=== PATIENT | male | born 1935 | race Caucasian/White ===

== ENCOUNTER → 2016-09-17 | Outpatient (CLI) | payer BC ==
[~2016-09-17] MED LIST: ASCAUNK; ATR25 PO; CALCTAB5 PO; CLON1TAB3 PO; CLX20 PO; LISI20TA PO; OMEG10007 PO; SIMV20TA2 PO; SNQ50 PO; [UNRECOGNIZED DRUG - OTHER] PO
[2016-09-17 14:58] LABS: URINE APPEARANCE CLEAR (CLEAR); URINE BILIRUBIN NEG (NEG); URINE COLOR YELLOW; URINE NITRITE NEG (NEG); URINE PH 7.5 (4.5-7.5); URINE SPECIFIC GRAVITY 1.021 (1.000-1.030); UROBILINOGEN NEG (NEG); ZZUR CULT IF INDIC CLEAN CATCH NO
[2016-09-17 15:06] LABS: BASO % 0.2 %; BASO ABS # 0.02 K/uL (0-0.2); COMPLETE YES; EOS % 0.5 %; HEMATOCRIT 45.9 % (42-52); IG% 0.3 %; LYMPH % 13.4 %; LYMPH ABS # 1.36 K/uL (1.2-3.4); MEAN CELL VOLUME 83.8 fL (80-100); MEAN CORPUSCULAR HEMOGLOBIN 27.2 pg (25-34); MEAN CORPUSCULAR HGB CONC 32.5 g/dl (32-36); MEAN PLATELET VOLUME 8.7 fL (7.4-10.4); NEUT % 78.6 %; PLATELET COUNT 379 K/uL (130-400); RED BLOOD COUNT 5.48 M/uL (4.7-6.1); WHITE BLOOD COUNT 10.16 K/uL (4.8-10.8)
[2016-09-17 15:07] LABS: MANUAL MICROSCOPIC REQUIRED? NO; REVIEW REQ? NO
[2016-09-17 15:37] LABS: AST/SGOT 14 U/L (15-37); BLOOD UREA NITROGEN 16 mg/dl (7-18); BUN/CREATININE RATIO 19.1 (10-20); CALCIUM 9.3 mg/dl (8.5-10.1); CARBON DIOXIDE 29 mmol/L (21-32); CHLORIDE 106 mmol/L (98-107); CREATININE 0.84 mg/dl (0.60-1.40); GLUCOSE 108 mg/dl (70-99); POTASSIUM 4.3 mmol/L (3.5-5.1); SODIUM 140 mmol/L (136-145); URIC ACID 5.3 mg/dl (2.6-7.2)
[2016-09-17 15:41] LABS: ALB/GLOB RATIO 0.9 (0.9-2); ALKALINE PHOSPHATASE 75 U/L (45-117); ALT/SGPT 30 U/L (12-78); RHEUMATOID FACTOR < 10.0 U/mL (0-15)
[2016-09-17 16:00] LABS: LYME DISEASE AB IGG NEG (NEG); LYME DISEASE AB IGM NEG (NEG)
== END | disposition home or self-care (01) ==
LOC: C.LABBC 10:52
PROVIDERS: ATTEND Internal Medicine Geriatric Medicine
DX: I10 Essential (primary) hypertension (principal); M19.90 Unspecified osteoarthritis, unspecified site; M25.519 Pain in unspecified shoulder; E11.9 Type 2 diabetes mellitus without complications

== ENCOUNTER → 2016-09-28 | Outpatient (CLI) | payer BC ==
--- NOTE | 2016-09-28 15:38 | DIAGNOSTIC IMAGING REPORT ---
RIGHT SHOULDER MIN 2 VIEWS ROUTINE CLINICAL HISTORY: BILATERAL SHOULDER PAIN Right pain COMPARISON: None. DISCUSSION: Moderate degenerative change glenohumeral as well as acromioclavicular joint. Several old rib fractures including ribs 345 and 6. Bony mineralization throughout is somewhat diminished. There is no evidence for soft tissue swelling. IMPRESSION: Moderate degenerative change throughout the right shoulder. Several old right-sided rib fractures. Electronically signed by: Tal Wallace M.D. 09/28/2016 3:36 PM Dictated Date/Time: 09/28/2016 3:36 PM
--- NOTE | 2016-09-28 15:40 | DIAGNOSTIC IMAGING REPORT ---
LEFT SHOULDER MIN 2 VIEWS ROUTINE CLINICAL HISTORY: BILATERAL SHOULDER PAIN pain COMPARISON: None. DISCUSSION: Moderate degenerative change acromioclavicular and glenohumeral joint. Bony mineralization is somewhat diminished. There are no abnormal soft tissue calcifications. Moderate degenerative change. Osteopenia. IMPRESSION: Moderate degenerative change. Osteopenia. Electronically signed by: Tal Wallace M.D. 09/28/2016 3:38 PM Dictated Date/Time: 09/28/2016 3:37 PM
--- NOTE | 2016-09-28 15:44 | DIAGNOSTIC IMAGING REPORT ---
BILATERAL KNEES, AP STANDING CLINICAL HISTORY: KNEE PAIN, BILATERAL STANDING KNEES COMPARISON STUDY: Left knee 12/20/2014. FINDINGS: Severe osteoarthritis within the medial compartment of the left knee demonstrating [id number] articulation and subchondral sclerosis. This has progressed. Moderate cartilage space narrowing within the lateral compartment of the right knee and mild cartilage space narrowing within the medial compartment of the right knee. No fracture or dislocation within the right or left knee. Soft tissues are unremarkable. IMPRESSION: 1. Severe osteoarthritis within the medial compartment of the left knee which has progressed. 2. Mild to moderate osteoarthritis within the right knee. Electronically signed by: Eduar Huizar M.D. 09/28/2016 3:42 PM Dictated Date/Time: 09/28/2016 3:41 PM
== END | disposition home or self-care (01) ==
LOC: C.RADBC 14:49
PROVIDERS: ATTEND Internal Medicine Geriatric Medicine
DX: M17.12 Unilateral primary osteoarthritis, left knee (principal); M25.561 Pain in right knee; M25.511 Pain in right shoulder; M85.812 Other specified disorders of bone density and structure, left shoulder

== ENCOUNTER → 2016-10-08 | Outpatient (CLI) | payer BC ==
[2016-10-08 11:54] LABS: BLOOD UREA NITROGEN 16 mg/dl (7-18); BUN/CREATININE RATIO 17.7 (10-20); CALCIUM 9.5 mg/dl (8.5-10.1); CARBON DIOXIDE 30 mmol/L (21-32); CHLORIDE 105 mmol/L (98-107); CREATININE 0.92 mg/dl (0.60-1.40); GLUCOSE 100 mg/dl (70-99); POTASSIUM 3.9 mmol/L (3.5-5.1); SODIUM 142 mmol/L (136-145)
== END | disposition home or self-care (01) ==
LOC: C.LABBC 07:33
PROVIDERS: ATTEND Internal Medicine Geriatric Medicine
DX: I10 Essential (primary) hypertension (principal); E11.9 Type 2 diabetes mellitus without complications

== ENCOUNTER → 2016-11-22 | Outpatient (CLI) | payer BC | END | disposition home or self-care (01) | LOC: C.LABBC 08:24 | PROVIDERS: ATTEND Internal Medicine Rheumatology | DX: M35.3 Polymyalgia rheumatica (principal); R70.0 Elevated erythrocyte sedimentation rate; Z79.52 Long term (current) use of systemic steroids ==

== ENCOUNTER → 2016-12-20 | Outpatient (CLI) | payer BC ==
[2016-12-20 13:47] LABS: BASO % 0.1 %; BASO ABS # 0.01 K/uL (0-0.2); COMPLETE YES; EOS % 0.5 %; HEMATOCRIT 46.5 % (42-52); IG% 0.3 %; LYMPH % 26.7 %; LYMPH ABS # 3.51 K/uL (1.2-3.4); MEAN CELL VOLUME 86.8 fL (80-100); MEAN CORPUSCULAR HEMOGLOBIN 27.1 pg (25-34); MEAN CORPUSCULAR HGB CONC 31.2 g/dl (32-36); MEAN PLATELET VOLUME 9.4 fL (7.4-10.4); MONO % 4.4 %; PLATELET COUNT 294 K/uL (130-400); RED BLOOD COUNT 5.36 M/uL (4.7-6.1); WHITE BLOOD COUNT 13.15 K/uL (4.8-10.8)
[2016-12-20 14:00] LABS: ALT/SGPT 35 U/L (12-78); AST/SGOT 11 U/L (15-37); BLOOD UREA NITROGEN 19 mg/dl (7-18); BUN/CREATININE RATIO 17.5 (10-20); CALCIUM 8.9 mg/dl (8.5-10.1); CARBON DIOXIDE 28 mmol/L (21-32); CHLORIDE 106 mmol/L (98-107); GLUCOSE 277 mg/dl (70-99); POTASSIUM 3.9 mmol/L (3.5-5.1); SODIUM 142 mmol/L (136-145)
[2016-12-20 14:10] LABS: ALB/GLOB RATIO 1.1 (0.9-2); ALKALINE PHOSPHATASE 66 U/L (45-117); FERRITIN 287.1 ng/ml (8.0-388.0); PROSTATE SPECIFIC ANTIGEN 0.541 ng/ml (0.000-4.000)
[2016-12-20 14:18] LABS: ESTIMATED AVERAGE GLUCOSE 174 mg/dl; HA1C FLAG Normal (Normal)
== END | disposition home or self-care (01) ==
LOC: C.LABBC 10:01
PROVIDERS: ATTEND Internal Medicine Rheumatology
DX: I10 Essential (primary) hypertension (principal); E78.5 Hyperlipidemia, unspecified; C61 Malignant neoplasm of prostate; F32.9 Major depressive disorder, single episode, unspecified; M19.90 Unspecified osteoarthritis, unspecified site; G47.61 Periodic limb movement disorder; R73.9 Hyperglycemia, unspecified; E55.9 Vitamin D deficiency, unspecified; M35.3 Polymyalgia rheumatica; Z79.52 Long term (current) use of systemic steroids; T38.0X1A Poisoning by glucocorticoids and synthetic analogues, accidental (unintentional), initial encounter; M81.8 Other osteoporosis without current pathological fracture

== ENCOUNTER → 2016-12-24 | Outpatient (CLI) | payer BC | END | disposition home or self-care (01) | LOC: C.LABSPEC 16:57 | PROVIDERS: ATTEND Urology | DX: R39.9 Unspecified symptoms and signs involving the genitourinary system (principal) ==

== ENCOUNTER → 2016-12-26 | Outpatient (CLI) | payer BC | END | disposition home or self-care (01) | LOC: C.MAMM 09:09 | PROVIDERS: ATTEND Internal Medicine Rheumatology | DX: M85.851 Other specified disorders of bone density and structure, right thigh (principal); M85.852 Other specified disorders of bone density and structure, left thigh ==

== ENCOUNTER → 2017-01-31 | Outpatient (CLI) | payer BC | END | disposition home or self-care (01) | LOC: C.LAB 07:13 | PROVIDERS: ATTEND Internal Medicine Rheumatology | DX: M35.3 Polymyalgia rheumatica (principal); T38.0X1A Poisoning by glucocorticoids and synthetic analogues, accidental (unintentional), initial encounter; E55.9 Vitamin D deficiency, unspecified ==

== ENCOUNTER → 2017-03-12 | Outpatient (CLI) | payer BC | END | disposition home or self-care (01) | LOC: C.LABBC 08:25 | PROVIDERS: ATTEND Internal Medicine Rheumatology | DX: M35.3 Polymyalgia rheumatica (principal); Z51.81 Encounter for therapeutic drug level monitoring; Z79.52 Long term (current) use of systemic steroids; T38.0X1A Poisoning by glucocorticoids and synthetic analogues, accidental (unintentional), initial encounter ==

== ENCOUNTER → 2017-04-15 | Outpatient (CLI) | payer BC ==
[2017-04-15 11:01] LABS: BLOOD UREA NITROGEN 18 mg/dl (7-18); BUN/CREATININE RATIO 17.5 (10-20); CALCIUM 8.9 mg/dl (8.5-10.1); CARBON DIOXIDE 30 mmol/L (21-32); CHLORIDE 107 mmol/L (98-107); CHOLESTEROL 166 mg/dl (0-200); CREATININE 1.01 mg/dl (0.60-1.40); GLUCOSE 126 mg/dl (70-99); POTASSIUM 4.1 mmol/L (3.5-5.1); SODIUM 143 mmol/L (136-145); TRIGLYCERIDES 196 mg/dl (0-150); VERY LOW DENSITY LIPOPROT CALC 39 mg/dl
[2017-04-15 11:06] LABS: ESTIMATED AVERAGE GLUCOSE 143 mg/dl; HA1C FLAG Normal (Normal)
[2017-04-15 11:12] LABS: CHOLESTEROL/HDL RATIO 3.1; HDL CHOLESTEROL 54 mg/dl; LDL CHOLESTEROL CALCULATED 73 mg/dl
[2017-04-15 11:37] LABS: URINE PROTIEN/CREAT RATIO 0.1 (0-0.2); URINE TOTAL PROTEIN 29.9 mg/dl (0-11.9)
== END | disposition home or self-care (01) ==
LOC: C.LABBC 08:12
PROVIDERS: ATTEND Internal Medicine Rheumatology
DX: I10 Essential (primary) hypertension (principal); E78.5 Hyperlipidemia, unspecified; E11.9 Type 2 diabetes mellitus without complications

== ENCOUNTER → 2017-05-01 | Outpatient (CLI) | payer BC ==
--- NOTE | 2017-05-01 11:51 | DIAGNOSTIC IMAGING REPORT ---
CHEST 2 VIEWS ROUTINE HISTORY: COUGH COMPARISON: Chest 04/16/2010. FINDINGS: The lungs are clear. Cardiac silhouette is normal in size. No pleural effusions. No pneumothorax. Old, healed right-sided rib fractures. IMPRESSION: No acute process. Electronically signed by: Eduar Huizar M.D. 05/01/2017 11:49 AM Dictated Date/Time: 05/01/2017 11:48 AM
== END | disposition home or self-care (01) ==
LOC: C.RADBC 11:10
PROVIDERS: ATTEND Internal Medicine Geriatric Medicine
DX: R05 Cough (principal)

== ENCOUNTER → 2017-05-24 | Outpatient (CLI) | payer BC | END | disposition home or self-care (01) | LOC: C.LABBC 07:30 | PROVIDERS: ATTEND Internal Medicine Rheumatology | DX: M35.3 Polymyalgia rheumatica (principal); Z79.52 Long term (current) use of systemic steroids; R60.9 Edema, unspecified; R73.09 Other abnormal glucose ==

== ENCOUNTER → 2017-06-27 | Outpatient (CLI) | payer BC | LOC: C.LABBC 07:54 | PROVIDERS: ATTEND Internal Medicine Rheumatology | DX: M35.3 Polymyalgia rheumatica (principal); Z79.52 Long term (current) use of systemic steroids; R60.9 Edema, unspecified ==

== ENCOUNTER → 2017-07-26 | Outpatient (CLI) | payer BC | END | disposition home or self-care (01) | LOC: C.LABBC 09:26 | PROVIDERS: ATTEND Internal Medicine Rheumatology | DX: M35.3 Polymyalgia rheumatica (principal); Z79.52 Long term (current) use of systemic steroids; M81.8 Other osteoporosis without current pathological fracture; R60.9 Edema, unspecified ==

== ENCOUNTER → 2017-08-01 | Outpatient (CLI) | payer BC | END | disposition home or self-care (01) | LOC: C.RDSM 10:00 | PROVIDERS: ATTEND Family Medicine Sports Medicine | DX: M25.562 Pain in left knee (principal) ==

== ENCOUNTER → 2017-08-02 | Outpatient (CLI) | payer BC | END | disposition home or self-care (01) | LOC: C.LAB 11:06 | PROVIDERS: ATTEND Internal Medicine Gastroenterology | DX: K29.60 Other gastritis without bleeding (principal) ==

== ENCOUNTER → 2017-09-05 | Outpatient (CLI) | payer BC | END | disposition home or self-care (01) | LOC: C.LABBC 10:28 | PROVIDERS: ATTEND Internal Medicine Rheumatology | DX: M35.3 Polymyalgia rheumatica (principal); M81.8 Other osteoporosis without current pathological fracture; R60.9 Edema, unspecified ==

== ENCOUNTER → 2017-10-10 | Outpatient (CLI) | payer BC | END | disposition home or self-care (01) | LOC: C.LABBC 10:25 | PROVIDERS: ATTEND Internal Medicine Rheumatology | DX: M35.3 Polymyalgia rheumatica (principal); M81.8 Other osteoporosis without current pathological fracture; R60.9 Edema, unspecified; M25.562 Pain in left knee ==

== ENCOUNTER 2020-04-24 11:20 | Inpatient (IN) ==
[2020-04-24 11:51] LABS: Hematocrit (blood only) 47.8 % (42-52); Hemoglobin 16.1 g/dL (14.0-18.0); Mean Corpuscular Hemoglobin 28.4 pg (25-34); Mean Corpuscular Hgb Conc 33.7 g/dL (32-36); Mean Corpuscular Volume 84.5 fL (80-100); Mean Platelet Volume 9.1 fL (7.4-10.4); Platelet Count 356 K/uL (130-400); RDW Coefficient of Variation 14.8 % (11.5-14.5); RDW Standard Deviation 45.5 fL (36.4-46.3); Red Blood Count 5.66 M/uL (4.7-6.1); White Blood Count 24.19 K/uL (4.8-10.8)
[2020-04-24 11:54] LABS: INR 1.1 (0.9-1.1); Partial Thromboplastin Ratio 1.1; Prothrombin Time 11.8 Seconds (9.0-12.0)
[2020-04-24 12:00] LABS: Albumin Level 3.8 gm/dl (3.4-5.0); Calcium 9.5 mg/dl (8.5-10.1); Est GFR (African American) 61.8; Est GFR (Non-African American) 53.4; Magnesium 2.3 mg/dl (1.8-2.4); Potassium 4.2 mmol/L (3.5-5.1)
[2020-04-24] MEDS ORDERED: OPTIRAY 320 125ml IV ONE (12:09)
[2020-04-24 12:16] LABS: iSTAT Hemoglobin 16.3 g/dl (14.0-18.0); iSTAT Ionized Calcium 1.16 mmol/l (1.12-1.32); iSTAT Potassium 4.2 mmol/L (3.3-5.0)
--- NOTE | 2020-04-24 12:22 | Emergency Department Note ---
Impression & Plan Fall, Rhabdomyolysis, Abrasion of face, Abrasion of elbow, Abrasion of ankle, Pressure injury of left buttock, stage 2, Acute UTI, Multiple fractures of ribs of left side ED Provider Note Provider: Yuri Dupont MD DATE OF SERVICE:04/24/2020 CHIEF COMPLAINT: Fall, weakness HISTORY OF PRESENT ILLNESS: Patient is a 84-year-old gentleman with a past medical history of type 2 diabetes, prostate cancer, hypertension presenting today via ambulance from home. Patient was in apartment by himself and was found by his daughter today partially under his bed. Patient was stuck there and unable to get up. Patient himself is unsure how long is on the ground. Daughter reports that he last took his supper medications at 5 PM on Saturday and could have been on the floor for more than 36 hours. Patient himself is somewhat difficult to understand as he has some dysarthria. Patient complains of some abrasions on the bilateral elbows, and the right hand. Denies other significant pain at this point. Daughter states that he appears to have some swelling of the left side of his face and a little bit of left facial droop. No reported normal deficits. Daughter states the patient normally ambulates with a cane and unfortunately has been falling more frequently. No fever or infectious URI symptoms are reported. REVIEW OF SYSTEMS: Difficult to obtain secondary the patient's dysarthria and speech issues. PAST MEDICAL HISTORY: As noted above MEDICATIONS: Reviewed the patient's home medication list not included anticoagulants. SOCIAL HISTORY: Lives at home in apartment by himself, retired former smoker PHYSICAL EXAM: GENERAL: alert in no acute distress on stretcher Head: Swelling left-sided facial contusion overlying left islam area and some abrasion. EYES: No injection, discharge or icterus. PERRL NECK: Trachea midline. Supple with some slight swelling on the left side of the neck without crepitus. No posterior midline tenderness. ENT: Mucous membranes pink and moist. LUNGS: Airway patent. No retractions. Breath sounds clear HEART: Regular rate and rhythm mild left-sided chest wall tenderness. ABDOMEN: Soft and non-tender, without guarding or rebound. BACK: No significant midline tenderness. SKIN: Acyanotic, warm, dry. Patient does have a left buttock area and approximate 10 x 14 cm area of stage II pressure ulceration. There is some small faint areas of slight erythema overlying the left lower rib cage and left upper abdomen consistent with likely a stage I pressure ulceration. EXTREMITIES: Patient has some slight abrasions of the bilateral medial lateral ankles, the bilateral elbows, a few abrasions overlying the left dorsal medial hand. No significant snuffbox tenderness. No significant pain with ROM of the lower extremities. Good capillary refill of all extremities. NEUROLOGICAL: No focal deficits. No aphasia. Significant dysarthria and mild left facial droop noted. Intact strength the right upper extremity and right lower extremity. Intact left plantar and dorsiflexion but weakness of the left hip flexion and decreased pain to the left forearm and hand strength iron bender. Patient is improved some with hearing aids but unable to get a good clear history from him on recent events. Patient seems little bit confused and does not seem to quite understand that he is followed and at the hospital currently. EK beats minute sinus tachycardia. No PVC. No acute ST segment elevation or depression. Normal QTC. CONTINUOUS CARDIAC MONITORING: was ordered and showed a heart rate of 98 bpm in normal sinus rhythm GCS 14 some mild confusion Patient's laboratory studies and imaging reviewed. Differential includes Infection, dehydration, metabolic abnormality, hypo/hyperglycemia, electrolyte disturbance, anemia, hypoxia, cardiac sources, intracerebral event, toxicologic, neurologic, traumatic as well as other pathologies. IMPRESSION/MEDICAL DECISION MAKING: Patient presents after being found down and appears to been stuck under his bed for some time. Peers to have some left facial droop, left facial swelling, weakness of the left arm and weakness of the left leg. Concern for stroke is high with dysarthria. Concern for rhabdomyolysis and CK is elevated significantly. Given LR and started on maintenance LR for this. CT of the head and neck were completed as well as traumatic imaging of the cervical spine, chest, and abdomen pelvis. X-rays of the ankles, left femur, and right hand were obtained. Patient does have some mild skin tears of bilateral elbows but no significant tenderness and I doubt fractures here. Small skin tear over the right hand as well as some abrasion of the bilateral ankles is noted with slight contusion. Neck sensation in all extremities. Good capillary perfusion in bilateral hands and feet. Again weakness of straight left leg raise and left hand iron bender and left forearm. Good intact left plantar and dorsiflexion strength. Patient is outside the time window for TPA and more than 36 hours since likely last known well. Thus not made a stroke alert. CT without acute evidence of stroke but this remains in the differential. His weakness in the left side could be related to rhabdo and muscle related injury but do have concerns for possible more central cause. Doubt meningitis. Patient given facial droop to made n.p.o. as fails dysphagia screen. Nursing aware. Patient has a significant leukocytosis likely reactive versus related to UTI. No significant anemia is noted. No anemia. Renal function appears stable but again being aggressively hydrated. AST and ALT elevated likely secondary to the rhabdomyolysis. I doubt acute hepatitis. Slightly detectable but not abnormal troponin is noted likely related to his time being down. Urinalysis is some concern especially with nitrate for possible UTI and treat empirically given the leukocytosis with ceftriaxone. CT scan of the head and neck without acute traumatic injury besides some likely contusion and subcutaneous swelling of the left side of the neck and face. No evidence of acute vascular occlusion, aneurysm, or dissection of the head or neck with some mild plaques noted. TM and pelvis had acute traumatic injury noted. CT of the chest shows left fourth and fifth rib fractures as well as left sixth and seventh rib fractures without evidence of pneumothorax. Patient without significant pain at rest. Did give him a dose of Tylenol. X-rays returned without significant traumatic injury noted. DIAGNOSIS: Rhabdomyolysis, fall, stroke with left-sided weakness, acute UTI, abrasion of elbow, ankles, and face, multiple rib fractures on the left side DISPOSITION: Hospitalist will evaluate for further inpatient care Past Med/Surg History Medical History (Updated 04/24/20 @ 13:15 by Yuri Dupont M.D.) Depression Dyslipidemia Esophagitis Gastroesophageal reflux disease Hearing loss Helicobacter positive gastritis HTN (hypertension) Insomnia Irritable bowel syndrome Malignant neoplasm of prostate (~2010) Mild obstructive sleep apnea Osteoarthritis PMR (polymyalgia rheumatica) Prostate cancer Type 2 diabetes mellitus Vitamin D deficiency Surgical History History of cataract surgery History of colonoscopy History of excision of lesion trunk x 2 History of knee surgery Family History Mother Cancer Hypertension Other Family history non-contributory Denies family history of Clotting disorder Social History (Reviewed 04/14/20 @ 07:28 by KORY Colvin Smoking Status: Unknown if ever smoked packs per day: 1; Years Smoked: 40; Hx Alcohol Use: No Hx Substance Use: No Preferred Language: Icelandic Communication Ability: Effective Visual Impairment: No Limitations Hearing Ability: Use of Hearing Aid Research Associate Policy Required: No marital status: Current Living Situation: Significant Other current occupational status: retired Feels Safe at Home: Yes Childhood Exposure to Second-Hand Smoke: Yes caffeine: Yes Dental Care, Regularly: Yes Physical Activity Frequency: Does not Exercise Seatbelt Use: always Sunscreen Use: No Allergies Allergies Allergy/AdvReac Type Severity Reaction Status Date / Time Penicillins Allergy Unknown UNKNOWN Verified 04/24/20 12:58 celecoxib [From Celebrex] Allergy Verified 04/24/20 12:58 suvorexant [From Belsomra] Allergy Verified 04/24/20 12:58 temazepam Allergy Verified 04/24/20 12:58 venlafaxine [From Effexor] Allergy Verified 04/24/20 12:58 Home Meds Home Medications Medication Instructions Recorded Confirmed multivitamin 1 tab PO QDL 02/03/19 04/24/20 pantoprazole 40 mg tablet,delayed 40 mg PO QAM tab 02/03/19 04/24/20 release cholecalciferol (vitamin D3) 25 25 mcg PO QAM 12/14/19 04/24/20 mcg (1,000 unit) capsule vit C,O-Ey-jvvkt-lutein-zeaxan 1 tab PO BID 12/28/19 04/24/20 [PreserVision AREDS-2] amlodipine 5 mg PO QDL 04/14/20 04/24/20 fesoterodine [Toviaz] 4 mg PO PM 04/14/20 04/24/20 ibuprofen 600 mg PO Q6H PRN 04/14/20 04/24/20 mirtazapine 15 mg PO HS 04/14/20 04/24/20 turmeric 1,500 mg PO PM 04/14/20 04/24/20 Previous Rx's Medication Instructions Recorded simvastatin 20 mg tablet 20 mg PO QAM #90 tab 08/20/19 glimepiride 1 mg tablet 1 mg PO QAM #90 tab 01/18/20 losartan 100 mg tablet 100 mg PO QAM #90 tab 04/08/20 clonazepam 1 mg tablet 1 mg PO HS #30 tab 04/18/20 diclofenac sodium 1 % topical gel 4 g TOPICAL QID #100 g 04/18/20 trazodone 50 mg tablet 100 mg PO HS #60 tab 04/18/20 Results & Data (ED) Vital Signs Vital Signs - 24 hr 04/24/20 11:10 04/24/20 11:23 04/24/20 11:25 Temperature 36.5 C 36.5 C Temperature Source Oral Oral Pulse Rate 105 H 105 H Pulse Rate [Apical] 104 H Pulse Rate from SpO2 Sensor 104 H Pulse Rhythm Regular Pulse Rhythm [Apical] Regular Pulse Strength Normal Pulse Strength [Apical] Normal Respiratory Rate 28 H 28 H 30 H Respiratory Effort / Characteristics Non-Labored Non-Labored Respiratory Depth Normal Respiratory Pattern Regular Blood Pressure 177/85 H 177/85 H Blood Pressure [Left Arm] 177/85 H Blood Pressure Mean 115 101 Blood Pressure Mean [Left Arm] 115 Blood Pressure Position Sitting Blood Pressure Position [Left Arm] Sitting Pulse Oximetry 95 97 95 Oxygen Delivery Method Room Air Room Air Oxygen Flow Rate Sepsis Recent Fever Within 48 Hours No Sepsis New/Unexplained Change in Mental Status Yes Sepsis Action Taken by Nursing Physician Notified 04/24/20 11:46 04/24/20 11:50 04/24/20 11:59 Temperature Temperature Source Pulse Rate 103 H 102 H 101 H Pulse Rate [Apical] Pulse Rate from SpO2 Sensor 104 H 101 H Pulse Rhythm Pulse Rhythm [Apical] Pulse Strength Pulse Strength [Apical] Respiratory Rate 31 H 32 H 29 H Respiratory Effort / Characteristics Respiratory Depth Respiratory Pattern Blood Pressure 132/78 Blood Pressure [Left Arm] Blood Pressure Mean 94 Blood Pressure Mean [Left Arm] Blood Pressure Position Blood Pressure Position [Left Arm] Pulse Oximetry 94 96 Oxygen Delivery Method Room Air Oxygen Flow Rate 94 Sepsis Recent Fever Within 48 Hours Sepsis New/Unexplained Change in Mental Status Sepsis Action Taken by Nursing 04/24/20 12:01 04/24/20 12:29 04/24/20 12:30 Temperature Temperature Source Pulse Rate 101 H Pulse Rate [Apical] Pulse Rate from SpO2 Sensor 97 H 99 H 99 H Pulse Rhythm Pulse Rhythm [Apical] Pulse Strength Pulse Strength [Apical] Respiratory Rate 29 H Respiratory Effort / Characteristics Respiratory Depth Respiratory Pattern Blood Pressure 172/105 H 166/96 H Blood Pressure [Left Arm] Blood Pressure Mean 134 123 Blood Pressure Mean [Left Arm] Blood Pressure Position Blood Pressure Position [Left Arm] Pulse Oximetry 95 97 98 Oxygen Delivery Method Oxygen Flow Rate Sepsis Recent Fever Within 48 Hours Sepsis New/Unexplained Change in Mental Status Sepsis Action Taken by Nursing 04/24/20 12:32 04/24/20 12:40 04/24/20 12:46 Temperature Temperature Source Pulse Rate 99 H 97 H 100 H Pulse Rate [Apical] Pulse Rate from SpO2 Sensor 99 H 97 H Pulse Rhythm Pulse Rhythm [Apical] Pulse Strength Pulse Strength [Apical] Respiratory Rate 8 L 21 24 Respiratory Effort / Characteristics Respiratory Depth Respiratory Pattern Blood Pressure 140/128 H Blood Pressure [Left Arm] Blood Pressure Mean 130 Blood Pressure Mean [Left Arm] Blood Pressure Position Blood Pressure Position [Left Arm] Pulse Oximetry 97 97 Oxygen Delivery Method Oxygen Flow Rate Sepsis Recent Fever Within 48 Hours Sepsis New/Unexplained Change in Mental Status Sepsis Action Taken by Nursing 04/24/20 13:31 04/24/20 13:32 Temperature Temperature Source Pulse Rate 103 H 102 H Pulse Rate [Apical] Pulse Rate from SpO2 Sensor 102 H Pulse Rhythm Pulse Rhythm [Apical] Pulse Strength Pulse Strength [Apical] Respiratory Rate 27 H 30 H Respiratory Effort / Characteristics Respiratory Depth Respiratory Pattern Blood Pressure 165/83 H Blood Pressure [Left Arm] Blood Pressure Mean 89 Blood Pressure Mean [Left Arm] Blood Pressure Position Blood Pressure Position [Left Arm] Pulse Oximetry 94 Oxygen Delivery Method Oxygen Flow Rate Sepsis Recent Fever Within 48 Hours Sepsis New/Unexplained Change in Mental Status Sepsis Action Taken by Nursing Laboratory Data Result diagrams: 04/24/20 Unknown 04/24/20 Unknown Lab Results 04/24/20 04/24/20 04/24/20 Range/Units 11:34 11:43 11:51 WBC (4.8-10.8) K/uL RBC (4.7-6.1) M/uL Hgb (14.0-18.0) g/dL POC Hgb (14.0-18.0) g/dl Hct (42-52) % POC Hct (42-52) % MCV (80-100) fL MCH (25-34) pg MCHC (32-36) g/dL RDW Std Deviation (36.4-46.3) fL RDW Coeff of Amilcar (11.5-14.5) % Plt Count (130-400) K/uL MPV (7.4-10.4) fL Immature Gran % (Auto) % Neut % (Auto) % Lymph % (Auto) % [place] % (Auto) % Eos % (Auto) % Baso % (Auto) % Neut # (Auto) (1.4-6.5) K/uL Lymph # (Auto) (1.2-3.4) K/uL [place] # (Auto) (0.11-0.59) K/uL Eos # (Auto) (0-0.5) K/uL Baso # (Auto) (0-0.2) K/uL Immature Gran # (Auto) (0.00-0.02) K/uL PT (9.0-12.0) Seconds INR (0.9-1.1) APTT (21.0-31.0) Seconds PTT Ratio POC Sodium (135-144) mmol/L Sodium (136-145) mmol/L POC Potassium (3.3-5.0) mmol/L Potassium (3.5-5.1) mmol/L POC Chloride (101-112) mmol/L Chloride (98-107) mmol/L Carbon Dioxide (21-32) mmol/L POC Total CO2 (24-31) mmol/L Anion Gap (3-11) POC Anion Gap (16-25) mmol/L POC BUN (7-18) mg/dl BUN (7-18) mg/dl Creatinine (0.6-1.4) mg/dl POC Creatinine (0.6-1.3) mg/dl Est Cr Clr Drug Dosing ml/min Est GFR ( Amer) Est GFR (Non-Af Amer) BUN/Creatinine Ratio (10-20) Glucose (70-99) mg/dl POC Glucose 166 H (70-99) mg/dl POC Glucose (other) (70-99) mg/dl Calcium (8.5-10.1) mg/dl POC Ioniz Calcium Daysi (1.12-1.32) mmol/l Magnesium (1.8-2.4) mg/dl Total Bilirubin (0.2-1) mg/dl AST (15-37) U/L ALT (12-78) U/L Alkaline Phosphatase (45-117) U/L Total Creatine Kinase (39-308) U/L Troponin I (0-0.045) ng/ml Total Protein (6.4-8.2) gm/dl Albumin (3.4-5.0) gm/dl Globulin (2.5-4.0) gm/dl Albumin/Globulin Ratio (0.9-2) Urine Color [place] Urine Appearance Turbid A (Clear) Urine pH 5.5 (4.5-7.5) Ur Specific [place] 1.027 (1.000-1.030) Urine Protein 3+ H (Negative) Urine Glucose (UA) Negative (Negative) Urine Ketones Trace H (Negative) Urine Blood 3+ H (Negative) Urine Nitrite Positive A (Negative) Urine Bilirubin Negative (Negative) Urine Urobilinogen Negative (Negative) Ur Leukocyte Esterase 2+ H (Negative) Urine WBC (Auto) >30 H (0-5) /hpf Urine RBC (Auto) 5-10 H (0-4) /hpf U Hyaline Cast (Auto) Not Reportable U Epithel Cells (Auto) 5-10 H (0-5) /lpf Urine Bacteria (Auto) 2+ H (Negative) Urine Crystals Not Reportable Calcium Oxalate Crystal Present A (None Prsent) Amorphous Sediment Present A (None Prsent) Urine Yeast Not Reportable Blood Type O Positive Antibody Screen NEGATIVE 04/24/20 04/24/20 04/24/20 Range/Units 12:02 Unknown Unknown WBC 24.19 H (4.8-10.8) K/uL RBC 5.66 (4.7-6.1) M/uL Hgb 16.1 (14.0-18.0) g/dL POC Hgb 16.3 (14.0-18.0) g/dl Hct 47.8 (42-52) % POC Hct 48 (42-52) % MCV 84.5 (80-100) fL MCH 28.4 (25-34) pg MCHC 33.7 (32-36) g/dL RDW Std Deviation 45.5 (36.4-46.3) fL RDW Coeff of Amilcar 14.8 H (11.5-14.5) % Plt Count 356 (130-400) K/uL MPV 9.1 (7.4-10.4) fL Immature Gran % (Auto) 0.5 % Neut % (Auto) 86.7 % Lymph % (Auto) 7.5 % [place] % (Auto) 5.3 % Eos % (Auto) 0.0 % Baso % (Auto) 0.0 % Neut # (Auto) 20.98 H (1.4-6.5) K/uL Lymph # (Auto) 1.82 (1.2-3.4) K/uL [place] # (Auto) 1.27 H (0.11-0.59) K/uL Eos # (Auto) 0.00 (0-0.5) K/uL Baso # (Auto) 0.01 (0-0.2) K/uL Immature Gran # (Auto) 0.11 H (0.00-0.02) K/uL PT 11.8 (9.0-12.0) Seconds INR 1.1 (0.9-1.1) APTT 32.0 H (21.0-31.0) Seconds PTT Ratio 1.1 POC Sodium 143 (135-144) mmol/L Sodium (136-145) mmol/L POC Potassium 4.2 (3.3-5.0) mmol/L Potassium (3.5-5.1) mmol/L POC Chloride 104 (101-112) mmol/L Chloride (98-107) mmol/L Carbon Dioxide (21-32) mmol/L POC Total CO2 25 (24-31) mmol/L Anion Gap (3-11) POC Anion Gap 18.0 (16-25) mmol/L POC BUN 34 H (7-18) mg/dl BUN (7-18) mg/dl Creatinine (0.6-1.4) mg/dl POC Creatinine 1.0 (0.6-1.3) mg/dl Est Cr Clr Drug Dosing ml/min Est GFR ( Amer) Est GFR (Non-Af Amer) BUN/Creatinine Ratio (10-20) Glucose (70-99) mg/dl POC Glucose (70-99) mg/dl POC Glucose (other) 178 H (70-99) mg/dl Calcium (8.5-10.1) mg/dl POC Ioniz Calcium Daysi 1.16 (1.12-1.32) mmol/l Magnesium (1.8-2.4) mg/dl Total Bilirubin (0.2-1) mg/dl AST (15-37) U/L ALT (12-78) U/L Alkaline Phosphatase (45-117) U/L Total Creatine Kinase (39-308) U/L Troponin I (0-0.045) ng/ml Total Protein (6.4-8.2) gm/dl Albumin (3.4-5.0) gm/dl Globulin (2.5-4.0) gm/dl Albumin/Globulin Ratio (0.9-2) Urine Color Urine Appearance (Clear) Urine pH (4.5-7.5) Ur Specific [place] (1.000-1.030) Urine Protein (Negative) Urine Glucose (UA) (Negative) Urine Ketones (Negative) Urine Blood (Negative) Urine Nitrite (Negative) Urine Bilirubin (Negative) Urine Urobilinogen (Negative) Ur Leukocyte Esterase (Negative) Urine WBC (Auto) (0-5) /hpf Urine RBC (Auto) (0-4) /hpf U Hyaline Cast (Auto) U Epithel Cells (Auto) (0-5) /lpf Urine Bacteria (Auto) (Negative) Urine Crystals Calcium Oxalate Crystal (None Prsent) Amorphous Sediment (None Prsent) Urine Yeast Blood Type Antibody Screen 04/24/20 Range/Units Unknown WBC (4.8-10.8) K/uL RBC (4.7-6.1) M/uL Hgb (14.0-18.0) g/dL POC Hgb (14.0-18.0) g/dl Hct (42-52) % POC Hct (42-52) % MCV (80-100) fL MCH (25-34) pg MCHC (32-36) g/dL RDW Std Deviation (36.4-46.3) fL RDW Coeff of Amilcar (11.5-14.5) % Plt Count (130-400) K/uL MPV (7.4-10.4) fL Immature Gran % (Auto) % Neut % (Auto) % Lymph % (Auto) % [place] % (Auto) % Eos % (Auto) % Baso % (Auto) % Neut # (Auto) (1.4-6.5) K/uL Lymph # (Auto) (1.2-3.4) K/uL [place] # (Auto) (0.11-0.59) K/uL Eos # (Auto) (0-0.5) K/uL Baso # (Auto) (0-0.2) K/uL Immature Gran # (Auto) (0.00-0.02) K/uL PT (9.0-12.0) Seconds INR (0.9-1.1) APTT (21.0-31.0) Seconds PTT Ratio POC Sodium (135-144) mmol/L Sodium 143 (136-145) mmol/L POC Potassium (3.3-5.0) mmol/L Potassium 4.2 (3.5-5.1) mmol/L POC Chloride (101-112) mmol/L Chloride 107 (98-107) mmol/L Carbon Dioxide 28 (21-32) mmol/L POC Total CO2 (24-31) mmol/L Anion Gap 8.0 (3-11) POC Anion Gap (16-25) mmol/L POC BUN (7-18) mg/dl BUN 33 H (7-18) mg/dl Creatinine 1.22 (0.6-1.4) mg/dl POC Creatinine (0.6-1.3) mg/dl Est Cr Clr Drug Dosing 42.0 ml/min Est GFR ( Amer) 61.8 Est GFR (Non-Af Amer) 53.4 BUN/Creatinine Ratio 27.0 H (10-20) Glucose 168 H (70-99) mg/dl POC Glucose (70-99) mg/dl POC Glucose (other) (70-99) mg/dl Calcium 9.5 (8.5-10.1) mg/dl POC Ioniz Calcium Daysi (1.12-1.32) mmol/l Magnesium 2.3 (1.8-2.4) mg/dl Total Bilirubin 0.5 (0.2-1) mg/dl AST 401 H (15-37) U/L ALT 129 H (12-78) U/L Alkaline Phosphatase 87 (45-117) U/L Total Creatine Kinase 21990 H (39-308) U/L Troponin I 0.039 (0-0.045) ng/ml Total Protein 7.8 (6.4-8.2) gm/dl Albumin 3.8 (3.4-5.0) gm/dl Globulin 4.0 (2.5-4.0) gm/dl Albumin/Globulin Ratio 1.0 (0.9-2) Urine Color Urine Appearance (Clear) Urine pH (4.5-7.5) Ur Specific [place] (1.000-1.030) Urine Protein (Negative) Urine Glucose (UA) (Negative) Urine Ketones (Negative) Urine Blood (Negative) Urine Nitrite (Negative) Urine Bilirubin (Negative) Urine Urobilinogen (Negative) Ur Leukocyte Esterase (Negative) Urine WBC (Auto) (0-5) /hpf Urine RBC (Auto) (0-4) /hpf U Hyaline Cast (Auto) U Epithel Cells (Auto) (0-5) /lpf Urine Bacteria (Auto) (Negative) Urine Crystals Calcium Oxalate Crystal (None Prsent) Amorphous Sediment (None Prsent) Urine Yeast Blood Type Antibody Screen Administered Medications Lactated Ringer's (Lr) 1,000 mls @ 125 mls/hr IV .Q8H JEN Stop: 05/24/20 12:29 Last Admin: 04/24/20 13:37 Dose: 125 mls/hr Documented by: [id number] Discontinued Medications Lactated Ringer's (Lr) 1,000 mls @ 999 mls/hr IV .Q1H1M ONE Stop: 04/24/20 13:30 Last Infusion: 04/24/20 14:00 Dose: 0 mls/hr Documented by: [id number] Admin: 04/24/20 12:37 Dose: 999 mls/hr Documented by: [id number] Ceftriaxone Sodium (Rocephin) 2,000 mg in 70 mls @ 140 mls/hr IV NOW STA Stop: 04/24/20 13:23 Last Admin: 04/24/20 13:58 Dose: 140 mls/hr Documented by: [id number] Acetaminophen (Ofirmev) 1,000 mg in 100 mls @ 400 mls/hr IV NOW STA Stop: 04/24/20 13:31 Last Infusion: 04/24/20 14:00 Dose: 0 mls/hr Documented by: [id number] Admin: 04/24/20 13:30 Dose: 400 mls/hr Documented by: [id number] Ioversol (Optiray 320 125ml) 120 ml IV ONCE ONE Stop: 04/24/20 12:10 Last Admin: 04/24/20 12:09 Dose: 120 ml Documented by: [id number] Discharge Plan Visit Data Chief Complaint: Stroke/CVA Symptoms Stated Complaint: stroke symptoms ED Provider: Yuri Dupont Discharge Problem: Fall, Rhabdomyolysis, Abrasion of face, Abrasion of elbow, Abrasion of ankle, Pressure injury of left buttock, stage 2, Acute UTI, Multiple fractures of ribs of left side Patient Disposition: Admitted As Inpatient Forms Stand Alone Forms: My [facility] Prescriptions Prescriptions: No Action simvastatin 20 mg tablet 20 mg PO QAM Qty: 90 RF: 3 glimepiride 1 mg tablet 1 mg PO QAM Qty: 90 RF: 3 losartan 100 mg tablet 100 mg PO QAM Qty: 90 RF: 2 pantoprazole 40 mg tablet,delayed release (DR/EC) 40 mg PO QAM RF: 0 multivitamin [Multiple Vitamins] tablet 1 tab PO QDL RF: 0 cholecalciferol (vitamin D3) 25 mcg (1,000 unit) capsule 25 mcg PO QAM RF: 0 diclofenac sodium 1 % gel 4 g topical QID Qty: 100 RF: 2 trazodone 50 mg tablet 100 mg PO HS Qty: 60 RF: 2 clonazepam 1 mg tablet 1 mg PO HS Qty: 30 RF: 1 PreserVision AREDS-2 [id number] Capsule 1 tab PO BID RF: 0 ibuprofen 200 mg Tablet 600 mg PO Q6H PRN (Reason: Pain) RF: 0 turmeric 400 mg Capsule 1,500 mg PO PM RF: 0 amlodipine 5 mg tablet 5 mg PO QDL RF: 0 mirtazapine 15 mg tablet 15 mg PO HS RF: 0 Toviaz 4 mg tablet extended release 24 hr 4 mg PO PM RF: 0 Referrals Referrals: Bo Mitchell DO [Primary Care Provider] - Discharge Problem: Fall Qualifiers: Encounter type: initial encounter Qualified Code(s): W19.XXXA - Unspecified fall, initial encounter Rhabdomyolysis Qualifiers: Rhabdomyolysis type: traumatic Encounter type: initial encounter Qualified Code(s): T79.6XXA - Traumatic ischemia of muscle, initial encounter Abrasion of face Qualifiers: Encounter type: initial encounter Qualified Code(s): S00.81XA - Abrasion of other part of head, initial encounter Abrasion of elbow Qualifiers: Encounter type: initial encounter Laterality: unspecified laterality Qualified Code(s): S50.319A - Abrasion of unspecified elbow, initial encounter Abrasion of ankle Qualifiers: Encounter type: initial encounter Laterality: unspecified laterality Qualified Code(s): S90.519A - Abrasion, unspecified ankle, initial encounter Multiple fractures of ribs of left side Qualifiers: Encounter type: initial encounter Fracture type: closed Qualified Code(s): S22.42XA - Multiple fractures of ribs, left side, initial encounter for closed fracture
[2020-04-24 12:26] LABS: Bilirubin,Total 0.5 mg/dl (0.2-1); Total Protein 7.8 gm/dl (6.4-8.2); Troponin I 0.039 ng/ml (0-0.045)
[2020-04-24 12:28] LABS: Basophils # (auto) 0.01 K/uL (0-0.2); Immature Granulocytes # (auto) 0.11 K/uL (0.00-0.02); Immature Granulocytes % (auto) 0.5 %; Lymphocytes # (auto) 1.82 K/uL (1.2-3.4); Lymphocytes % (auto) 7.5 %; Monocytes # (auto) 1.27 K/uL (0.11-0.59); Monocytes % (auto) 5.3 %; Neutrophils # (auto) 20.98 K/uL (1.4-6.5); Neutrophils % (auto) 86.7 %
[2020-04-24] MEDS ORDERED: LACTATED RINGER'S 1,000 ML IV SCH (12:30)
[2020-04-24] MEDS ORDERED: LACTATED RINGER'S 1,000 ML IV ONE (12:30)
--- NOTE | 2020-04-24 12:30 | CT Scan Report ---
CT OF THE HEAD WITHOUT CONTRAST CLINICAL HISTORY: Stroke evaluation. Fall. COMPARISON STUDY: No previous studies for comparison. TECHNIQUE: Helical axial images of the head were obtained without IV contrast. Automated exposure con trol was utilized for the study. A dose lowering technique was utilized adhering to the principles o f ALARA. FINDINGS: No acute intracranial hemorrhage, midline shift or mass effect is present. The ventricular system is unremarkable. The basal cisterns are patent. No extra-axial collections are present. There are no findings to suggest acute dural sinus thrombosis or acute territorial infarct. No significant calvarial abnormalities are present. Right maxillary sinus mucous retention cyst is noted.. Note is m isabel of extensive left facial and scalp soft tissue swelling. IMPRESSION: 1. No acute intracranial findings. 2. Extensive left facial and scalp soft tissue swelling. This favors a contusion given history of fal l. No calvarial fracture. ACT 112: Negative or not required by law. Electronically signed by: George Luna M.D. 04/24/2020 12:29 PM
[2020-04-24 12:31] LABS: Appearance Urine Turbid (Clear); Bilirubin Urine Negative (Negative); Blood Urine 3+ (Negative); Color Urine Orange; Glucose Urine UA Negative (Negative); Ketones Urine Trace (Negative); Leukocyte Esterase Urine 2+ (Negative); Nitrite Urine Positive (Negative); Protein Urine 3+ (Negative); Specific Gravity Urine 1.027 (1.000-1.030); Urobilinogen Urine Negative (Negative); pH Urine 5.5 (4.5-7.5)
--- NOTE | 2020-04-24 12:33 | CT Scan Report ---
CT OF THE CERVICAL SPINE WITHOUT CONTRAST CLINICAL HISTORY: fall COMPARISON STUDY: No previous studies for comparison. TECHNIQUE: Helical axial images of the cervical spine were obtained without IV contrast. Sagittal a nd coronal reconstructions were viewed. Automated exposure control was utilized for the study. A do se lowering technique was utilized adhering to the principles of ALARA. FINDINGS: Reversal of the normal cervical lordosis is noted. 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 Central canal and neural foramen are subo ptimally assessed by CT Anterior left neck subcutaneous infiltration is noted. This favors a contusio n. IMPRESSION: 1. No acute cervical spine fracture or subluxation. 2. Severe multilevel degenerative changes within the cervical spine. 3. Anterior left neck subcutaneous infiltration which is nonspecific but favors a contusion given the history of fall. ACT 112: Negative or not required by law. Electronically signed by: George Luna M.D. 04/24/2020 12:32 PM
--- NOTE | 2020-04-24 12:37 | CT Scan Report ---
CT ANGIOGRAPHY OF THE NECK WITH CONTRAST CLINICAL HISTORY: Stroke evaluation. Fall. COMPARISON STUDY: No previous studies for comparison. Technique: CT angiography of the carotid and vertebral arteries was obtained using [employer] 320 IV and 3D reconstruction on an independent workstation. NASCET criteria was utilized. Automated exposure c ontrol was utilized for the study. A dose lowering technique was utilized adhering to the principles of ALARA. Findings: Note is made of anterior and left neck subcutaneous infiltration and edema. No acute cervic al spine fracture is noted. There is no cervical lymphadenopathy. Epiglottis is normal. There is mode rate plaque within the bilateral cervical internal carotid arteries without significant stenosis. The bilateral vertebral arteries are patent. There is no dissection or aneurysm within the major vascula ture of the neck. The CTA of the head will be reported separately. IMPRESSION: Moderate atherosclerotic plaque within the proximal bilateral internal carotid arteries without signi ficant stenosis. ACT 112: Negative or not required by law. Electronically signed by: George Luna M.D. 04/24/2020 12:35 PM
--- NOTE | 2020-04-24 12:39 | CT Scan Report ---
CTA ANGIOGRAPHY OF THE HEAD CLINICAL HISTORY: Stroke evaluation. Fall. COMPARISON STUDY: No previous studies for comparison. TECHNIQUE: Helical axial images of the head were obtained following uneventful intravenous administr ation of 120 cc of Optiray 320. Sagittal and coronal reconstructions were viewed as well as maximal i ntensity projections on an independent 3-D workstation. Automated exposure control was utilized for the study. A dose lowering technique was utilized adhering to the principles of ALARA. FINDINGS: Please note that the head CT will be reported separately. No acute intracranial hemorrhage, midline shift or mass effect is present. Ventricular system is unremarkable. The basilar cisterns ar e patent. There are no extraaxial collections. There is moderate plaque within the bilateral cavernou s carotids without significant stenosis. Major intracranial vessels are patent. There is no central v essel occlusion. There is no intraluminal thrombus. Posterior circulation is intact. No intracranial aneurysm is identified. IMPRESSION: Unremarkable CT of the head. Plaque within the bilateral cavernous carotids without sten osis. No central vessel occlusion. ACT 112: Negative or not required by law. Electronically signed by: George Luna M.D. 04/24/2020 12:38 PM
--- NOTE | 2020-04-24 12:45 | CT Scan Report ---
CT OF THE CHEST WITH IV CONTRAST CLINICAL HISTORY: fall COMPARISON STUDY: Chest radiograph April 14, 2020. TECHNIQUE: Following IV administration of 94 mL of Optiray-320, helical axial images of the chest we re obtained. Sagittal and coronal reconstructions were viewed as well as maximal intensity projectio ns on an independent 3-D workstation. Automated exposure control was utilized for the study. A dose lowering technique was utilized adhering to the principles of ALARA. FINDINGS: Left neck and upper chest subcutaneous infiltration and edema is noted. There is no eviden ce for traumatic injury to the thoracic aorta. Note is made of moderate cardiomegaly with coronary ar ilya calcification. No lymphadenopathy is present. No pneumothorax or pleural effusion is noted. Ling ular opacity favors atelectasis. Note is made of acute nondisplaced fractures of the lateral left fou rth and fifth ribs. There are are acute minimally distracted fractures of the lateral left sixth and seventh ribs. The abdomen and pelvis will be reported separately. No acute thoracic spine fracture is noted. IMPRESSION: 1. No evidence for traumatic injury to the thoracic aorta. 2. Acute nondisplaced fractures of the lateral left fourth and fifth ribs and acute minimally distrac james fractures of the lateral left sixth and seventh ribs. No pneumothorax. ACT 112: Negative or not required by law. Electronically signed by: George Luna M.D. 04/24/2020 12:44 PM
[2020-04-24 12:50] LABS: Amorphous Sediment Urine Present (None Prsent); Bacteria Urine Automated 2+ (Negative); Calcium Oxalate Crystals Urine Present (None Prsent); WBC Urine Automated >30 /hpf (0-5)
--- NOTE | 2020-04-24 12:51 | CT Scan Report ---
CT OF THE ABDOMEN AND PELVIS WITH CONTRAST CLINICAL HISTORY: fall COMPARISON STUDY: CT of the abdomen and pelvis December 28, 2019. TECHNIQUE: Following IV administration of 120 mL of Optiray-320, axial images of the abdomen and pelv is were obtained from the lung bases to the proximal femurs. Images were reviewed in the axial, sagit kehinde, and coronal planes. IV contrast was administered without complication. Automated exposure contr ol was utilized for the study. A dose lowering technique was utilized adhering to the principles of ALARA. CT DOSE: 2633.30 mGy.cm FINDINGS: Multiple acute left-sided rib fractures are noted on the chest CT. Please that report for f urther description. This exam is mildly compromised by motion artifact. 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 Several splenules are present. There is no evidence for traumatic injury to the liver, spleen , adrenal glands or kidneys. There are numerous bilateral renal cysts. Left adrenal nodules are uncha nged to these are likely benign. There is no biliary or pancreatic ductal dilatation. There is no lym phadenopathy. Colonic diverticulosis is noted without evidence for acute diverticulitis. There is no evidence for a bowel obstruction. No acute lumbar spine or pelvic fracture is identified. IMPRESSION: 1. No acute traumatic findings within the abdomen or pelvis. 2. Multiple acute left rib fractures. Please see chest CT report for further description. ACT 112: Negative or not required by law. Electronically signed by: George Luna M.D. 04/24/2020 12:50 PM
[2020-04-24] MEDS ORDERED: cefTRIAXone SODIUM 2,000 MG/70 ML BAG IV STA (12:54)
[2020-04-24] MEDS ORDERED: ACETAMINOPHEN 1,000 MG/100 ML VIAL IV STA (13:17)
--- NOTE | 2020-04-24 13:32 | History & Physical Report ---
Date of Service April 24, 2020 Assessment & Plan (1) CVA (cerebral vascular accident): Suspected CVA, patient last known well on Saturday04/22/2020 at 0900 in the morning, outside therapuetic window. CTA of head and CTA of neck perfomred. Will obtain MRI for evaluation. - Stroke orderset completed - Neurological exams per protocol GCS 14 - ASA to be started with bleeding ruled out - Continue home statin therapy, has room to increase- will await neurology recommendations - Neurology consulted- Appreciate recs - PT/OT consults - Dysphagia screening, advance oral intake if able - Will continue Amlodipine for now, will hold all other blood pressure and sedating medications. - VTE PPX Scd's for now - Telemetry for 24 hours. (2) Fall: - Admit to med Surg - PT/OT consults - CM to assist with dc planning for rehab as pt fell at the end of March as noted in PCP note - Supportive therapy with pain medication, IVF - Fall precautions - Patient unable to recall any events leading up to fall - Home safety evaluation and case management for placement evaluation following admission. (3) Abrasion of face: (4) Abrasion of elbow: (5) Abrasion of ankle: (6) Multiple fractures of ribs of left side: - Left 4,5,6,7 acute fracture - Incentive spirometry, flutter, pulmonary toilet, pain control - bacitracin ointment to abrased areas (7) Pressure injury of left buttock, stage 2: - Wound consult, sustained s/p fall onto the ground (8) Rhabdomyolysis: - CK of 13,785 on admission, aggressive hydration guided by urine output. Will replace with LR, patient is high risk. Urine PH 5.5 - Laid on the floor since fall which occured on Saturday, (>48hrs minimum) - No acute kidney issues at this time, trend BMP - Place pisano catheter to guide resuscitation (9) Acute UTI: - UA appears grossly infected, follow urine culture - Continue ceftriaxone (10) Type 2 diabetes mellitus: - A1C = 6.6 from 04/18/20 - ISS with accuchecks achs - Hold glimepiride (11) HTN (hypertension): - HOLD losartan and cont amlodipine for now, BP slightly elevated, follow BMP to ensure no JEREMY. (12) Dyslipidemia: - Cont simvastatin - AM lipids panel - Adjust therapy if needed (13) Gastroesophageal reflux disease: - Cont pantoprazole (14) Depression: - HOLD trazodone 100 mg HS, mirtazapine 15 mg HS, clonazepam 1 mg HS (15) Prostate cancer: No acute needs. Pisano catheter will be placed. (16) PMR (polymyalgia rheumatica): - Hx of such DVT ppx: SCD's CODE: DNR/DNI Dispo: From home, PT/OT, CM to assist with dc planning History of Present Illness Primary Care Provider: Bo Mitchell DO This is a 84-year-old male with PMHx of DM type II, HTN, HLD, depression, prostate cancer, GERD, who presents after being found on the ground in his home apartment bedroom by daughter. Last time known well Saturday morning around 9 AM. His last dose of pills known to be taken was Saturday afternoon. He recently fell about 2 weeks ago where he was evaluated here in the ER, after tripping on a blanket when trying to get out of bed. It is unknown how he fell at this point, and the patient is very confused. He is mumbling incoherently, unable to provide any recall of events, and cannot answer any questions. He does follow commands without difficulty. Patient has several areas of bruising and lacerations. Most significant is over his left elbow, and the left rib cage where multiple areas of bruising is. He also has a small area of abrasion over the right ring finger and middle finger, bilateral knees, bilateral ankles, and left temporal region with swelling moving down into the side of his left face. His daughter is present with him at bedside, states that she is the only family member in the area. He is able to asked me for water for his mouth. Denies any other specific complaints. Patient has full ROM to all extremities and neck. No pin-point tenderness to cervical or thoracic spine. Imaging performed in the [facility] negavitve. Allergies Allergy/AdvReac Type Severity Reaction Status Date / Time Penicillins Allergy Unknown UNKNOWN Verified 04/24/20 12:58 celecoxib [From Celebrex] Allergy Verified 04/24/20 12:58 suvorexant [From Belsomra] Allergy Verified 04/24/20 12:58 temazepam Allergy Verified 04/24/20 12:58 venlafaxine [From Effexor] Allergy Verified 04/24/20 12:58 Home Medications Home Medications Medication Instructions Recorded Confirmed Type multivitamin 1 tab PO QDL 02/03/19 04/24/20 History pantoprazole 40 mg tablet,delayed 40 mg PO QAM tab 02/03/19 04/24/20 History release simvastatin 20 mg tablet 20 mg PO QAM #90 tab 08/20/19 04/24/20 Rx cholecalciferol (vitamin D3) 25 25 mcg PO QAM 12/14/19 04/24/20 History mcg (1,000 unit) capsule vit C,T-Lk-ozinv-lutein-zeaxan 1 tab PO BID 12/28/19 04/24/20 History [PreserVision AREDS-2] glimepiride 1 mg tablet 1 mg PO QAM #90 tab 01/18/20 04/24/20 Rx losartan 100 mg tablet 100 mg PO QAM #90 tab 04/08/20 04/24/20 Rx amlodipine 5 mg PO QDL 04/14/20 04/24/20 History fesoterodine [Toviaz] 4 mg PO PM 04/14/20 04/24/20 History ibuprofen 600 mg PO Q6H PRN 04/14/20 04/24/20 History mirtazapine 15 mg PO HS 04/14/20 04/24/20 History turmeric 1,500 mg PO PM 04/14/20 04/24/20 History clonazepam 1 mg tablet 1 mg PO HS #30 tab 04/18/20 04/24/20 Rx diclofenac sodium 1 % topical gel 4 g TOPICAL QID #100 g 04/18/20 04/24/20 Rx trazodone 50 mg tablet 100 mg PO HS #60 tab 04/18/20 04/24/20 Rx Past Med/Surg History Medical History (Updated 04/24/20 @ 14:49 by Tessie Sidhu PA-C) Depression Dyslipidemia Esophagitis Gastroesophageal reflux disease Hearing loss Helicobacter positive gastritis HTN (hypertension) Insomnia Irritable bowel syndrome Malignant neoplasm of prostate (~2010) Mild obstructive sleep apnea Osteoarthritis PMR (polymyalgia rheumatica) Prostate cancer Type 2 diabetes mellitus Vitamin D deficiency Surgical History History of cataract surgery History of colonoscopy History of excision of lesion trunk x 2 History of knee surgery Family History Mother Cancer Hypertension Other Family history non-contributory Denies family history of Clotting disorder Social History Smoking Status: Former smoker packs per day: 1; Years Smoked: 40; Second Hand Exposure: No; Do You Dip or Chew Tobacco: No; Tobacco Cessation Education Requested by Patient: No Hx Alcohol Use: No Hx Substance Use: No Preferred Language: Swazi Communication Ability: Effective Visual Impairment: No Limitations Hearing Ability: Use of Hearing Aid Drilling Manager Required: No Beliefs That Will Affect Care: None marital status: Current Living Situation: Alone current occupational status: retired Other Information That Helps Us Care for You: No Feels Safe at Home: Yes Safety Concerns: Feels Safe At This Time Childhood Exposure to Second-Hand Smoke: Yes caffeine: Yes Dental Care, Regularly: Yes Physical Activity Frequency: Does not Exercise Seatbelt Use: always Sunscreen Use: No Assistive Devices: Glasses and Hearing Aid - Bilateral Review of Systems Review of Systems: Unobtainable due to cognitive status ROS reviewed with daughter Joann. Majority of history and information obtained via her. Physical Exam Physical Exam: General: Confused GCS 14, awake, alert, no apparent distress Head: Normocephalic, bruising to left side temporal region with swelling, ecchymosis is dark with lineal pattern over christian that extends to middle of ear. ENT: PERRL, EOMI, no pharyngeal exudate, mucous membranes moist Chest: Pain to palpation along left side 4-6 ribs, abrasions and ecchymosis as noted in the HPI Clear to auscultation, on room air, no adventitious breath sounds, Telemetry reviewed with no dysrythmias. Cardiac: Regular rate and rhythm, no murmur, no JVD, normal peripheral pulses, good capillary refill Abdominal: NABS x 4 quadrants, soft, nondistended, nontender to palpation, no rebound or guarding Extremities: Normal inspection, no peripheral edema or erythema, calfs nontender to palpation, left hip tender to palpation, pelvis stable, abrasions as noted in the HPI. Psych: Normal mood and affect Neuro: NOT oriented to person place or time, ROM and strength intact bilaterally and rated 5/5, no motor deficits, speech is slurred and does not answer questions appropriately, no peripheral sensory deficits noted. Constitutional: WD/WN, vitals as above Eyes: normal visual garcía by confrontation and + anicteric sclerae Neck: normal visual inspection and trachea midline Respiratory: normal respiratory effort, lungs clear to auscultation Cardiovascular: Rate/Rhythm: regular rate and regular rhythm Gastrointestinal (Abdomen): Inspection/Auscultation: abdomen not distended Percussion/Palpation: abdomen soft; abdomen nontender Musculoskeletal: Head/Neck/Chest: normocephalic and head atraumatic Neg for peripheral LE edema, + pedal pulses Skin: Multiple abrasions as noted above Neurologic: awake; not confused Speech / Cognition: normal speech Psychiatric: Orientation: cooperative Pt answers questions, however answers do not make sense to what is being asked Not oriented Lymphatic: Exam as done by Selin Alex, Results & Data Results & Data ([facility]) Vital Signs (Past 12 Hours) Vital Signs Temp Pulse Pulse Resp BP BP Pulse Ox 04/24/20 12:46 100 H 24 140/128 H 04/24/20 12:40 97 H 21 97 04/24/20 12:32 99 H 8 L 97 04/24/20 12:30 166/96 H 98 04/24/20 12:29 172/105 H 97 04/24/20 12:01 101 H 29 H 95 04/24/20 11:59 101 H 29 H 132/78 96 04/24/20 11:50 102 H 32 H 04/24/20 11:46 103 H 31 H 94 04/24/20 11:25 105 H 30 H 177/85 H 95 04/24/20 11:23 36.5 C 104 H 28 H 177/85 H 97 04/24/20 11:10 36.5 C 105 H 28 H 177/85 H [address] ANGIOGRAPHY OF THE NECK WITH CONTRAST CLINICAL HISTORY: Stroke evaluation. Fall. COMPARISON STUDY: No previous studies for comparison. Technique: CT angiography of the carotid and vertebral arteries was obtained using [employer] 320 IV and 3D reconstruction on an independent workstation. NASCET criteria was utilized. Automated exposure control was utilized for the study. A dose lowering technique was utilized adhering to the principles of ALARA. Findings: Note is made of anterior and left neck subcutaneous infiltration and edema. No acute cervical spine fracture is noted. There is no cervical lymphadenopathy. Epiglottis is normal. There is moderate plaque within the bilateral cervical internal carotid arteries without significant stenosis. The bilateral vertebral arteries are patent. There is no dissection or aneurysm within the major vasculature of the neck. The CTA of the head will be reported separately. IMPRESSION: Moderate atherosclerotic plaque within the proximal bilateral internal carotid arteries without significant stenosis. CTA ANGIOGRAPHY OF THE HEAD CLINICAL HISTORY: Stroke evaluation. Fall. COMPARISON STUDY: No previous studies for comparison. TECHNIQUE: Helical axial images of the head were obtained following uneventful intravenous administration of 120 cc of Optiray 320. Sagittal and coronal reconstructions were viewed as well as maximal intensity projections on an independent 3-D workstation. Automated exposure control was utilized for the study. A dose lowering technique was utilized adhering to the principles of ALARA. FINDINGS: Please note that the head CT will be reported separately. No acute intracranial hemorrhage, midline shift or mass effect is present. Ventricular system is unremarkable. The basilar cisterns are patent. There are no extraaxial collections. There is moderate plaque within the bilateral cavernous carotids without significant stenosis. Major intracranial vessels are patent. There is no central vessel occlusion. There is no intraluminal thrombus. Posterior circulation is intact. No intracranial aneurysm is identified. IMPRESSION: Unremarkable CT of the head. Plaque within the bilateral cavernous carotids without stenosis. No central vessel occlusion. CT OF THE HEAD WITHOUT CONTRAST CLINICAL HISTORY: Stroke evaluation. Fall. COMPARISON STUDY: No previous studies for comparison. TECHNIQUE: Helical axial images of the head were obtained without IV contrast. Automated exposure control was utilized for the study. A dose lowering technique was utilized adhering to the principles of ALARA. FINDINGS: No acute intracranial hemorrhage, midline shift or mass effect is present. The ventricular system is unremarkable. The basal cisterns are patent. No extra-axial collections are present. There are no findings to suggest acute dural sinus thrombosis or acute territorial infarct. No significant calvarial abnormalities are present. Right maxillary sinus mucous retention cyst is no james.. Note is made of extensive left facial and scalp soft tissue swelling. IMPRESSION: 1. No acute intracranial findings. 2. Extensive left facial and scalp soft tissue swelling. This favors a contusion given history of fall. No calvarial fracture. CT OF THE CHEST WITH IV CONTRAST CLINICAL HISTORY: fall COMPARISON STUDY: Chest radiograph April 14, 2020. TECHNIQUE: Following IV administration of 94 mL of Optiray-320, helical axial images of the chest were obtained. Sagittal and coronal reconstructions were viewed as well as maximal intensity projections on an independent 3-D workstation. Automated exposure control was utilized for the study. A dose lowering technique was utilized adhering to the principles of ALARA. FINDINGS: Left neck and upper chest subcutaneous infiltration and edema is noted. There is no evidence for traumatic injury to the thoracic aorta. Note is made of moderate cardiomegaly with coronary artery calcification. No lymphaden opathy is present. No pneumothorax or pleural effusion is noted. Lingular opacity favors atelectasis. Note is made of acute nondisplaced fractures of the lateral left fourth and fifth ribs. There are are acute minimally distracted fractures of the lateral left sixth and seventh ribs. The abdomen and pelvis will be reported separately. No acute thoracic spine fracture is noted. IMPRESSION: 1. No evidence for traumatic injury to the thoracic aorta. 2. Acute nondisplaced fractures of the lateral left fourth and fifth ribs and acute minimally distracted fractures of the lateral left sixth and seventh ribs. No pneumothorax. CT OF THE CERVICAL SPINE WITHOUT CONTRAST CLINICAL HISTORY: fall COMPARISON STUDY: No previous studies for comparison. TECHNIQUE: Helical axial images of the cervical spine were obtained without IV contrast. Sagittal and coronal reconstructions were viewed. Automated exposure control was utilized for the study. A dose lowering technique was utilized adhering to the principles of ALARA. FINDINGS: Reversal of the normal cervical lordosis is noted. There is severe multilevel facet arthrosis and degenerative disc disease within the cervical spine. Central canal and neural foramen are suboptimally assessed by CT Anterior left neck subcutaneous infiltration is noted. This favors a contusion. IMPRESSION: 1. No acute cervical spine fracture or subluxation. 2. Severe multilevel degenerative changes within the cervical spine. 3. Anterior left neck subcutaneous infiltration which is nonspecific but favors a contusion given the history of fall. CT OF THE ABDOMEN AND PELVIS WITH CONTRAST CLINICAL HISTORY: fall COMPARISON STUDY: CT of the abdomen and pelvis December 28, 2019. TECHNIQUE: Following IV administration of 120 mL of Optiray-320, axial images of the abdomen and pelvis were obtained from the lung bases to the proximal femurs. Images were reviewed in the axial, sagittal, and coronal planes. IV contrast was administered without complication. Automated exposure control was utilized for the study. A dose lowering technique was utilized adhering to the principles of ALARA. CT DOSE: 2633.30 mGy.cm FINDINGS: Multiple acute left-sided rib fractures are noted on the chest CT. Please that report for further description. This exam is mildly compromised by motion artifact. There is probable hepatic steatosis. Several splenules are present. There is no evidence for traumatic injury to the liver, spleen, adrenal glands or kidneys. There are numerous bilateral renal cysts. Left adrenal nodules are unchanged to these are likely benign. There is no biliary or pancreatic ductal dilatation. There is no lymphadenopathy. Colonic diverticulosis is noted without evidence for acute diverticulitis. There is no evidence for a bowel obstruction. No acute lumbar spine or pelvic fracture is identified. IMPRESSION: 1. No acute traumatic findings within the abdomen or pelvis. 2. Multiple acute left rib fractures. Please see chest CT report for further description. ECG Additional Comments: 24-APR-2020 11:28:24 [facility]-EDSTAT ROUTINE RETRIEVAL Poor data quality, interpretation may be adversely affected Sinus tachycardia Otherwise normal ECG When compared with ECG of 24-DEC-2019 16:28, Vent. rate has increased BY 49 BPM 25mm/s 10mm/mV 150Hz 9.0.9 12SL 241 HD YOSELIN: 12 Referred by: REFERRED SELF Unconfirmed Vent. rate 108 BPM DE interval 152 ms QRS duration 82 ms QT/QTc 320/428 ms P-R-T axes 54 16 45 Code Status & VTE Plan Code Status DNR/DNI VTE: SCD's for now. VTE Prophylaxis Plan VTE Prophylaxis will be ordered: Yes Critical Care Time Prolonged Care Time Time spent reviewing images, labs, face to face with patient and family, consulting services, full primary and secondary assessment is greater than 120 minutes. Supervising Physician Co-Signing Physician Notes Pt seen and examined by me. Daughter present. Denies chest pain or SOB. Pt has not eaten since Saturday most likely. He is asking to eat. Daughter states that pt's med box was still with meds for Saturday night and all day Saturday. States it appears he took his Saturday afternoon meds. She states he is generally not confused and that he is not back to his usual. Agree with HPI/ROS as noted by PA See above for my exam in PE section Agree with plan as outlined above Fall, down since likely sometime Saturday afternoon/evening Now with rhabdo Cr WNL, CPK elevated Monitor with IVF PT/OT pending Mostly minor trauma, but does have L sided rib fractures WCC pending UTI, possibly lead to fall Monitor with ceftriaxone WBC elevated in the setting of UTI and trauma CT head neg for acute, MRI pending given facial droop and issues using L UE/LE Pt is on several medications that may have contributed to fall including trazdone, remeron, clonazapam All HS dosing, so likely did not take them during the day prior to fall unless he took them inappropriately due to confusion from UTI or CVA Will need to evaluate ongoing use PG Care Time/CCT Total # of Minutes Spent Total Time Spent with Patient: Total time spent is greater than 50% in coordina tion of care (as documented) at patient's floor/unit and/or counseling patient: Coding Level of Care Code 97661 Initial Inpt Care Lvl 3 Diagnoses CVA (cerebral vascular accident) I63.9 Fall W19.XXXA Encounter type: initial encounter Abrasion of face S00.81XA Encounter type: initial encounter Abrasion of elbow S50.319A Encounter type: initial encounter Laterality: unspecified laterality Abrasion of ankle S90.519A Encounter type: initial encounter Laterality: unspecified laterality Multiple fractures of ribs of left side S22.42XA Encounter type: initial encounter Fracture type: closed Pressure injury of left buttock, stage 2 L89.322 Rhabdomyolysis T79.6XXA Encounter type: initial encounter Rhabdomyolysis type: traumatic Acute UTI N39.0 Type 2 diabetes mellitus E11.9 HTN (hypertension) I10 Dyslipidemia E78.5 Gastroesophageal reflux disease K21.9 Depression F32.9 Prostate cancer C61 PMR (polymyalgia rheumatica) M35.3 (1) Multiple fractures of ribs of left side Encounter type: initial encounter Fracture type: closed Qualified Code(s): S22.42XA - Multiple fractures of ribs, left side, initial encounter for closed fracture (2) Rhabdomyolysis Encounter type: initial encounter Rhabdomyolysis type: traumatic Qualified Code(s): T79.6XXA - Traumatic ischemia of muscle, initial encounter (3) Abrasion of face Encounter type: initial encounter Qualified Code(s): S00.81XA - Abrasion of other part of head, initial encounter (4) Fall Encounter type: initial encounter Qualified Code(s): W19.XXXA - Unspecified fall, initial encounter (5) Abrasion of ankle Encounter type: initial encounter Laterality: unspecified laterality Qualified Code(s): S90.519A - Abrasion, unspecified ankle, initial encounter (6) Abrasion of elbow Encounter type: initial encounter Laterality: unspecified laterality Qualified Code(s): S50.319A - Abrasion of unspecified elbow, initial encounter
--- NOTE | 2020-04-24 13:42 | XRay Report ---
XR chest 1V portable CLINICAL HISTORY: fall COMPARISON STUDY: Chest radiograph and left rib series April 14, 2020. Chest CT performed earlier today. FINDINGS: There is no pneumothorax. Note is made of an acute mildly displaced lateral left sixth, sev enth and eighth rib fractures. The fourth and fifth rib fractures are better depicted on chest CT. Mi ld left basilar opacity favors atelectasis. There are old right rib fractures. Note is made of cardio megaly. IMPRESSION: 1. Acute mildly displaced lateral left sixth, seventh and eighth rib fractures. Nondisplaced left fou rth and fifth rib fracture s better depicted on chest CT. No pneumothorax. 2. Mild left basilar opacity which favors atelectasis. ACT 112: Negative or not required by law. Electronically signed by: George Luna M.D. 04/24/2020 1:41 PM
--- NOTE | 2020-04-24 13:43 | XRay Report ---
XR femur LT 2V routine CLINICAL HISTORY: fall COMPARISON: Left knee radiographs August 01, 2017. FINDINGS: Incidental note is made of contrast within the bladder from recent contrast-enhanced CT. N o acute fracture within the left femur is noted. No acute fracture within visualized portions of the left hemipelvis is noted. There is moderate vascular calcification. There is moderate to severe media l compartment osteoarthritis of the left knee. Small left knee joint effusion is suspected. There is mild left hip osteoarthritis. IMPRESSION: No acute fracture of the left femur. ACT 112: Negative or not required by law. Electronically signed by: George Luna M.D. 04/24/2020 1:42 PM
--- NOTE | 2020-04-24 13:44 | XRay Report ---
XR hand RT min 3V routine CLINICAL HISTORY: fall COMPARISON: None FINDINGS: Incidental note is made of a ring on the fourth finger. No acute fracture is identified. T here is fusion of the right first metacarpophalangeal joint. Severe osteoarthritis is noted within mu ltiple articulations of the right hand. Carpal bones appear intact. IMPRESSION: 1. No acute fracture or dislocation within the right hand. 2. Fusion of the right first metacarpophalangeal joint and severe osteoarthritis within multiple katheryn tional articulations of the right hand. ACT 112: Negative or not required by law. Electronically signed by: George Luna M.D. 04/24/2020 1:43 PM
--- NOTE | 2020-04-24 13:45 | XRay Report ---
XR ankle RT min 3V routine CLINICAL HISTORY: fall COMPARISON: None FINDINGS: Alignment of the right ankle is anatomic. There is no acute fracture. Talar dome is intact . There is minimal posterior calcaneal spurring. Moderate vascular calcification is noted. IMPRESSION: No acute fracture or dislocation within the right ankle. ACT 112: Negative or not required by law. Electronically signed by: George Luna M.D. 04/24/2020 1:44 PM
--- NOTE | 2020-04-24 13:45 | XRay Report ---
XR ankle LT min 3V routine CLINICAL HISTORY: fall COMPARISON: None FINDINGS: Alignment of the left ankle is anatomic. Talar dome is intact. There is no acute fracture. There is mild posterior calcaneal spurring. There is moderate vascular calcification. IMPRESSION: No acute fracture or dislocation within the left ankle. ACT 112: Negative or not required by law. Electronically signed by: George Luna M.D. 04/24/2020 1:44 PM
[2020-04-24] MEDS ORDERED: GLUCOSE 10 TABS/TUBE PO PRN (16:09)
[2020-04-24] MEDS ORDERED: ONDANSETRON INJ 2 MG/ML 2 ML VIAL IV PRN (16:09)
[2020-04-24] MEDS ORDERED: PHARMACY GLYCEMIC MGMT CONSULT PRN (16:09)
[2020-04-24] MEDS ORDERED: CARBOHYDRATES FOR HYPOGLYCEMIA PO PRN (16:09)
[2020-04-24] MEDS ORDERED: DEXTROSE 50% 50 ML SYRINGE IV PRN (16:09)
[2020-04-24] MEDS ORDERED: PHARMACIST DISCHARGE MED REC CONSULT PRN (16:09)
[2020-04-24] MEDS ORDERED: GLUCOSE 40% GEL 15 GM TUBE PO PRN (16:09)
[2020-04-24] MEDS ORDERED: GLUCAGON FOR INJ 1 MG VIAL SQ PRN (16:09)
[2020-04-24 17:43] LABS: BUN Creatinine Ratio 31.1 (10-20); Calcium 8.9 mg/dl (8.5-10.1); Creatinine Clr Calc Pharmacy 44.6 ml/min; Est GFR (African American) 66.4; Est GFR (Non-African American) 57.3; Potassium 4.4 mmol/L (3.5-5.1)
[2020-04-24] MEDS: LACTATED RINGER'S 1,000 ML IV SCH ×2 (18:01→23:03)
[2020-04-24] MEDS: LIDOCAINE 5% 1 PATCH TD SCH (18:02)
--- NOTE | 2020-04-24 18:03 | Magnetic Resonance Report ---
MRI OF THE BRAIN WITHOUT CONTRAST CLINICAL HISTORY: Possible CVA with Loss of consciousness COMPARISON STUDY: Head CT and CTA of the head performed earlier today. TECHNIQUE: Utilizing a 1.5 Anne magnet and dedicated coil, multiplanar, multiecho imaging of the bra in was performed without IV contrast. FINDINGS: There are no foci of restricted diffusion to suggest acute infarct. No acute intracranial h emorrhage, midline shift or mass effect is present. Ventricular system is unremarkable. Basilar ciste rns are patent. There are no extra axial collections. Flow-voids for the major intracranial vessels a re present. No intracranial masses identified on this unenhanced examination. Note is made of moderat e atrophy. Scattered white matter T2 hyperintense foci suggest mild small vessel disease. There is ex tensive left scalp edema. This also involves the left temporalis muscle. This extends into the upper neck. IMPRESSION: 1. No acute intracranial findings. 2. Extensive left scalp edema with involvement of the left temporalis muscle and extension into the u pper neck. This could be posttraumatic however an infectious etiology could appear similar. ACT 112: Negative or not required by law. Electronically signed by: George Luna M.D. 04/24/2020 6:02 PM
[2020-04-24] MEDS: INSULIN ASPART 100 UNITS/ML 3 ML PEN SC SCH ×2 (18:10→23:56)
[2020-04-24 18:15] LABS: Creatine Kinase MB 38.8 ng/ml (0.5-3.6)
--- NOTE | 2020-04-24 19:27 | Pharmacy Report ---
Glycemic Control Consultation - Date of Service April 24, 2020 - Scope Scope: Glycemic Pharmacist consulted for glycemic control and to write orders per [facility] inpatient glycemic control protocol. - Objective Weight: 78.8 kg Accuchecks BSG (last 24hrs): 04/24/20 04/24/20 04/24/20 11:51 12:02 16:26 Glucose POC Glucose 166 H 175 H POC Glucose (other) 178 H 04/24/20 04/24/20 16:55 Unknown Glucose 184 H 168 H POC Glucose POC Glucose (other) Laboratory Data (last 24hrs): 04/24/20 04/24/20 16:55 Unknown Potassium 4.4 4.2 Carbon Dioxide 26 28 Anion Gap 6.0 8.0 Creatinine 1.15 1.22 Est Cr Clr Drug Dosing 44.6 42.0 - Recent Pertinent Medications Outpatient Anti-diabetic Regimen: * Glimepiride 1mg * A1c = 6.6 % 04/18/20 The patient is currently receiving: * Correctional Insulin: Novolog Correction per scale q6h(pt currently NPO) Goal Range: Low 120 mg/dL - High 150 mg/dL Correction Factor: 30 mg/dL/unit * Prandial insulin: Per carb ratio of 1 unit per 10 grams CHO consumed - Assessment & Plan Assessment & Plan: ASSESSMENT: * Patient admitted after being found on floor of apt. Unsure of how long he was there. High concern for stroke. Patient appears to have left facial droop, left facial swelling, weakness of both left arm and left leg. PLAN FOR INPATIENT GLYCEMIC CONTROL: * Holding outpatient oral diabetes medications * Bolus insulin * NovoLog per scale ACHS or Q6hrs while NPO * Goal Range: Low 120 mg/dL - High 150 mg/dL * Correction Factor: 30 mg/dL/unit * Nutritional / Prandial insulin per carb ratio of 1 unit per 10 grams CHO consumed These recommendations are appropriate for inpatient admission only. Plan of care upon discharge will need to be reassessed to avoid potential outpatient hypo/hyperglycemia. Thank you.
[2020-04-24] MEDS: BACITRACIN OINT 15 GM TUBE EXT SCH (19:59)
[2020-04-24] MEDS ORDERED: NON-FORMULARY MEDICATION (Turmeric 400 mg Capsule) PO SCH (21:00)
[2020-04-24] MEDS ORDERED: NON-FORMULARY MEDICATION (Vit C,E-Zn-Coppr-Lutein-Zeaxan [Preservision Areds-2] 250-200-40 PO SCH (21:00)
[2020-04-24 23:03] LABS: Creatine Kinase MB 19.9 ng/ml (0.5-3.6)
[2020-04-25] MEDS: MoRPHine SULFATE 2 MG/ML CARP IV PRN (01:29)
[2020-04-25 04:45] LABS: Basophils # (auto) 0.01 K/uL (0-0.2); Basophils % (auto) 0.1 %; Hematocrit (blood only) 46.6 % (42-52); Hemoglobin 14.9 g/dL (14.0-18.0); Immature Granulocytes # (auto) 0.08 K/uL (0.00-0.02); Immature Granulocytes % (auto) 0.4 %; Lymphocytes # (auto) 1.04 K/uL (1.2-3.4); Lymphocytes % (auto) 5.5 %; Mean Corpuscular Hemoglobin 27.7 pg (25-34); Mean Corpuscular Volume 86.8 fL (80-100); Mean Platelet Volume 9.3 fL (7.4-10.4); Monocytes # (auto) 2.22 K/uL (0.11-0.59); Monocytes % (auto) 11.8 %; Neutrophils % (auto) 82.2 %; Platelet Count 344 K/uL (130-400); RDW Coefficient of Variation 15.5 % (11.5-14.5); RDW Standard Deviation 49.1 fL (36.4-46.3); Red Blood Count 5.37 M/uL (4.7-6.1); White Blood Count 18.75 K/uL (4.8-10.8)
[2020-04-25 04:56] LABS: INR 1.2 (0.9-1.1); Partial Thromboplastin Ratio 1.2; Partial Thromboplastin Time 34.1 Seconds (21.0-31.0); Prothrombin Time 12.9 Seconds (9.0-12.0)
[2020-04-25 05:17] LABS: Creatine Kinase MB 10.3 ng/ml (0.5-3.6); Magnesium 2.3 mg/dl (1.8-2.4); Phosphorus 3.3 mg/dl (2.5-4.9)
[2020-04-25] MEDS: INSULIN ASPART 100 UNITS/ML 3 ML PEN SC SCH ×4 (05:56→21:32)
[2020-04-25 06:48] LABS: Estimated Average Glucose 146 mg/dl; Hemoglobin A1C 6.7 % (4.5-5.6)
--- NOTE | 2020-04-25 09:06 | Neurology Consultation ---
Date of Consultation April 25, 2020 Assessment & Plan (1) Fall: Mr. Martin is an 84 year old man with PMH PMR, HTN, HLD, DMII, anxiety, depression, and insomnia who presented with a fall with prolonged time down and rhabdomyolysis. Neurology consulted secondary to facial droop and left upper extremity weakness. Left sided Facial Droop, Left arm weakness, and AMS MRI negative for any acute stroke, CTA head and neck with atherosclerosis but without stenosis Facial droop appears to be a complete peripheral CN VII palsy Swelling around origin of CN VII with tenderness to palpation and incomplete paralysis including upper face/forehead as well as lowerface. Left arm weakness is interesting in that he has strong extensor tone, but has weak detective precinct strength focal weakness on finger spreading (ulnar), thumb extension (median) and brachioradialis (radial) Though does have intact triceps and biceps flexion. 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 Patient does not have the pain or evidence of impaired circulation associated with compartment syndrome but does have evidence of compression of nerves, will need to monitor swelling and function closely. May benefit from SNF/Rehab moving forward pending PT/OT evaluation Spoke with daughter and hospitalist service about patient's care. Can continue ASA 81 mg daily and home simvastatin for primary prevention Would recommend trying to wean off some of his sedating bedtime medications as these could be contributing to his multiple falls recently. If patient has any acute deterioration can get repeat CT of head (2) Rhabdomyolysis: (3) Abrasion of face: (4) Abrasion of elbow: (5) Abrasion of ankle: (6) Pressure injury of left buttock, stage 2: (7) Fall: (8) Dyslipidemia: (9) Facial nerve palsy: (10) Left arm weakness: Supervising Physician Co-Signing Physician Notes this patient was seen and examined by me today. I agree with the history and physical examination noted by Dr. Pardo. He has a history of hypertension, type 2 diabetes, dyslipidemia, depression anxiety, insomnia, adjustment disorder, and prostate cancer. He apparently fell sometime between SaturdayApril 22 and April 24 when he was found by family members on the ground. He had altered mental status, language issues and left-sided face and limb weakness with swelling and signs of injury. in the ER he was noted to have head trauma and swelling on the left side of his face, swelling in his left arm and at the left hip. He has rib fractures on the left. CK was over 13,000. On history today he has no Pain in the chest with deep breathing and has no headache. He does have tenderness in left upper extremity particularly around the elbow, distal upper arm and proximal forearm. On neurologic examination he has a good memory, can read and comprehend sentences and words and explain in detail what is going on in the NIHSS picture. He has significant hearing loss but communicates very well with his hearing aids in. He has a significant dysarthria but I really can't detect any significant a facial. 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 He is tender to palpation under the ear the exit point of the 7th nerve to the face. He has weakness in the left upper extremity involving muscles in the radial, median, and ulnar nerves. He has reasonable left leg strength although there is tenderness at the left hip. I agree with the impression and plan of Dr. Pardo. The patient has a left peripheral 7th weakness likely from swelling/compression injury to the exit point of the 7th cranial nerve under the ear on the left. His left upper extremity weakness is likely peripheral. MRI of the brain did not show a stroke and I believe he has swelling and compression of multiple nerve in the upper forearm. he has no upper motor neuron signs. His altered mental status could have been a combination of concussion, encephalopathy from a urinary tract infection, and/or dehydration with rhabdomyolysis and acute renal injury. Fortunately he is improved today. Recommend continuing aspirin 81 milligrams daily and speech, occupational, and physical therapy. Increase activity as able and he may be a good rehabilitation hospital candidate. Agree with trying to wean off any sedative medication. History of Present Illness Reason for Consultation: Concern for CVA Requesting Physician: Selin Alex DO Attending Physician: Selin Alex DO History of Present Illness Regino Martin is an 84 year old man with a past medical history significant for prostate cancer, DMII, HTN, HLD, Insomnia, anxiety/depression and adjustment disorder without history of prior CVA or [place] per daughter who presented to [facility] ED after a fall and being down on ground for unknown period of time, last known well and last time taking his medications Saturday evening, found on Saturday. He initially was very altered and unable to answer questions, also with left sided facial droop and upper extremity weakness. Patient's labwork on admission significant for elevated white count of 24, JEREMY with BUN of 34 and creatinine of 1.22 up from baseline around 9, CK elevated at 13,785, AST and ALT both elevated at 401 and 129 respectively. trop detectable but negative, urinalysis concerning for rhabdomyolysis and acute UTI. Imaging obtained on admission significant for chest CT showing non displaced fractures of left 4th and 5th rib and minimally displaced fractures of left 6th and 7th rib. Head CT negative for bleeding, CTA head and neck showing atherosclerotic plaque in b/l cavernous sinus and proximal internal carotid arteries w/o stenosis. Brain MRI is negative. Patient was admitted to telemetry aggressively rehydrated and started on ASA 324 for possible CVA (as well as continuing his home simvastatin) and ceftriaxone for his UTI. This AM patient appears to be doing much better overall and his cognition seems to be improved to baseline though he is somewhat confused by his pisano catheter and his hearing aids are not functioning properly for him so all interaction is difficult. He is still able to answer all of my questions clearly and appropriately and knows what happened and why he is here. He does not remember when he fell or how long he was down and his memory begins only after being seen by medical personnel. He does not endorse any abnormalities from his baseline at present, feels his vision is normal and denies any pain at present. Allergies Allergy/AdvReac Type Severity Reaction Status Date / Time Penicillins Allergy Unknown UNKNOWN Verified 04/24/20 12:58 celecoxib [From Celebrex] Allergy Verified 04/24/20 12:58 suvorexant [From Belsomra] Allergy Verified 04/24/20 12:58 temazepam Allergy Verified 04/24/20 12:58 venlafaxine [From Effexor] Allergy Verified 04/24/20 12:58 Home Medications Home Medications Medication Instructions Recorded Confirmed Type multivitamin 1 tab PO QDL 02/03/19 04/24/20 History pantoprazole 40 mg tablet,delayed 40 mg PO QAM tab 02/03/19 04/24/20 History release simvastatin 20 mg tablet 20 mg PO QAM #90 tab 08/20/19 04/24/20 Rx cholecalciferol (vitamin D3) 25 25 mcg PO QAM 12/14/19 04/24/20 History mcg (1,000 unit) capsule vit C,Q-Ut-oyqos-lutein-zeaxan 1 tab PO BID 12/28/19 04/24/20 History [PreserVision AREDS-2] glimepiride 1 mg tablet 1 mg PO QAM #90 tab 01/18/20 04/24/20 Rx losartan 100 mg tablet 100 mg PO QAM #90 tab 04/08/20 04/24/20 Rx amlodipine 5 mg PO QDL 04/14/20 04/24/20 History fesoterodine [Toviaz] 4 mg PO PM 04/14/20 04/24/20 History ibuprofen 600 mg PO Q6H PRN 04/14/20 04/24/20 History mirtazapine 15 mg PO HS 04/14/20 04/24/20 History turmeric 1,500 mg PO PM 04/14/20 04/24/20 History clonazepam 1 mg tablet 1 mg PO HS #30 tab 04/18/20 04/24/20 Rx diclofenac sodium 1 % topical gel 4 g TOPICAL QID #100 g 04/18/20 04/24/20 Rx trazodone 50 mg tablet 100 mg PO HS #60 tab 04/18/20 04/24/20 Rx Patient History Medical History (Updated 04/25/20 @ 10:02 by Best Pardo MD) Depression Dyslipidemia Esophagitis Gastroesophageal reflux disease Hearing loss Helicobacter positive gastritis HTN (hypertension) Insomnia Irritable bowel syndrome Malignant neoplasm of prostate (~2010) Mild obstructive sleep apnea Osteoarthritis PMR (polymyalgia rheumatica) Prostate cancer Type 2 diabetes mellitus Vitamin D deficiency Surgical History History of cataract surgery History of colonoscopy History of excision of lesion trunk x 2 History of knee surgery Family History Mother Cancer Hypertension Other Family history non-contributory Denies family history of Clotting disorder Social History Smoking Status: Former smoker packs per day: 1; Years Smoked: 40; Second Hand Exposure: No; Do You Dip or Chew Tobacco: No; Tobacco Cessation Education Requested by Patient: No Hx Alcohol Use: No Hx Substance Use: No Preferred Language: Thai Communication Ability: Effective Visual Impairment: No Limitations Hearing Ability: Use of Hearing Aid Transmitter Engineer Required: No Beliefs That Will Affect Care: None marital status: Current Living Situation: Alone current occupational status: retired Other Information That Helps Us Care for You: No Feels Safe at Home: Yes Safety Concerns: Feels Safe At This Time Childhood Exposure to Second-Hand Smoke: Yes caffeine: Yes Dental Care, Regularly: Yes Physical Activity Frequency: Does not Exercise Seatbelt Use: always Sunscreen Use: No Assistive Devices: Glasses and Hearing Aid - Bilateral Review of Systems Review of Systems: All systems reviewed & are unremarkable except as noted in HPI & below Physical Exam Constitutional: well developed and well nourished; no acute distress Dry mucous membranes Eyes: PERRL, conjunctivae normal, anicteric sclerae Respiratory: normal respiratory effort, lungs clear to auscultation Cardiovascular: Rate/Rhythm: regular rate and regular rhythm; not irregularly irregular Heart Sounds: normal S1 and normal S2 Extremities: no calf te nderness and no edema Gastrointestinal (Abdomen): normal bowel sounds, soft, nontender, no hepatosplenomegaly Skin: Abrasion with bruising and swelling to left side of face. Neurologic: normal touch/pain/proprioception (inconsistent responses including answers without touch), plantar reflexes intact bilaterally, moves all extremities, + focal motor deficit (left upper extremity ) and awake; + CN's not intact (All intact except CN VII palsy, appears peripheral), + abnormal deep tendon reflexes (Minimal relexes globally) and not confused Speech / Cognition: + abnormal speech (dysarthria); no expressive aphasia, no receptive aphasia and normal cognition Motor/Sensory: no tremor and no pronator drift Cranial Nerves: sense of smell intact, PERRL, normal accommodation, EOM intact bilaterally, tongue midline, normal hearing, able to rotate head bilaterally, able to elevate shoulders bilaterally, no nystagmus and symmetric palate elevation; + abnormal facial strength (complete VII nerve palsy) Coordination: normal mtksur-yi-bolx test and normal ljiv-bd-zowo test Psychiatric: A+Ox3, euthymic affect Results & Data ([facility]) Vital Signs (Past 12 Hours) Vital Signs Temp Pulse Pulse Resp BP BP Pulse Ox 04/25/20 07:30 36.6 C 82 28 H 139/76 95 04/25/20 01:23 37.4 C 100 H 26 H 154/80 H 93 04/24/20 23:42 93 H Resident Activity Tracking Resident Involvement: Resident Care Provided Care Provided: Adult [facility] Medicine (1) Rhabdomyolysis Encounter type: initial encounter Rhabdomyolysis type: traumatic Qualified Code(s): T79.6XXA - Traumatic ischemia of muscle, initial encounter (2) Abrasion of face Encounter type: initial encounter Qualified Code(s): S00.81XA - Abrasion of other part of head, initial encounter (3) Fall Encounter type: initial encounter Qualified Code(s): W19.XXXA - Unspecified fall, initial encounter (4) Fall Encounter type: initial encounter Qualified Code(s): W19.XXXA - Unspecified fall, initial encounter (5) Abrasion of ankle Encounter type: initial encounter Laterality: unspecified laterality Qualified Code(s): S90.519A - Abrasion, unspecified ankle, initial encounter (6) Abrasion of elbow Encounter type: initial encounter Laterality: unspecified laterality Qualified Code(s): S50.319A - Abrasion of unspecified elbow, initial encounter
--- NOTE | 2020-04-25 09:58 | Electrocardiogram Report ---
Test Reason : Blood Pressure : / mmHG Vent. Rate : 108 BPM Atrial Rate : 108 BPM P-R Int : 152 ms QRS Dur : 082 ms QT Int : 320 ms P-R-T Axes : 054 016 045 degrees QTc Int : 428 ms Poor data quality, interpretation may be adversely affected Sinus tachycardia Otherwise normal ECG When compared with ECG of 24-DEC-2019 16:28, Vent. rate has increased BY 49 BPM Confirmed by Randy Luis ([id number]) on 04/25/2020 9:58:43 AM Referred By: REFERRED SELF Confirmed By:Randy Luis
[2020-04-25] MEDS: LIDOCAINE 5% 1 PATCH TD SCH (10:23)
[2020-04-25] MEDS: CHOLECALCIFEROL 1,000 UNITS 25 MCG TAB PO SCH (10:57)
[2020-04-25] MEDS: BACITRACIN OINT 15 GM TUBE EXT SCH ×2 (10:57→21:33)
[2020-04-25] MEDS: PANTOprazole 40 MG TAB PO SCH (10:57)
[2020-04-25] MEDS: SIMVASTATIN 20 MG TAB PO SCH (10:57)
[2020-04-25] MEDS: ASPIRIN 81 MG CHEW PO SCH (10:57)
--- NOTE | 2020-04-25 11:15 | XCELERA ---
[id number] \\[id number]
[2020-04-25] MEDS: amLODIPine BESYLATE 5 MG TAB PO SCH (12:40)
[2020-04-25] MEDS: MULTIVITAMIN TAB PO SCH (12:40)
--- NOTE | 2020-04-25 13:15 | Hospitalist Progress Note ---
Date of Service April 25, 2020 Assessment & Plan (1) Altered mental status: Concern for CVA on admission, patient last known well on Saturday04/22/2020 at 0900 in the morning, outside therapeutic window. CTA of head and CTA of neck performed. MRI neg for acute - Neurological exams per protocol GCS 14 - ASA to be started with bleeding ruled out - Continue home statin therapy Lipid panel WNL - Neurology feels likely peripheral 7th nerve palsy and compression injury of L distal forearm, both resulting from lying on ground in same position for prolonged period of time t/c possible concussion/post-concussive syndrome - PT recs for rehab, OT pending ST pending - Will continue Amlodipine for now, will hold all other blood pressure and sedating medications. Stable for transfer off tele (2) Fall: - Admit to med Surg - PT/OT consults - CM to assist with dc planning for rehab as pt fell at the end of March as noted in PCP note - Supportive therapy with pain medication, IVF - Fall precautions - Patient unable to recall any events leading up to fall - Home safety evaluation and case management for placement evaluation following admission. (3) Abrasion of face: WCC pending (4) Abrasion of elbow: (5) Abrasion of ankle: (6) Multiple fractures of ribs of left side: - Left 4,5,6,7 acute fracture - Incentive spirometry, flutter, pulmonary toilet, pain control - bacitracin ointment to abrased areas (7) Pressure injury of left buttock, stage 2: - Wound consult, sustained s/p fall onto the ground (8) Rhabdomyolysis: - CK of 13,785 on admission, aggressive hydration guided by urine output. Will replace with LR, patient is high risk. Urine PH 5.5 - Laid on the floor since fall which occured on Saturday, (>48hrs minimum) - No acute kidney issues on admission with cr still WNL Lauren catheter to guide resuscitation CK improving, continue IVF (9) Acute UTI: - UA appears grossly infected, cx pending - Continue ceftriaxone (10) Type 2 diabetes mellitus: - A1C = 6.6 from 04/18/20 - ISS with accuchecks achs - Hold glimepiride (11) HTN (hypertension): - HOLD losartan and cont amlodipine for now, BP stable, follow BMP to ensure no JEREMY. (12) Dyslipidemia: - Cont simvastatin - Lipids WNL - Adjust therapy if needed (13) Gastroesophageal reflux disease: - Cont pantoprazole (14) Depression: - HOLD trazodone 100 mg HS, mirtazapine 15 mg HS, clonazepam 1 mg HS These medications will need adjusted Likely not the entire cause of pt's current status, but may have contributed to previous falls (15) Prostate cancer: No acute needs. Lauren catheter will be placed. (16) PMR (polymyalgia rheumatica): - Hx of such DVT ppx: SCD's CODE: DNR/DNI Dispo: From home, PT/OT, CM to assist with dc planning Admission and Anticipated Discharge Date Admission Date: April 24, 2020 Subjective Pt feels much better today. He has no memory of the events of Saturday other than remembering he wanted to watch the TVDeck on Saturday. He does still feel weak in his L side. He is hungry and awaiting ST eval. Pt denies fever, SOB, chest pain, abd pain, n/v/c/d, LE pain or swelling. He states that he does remember increased urination last week, especially at night, but no burning or incontinence prior to Saturday. Does note some pain to his low back today. Does state that he has multiple falls recently. Daughter is not present during discussion. Review of Systems Review of Systems: Pertinent positives and negatives reviewed in HPI--all others negative Physical Exam Constitutional: WD/WN, vitals as above Eyes: normal visual garcía by confrontation and + anicteric sclerae Neck: normal visual inspection and trachea midline Respiratory: normal respiratory effort, lungs clear to auscultation Cardiovascular: Rate/Rhythm: regular rate and regular rhythm Gastrointestinal (Abdomen): Inspection/Auscultation: abdomen not distended Percussion/Palpation: abdomen soft; abdomen nontender Musculoskeletal: Head/Neck/Chest: normocephalic and head atraumatic Skin: Multiple areas of abrasion noted Neurologic: awake; not confused Speech / Cognition: + abnormal speech (still slightly slurred, but much better. Answers are c/w questions asked) Psychiatric: Orientation: oriented x 3 and cooperative Results & Data Results & Data ([facility]) Vital Signs (Past 12 Hours) Vital Signs Temp Pulse Pulse Resp BP BP Pulse Ox 11/09/20 11:40 36.8 C 91 H 19 140/76 92 04/25/20 07:45 92 H 04/25/20 07:30 36.6 C 82 28 H 139/76 95 04/25/20 01:23 37.4 C 100 H 26 H 154/80 H 93 PG Care Time/CCT Total # of Minutes Spent Total Time Spent with Patient: Total time spent is greater than 50% in coordination of care (as documented) at patient's floor/unit and/or counseling patient: Coding Level of Care Code 56509 Subseq Hosp Care Lvl 3 Diagnoses Altered mental status R41.82 Fall W19.XXXA Encounter type: initial encounter Abrasion of face S00.81XA Encounter type: initial encounter Abrasion of elbow S50.319A Encounter type: initial encounter Laterality: unspecified laterality Abrasion of ankle S90.519A Encounter type: initial encounter Laterality: unspecified laterality Multiple fractures of ribs of left side S22.42XA Encounter type: initial encounter Fracture type: closed Pressure injury of left buttock, stage 2 L89.322 Rhabdomyolysis T79.6XXA Encounter type: initial encounter Rhabdomyolysis type: traumatic Acute UTI N39.0 Type 2 diabetes mellitus E11.9 HTN (hypertension) I10 Dyslipidemia E78.5 Gastroesophageal reflux disease K21.9 Depression F32.9 Prostate cancer C61 PMR (polymyalgia rheumatica) M35.3 (1) Multiple fractures of ribs of left side Encounter type: initial encounter Fracture type: closed Qualified Code(s): S22.42XA - Multiple fractures of ribs, left side, initial encounter for closed fracture (2) Rhabdomyolysis Encounter type: initial encounter Rhabdomyolysis type: traumatic Qualified Code(s): T79.6XXA - Traumatic ischemia of muscle, initial encounter (3) Abrasion of face Encounter type: initial encounter Qualified Code(s): S00.81XA - Abrasion of other part of head, initial encounter (4) Fall Encounter type: initial encounter Qualified Code(s): W19.XXXA - Unspecified fall, initial encounter (5) Abrasion of ankle Encounter type: initial encounter Laterality: unspecified laterality Qualified Code(s): S90.519A - Abrasion, unspecified ankle, initial encounter (6) Abrasion of elbow Encounter type: initial encounter Laterality: unspecified laterality Qualified Code(s): S50.319A - Abrasion of unspecified elbow, initial encounter
--- NOTE | 2020-04-25 13:22 | Pharmacy Report ---
Pharmacy Glycemic Short Note 2 - Date of Service April 25, 2020 - Glycemic Short BSG Results (Last 24 hours): 04/24/20 04/24/20 04/24/20 16:26 16:55 20:07 Glucose 184 H POC Glucose 175 H 164 H 04/25/20 04/25/20 05:53 12:51 Glucose POC Glucose 153 H 218 H ASSESSMENT: * Patient admitted after being found on floor of apt. Unsure of how long he was there. High concern for stroke. Patient appears to have left facial droop, le ft facial swelling, weakness of both left arm and left leg. 04/25: * Patient remains NPO, continues on rocephin for UTI * BSGs stable this AM - 153 mg/dL, lunch time BSG trending up to 218 mg/dL / unc lear reasoning. Plan to add small Lantus scale for HS if BSGs remain elevated PLAN FOR INPATIENT GLYCEMIC CONTROL: * Holding outpatient oral diabetes medications * Basal - 0-8 units HS depending on BSG value * Bolus insulin * NovoLog per scale ACHS or Q6hrs while NPO * Goal Range: Low 120 mg/dL - High 150 mg/dL * Correction Factor: 30 mg/dL/unit * Nutritional / Prandial insulin per carb ratio of 1 unit per 10 grams CHO consumed
[2020-04-25] MEDS: cefTRIAXone SODIUM 2,000 MG in DEXTROSE 5% 50 ML IV SCH (14:13)
[2020-04-25] MEDS ORDERED: Nursing to Pharmacy Communication SCH (15:30)
[2020-04-25] MEDS: LANTUS PER UNIT CHARGE SQ SCH (21:33)
[2020-04-26 07:22] LABS: Basophils # (auto) 0.01 K/uL (0-0.2); Basophils % (auto) 0.1 %; Eosinophils # (auto) 0.03 K/uL (0-0.5); Eosinophils % (auto) 0.2 %; Hemoglobin 14.2 g/dL (14.0-18.0); Immature Granulocytes # (auto) 0.07 K/uL (0.00-0.02); Immature Granulocytes % (auto) 0.4 %; Lymphocytes # (auto) 1.57 K/uL (1.2-3.4); Lymphocytes % (auto) 8.3 %; Mean Corpuscular Hemoglobin 27.7 pg (25-34); Mean Corpuscular Hgb Conc 32.3 g/dL (32-36); Mean Corpuscular Volume 85.8 fL (80-100); Mean Platelet Volume 9.3 fL (7.4-10.4); Monocytes # (auto) 1.48 K/uL (0.11-0.59); Monocytes % (auto) 7.8 %; Neutrophils % (auto) 83.2 %; Platelet Count 313 K/uL (130-400); RDW Coefficient of Variation 15.2 % (11.5-14.5); RDW Standard Deviation 48.5 fL (36.4-46.3); Red Blood Count 5.13 M/uL (4.7-6.1); White Blood Count 18.96 K/uL (4.8-10.8)
[2020-04-26 07:37] LABS: INR 1.2 (0.9-1.1); Partial Thromboplastin Ratio 1.2; Partial Thromboplastin Time 32.1 Seconds (21.0-31.0); Prothrombin Time 12.6 Seconds (9.0-12.0)
[2020-04-26] MEDS: INSULIN ASPART 100 UNITS/ML 3 ML PEN SC SCH ×4 (08:23→21:50)
[2020-04-26] MEDS: BACITRACIN OINT 15 GM TUBE EXT SCH ×2 (08:28→21:47)
[2020-04-26] MEDS: PANTOprazole 40 MG TAB PO SCH (08:28)
[2020-04-26] MEDS: CHOLECALCIFEROL 1,000 UNITS 25 MCG TAB PO SCH (08:28)
[2020-04-26] MEDS: SIMVASTATIN 20 MG TAB PO SCH (08:28)
[2020-04-26] MEDS: LIDOCAINE 5% 1 PATCH TD SCH (08:28)
[2020-04-26] MEDS: ASPIRIN 81 MG CHEW PO SCH (08:29)
[2020-04-26] MEDS ORDERED: LANTUS PER UNIT CHARGE SQ SCH (09:00)
--- NOTE | 2020-04-26 10:21 | Neurology Progress Note ---
Date of Service April 26, 2020 Assessment & Plan (1) Left arm weakness: (2) Facial nerve palsy: (3) Rhabdomyolysis: The patient has a left peripheral 7th weakness likely from swelling/compression injury to the exit point of the 7th cranial nerve under the ear on the left. He is a little more movement at the corner of the mouth today compared to yesterday. His left upper extremity weakness is likely peripheral. MRI of the brain did not show a stroke and I believe he has swelling and compression of multiple nerve in the upper forearm. he has no upper motor neuron signs. Examination today reveals a little better range of motion at the elbow and less tenderness with some movement of his fingers a little better than yesterday. His altered mental status could have been a combination of concussion, encephalopathy from a urinary tract infection, and/or dehydration with rhabd omyolysis and acute renal injury. Mental status was improved and stable yesterday and today. Recommendations: 1. continuing aspirin 81 milligrams daily s 2. speech, occupational, and physical therapy. 3. Increase activity as able and he may be a good rehabilitation hospital candidate. 4. Agree with trying to wean off any sedative medication. Overall, I spent a total of 25 minutes with this case including review of records, direct evaluation the patient at bedside, and discussing the case with the patient at bedside. Admission and Anticipated Discharge Date Admission Date: April 24, 2020 Subjective patient is stable and feels a little less pain in the left upper extremity and face. He has no new issues overnight according to nursing. Results & Data ([facility]) Vital Signs (Past 12 Hours) Vital Signs Temp Pulse Pulse Resp BP Pulse Ox 04/26/20 07:48 37.1 C 83 19 148/74 H 95 04/26/20 07:20 86 04/26/20 04:04 36.7 C 81 18 149/86 H 96 04/26/20 01:25 83 Exam (Neuro) Physical Exam: He is awake and alert. He cannot move the forehead on the left but the right is normal. He is moving the corner of the mouth on the left a little better than he was yesterday but not as well as the right. He is considerable swelling in the left face and side of the head as he did before. He still has some swelling in his proximal forearm, distal upper arm on the left but he is less tender. He can wiggle his fingers better but cannot photograph finisher still as per yesterday motor strength is weak in the left upper extremity as per yesterday. PG Care Time/CCT Total # of Minutes Spent Total Time Spent with Patient: Total time spent is greater than 50% in coordination of care (as documented) at patient's floor/unit and/or counseling patient: Coding Level of Care Code 08009 Subseq Hosp Care Lvl 2 Diagnoses Left arm weakness R29.898 Facial nerve palsy G51.0 Rhabdomyolysis T79.6XXA Encounter type: initial encounter Rhabdomyolysis type: traumatic Time Spent (min) 25 (1) Rhabdomyolysis Encounter type: initial encounter Rhabdomyolysis type: traumatic Qualified Code(s): T79.6XXA - Traumatic ischemia of muscle, initial encounter
[2020-04-26] MEDS: MULTIVITAMIN TAB PO SCH (12:20)
[2020-04-26] MEDS: amLODIPine BESYLATE 5 MG TAB PO SCH (12:20)
[2020-04-26] MEDS: cefTRIAXone SODIUM 2,000 MG in DEXTROSE 5% 50 ML IV SCH (13:24)
[2020-04-26] MEDS ORDERED: CARBAMIDE PEROXIDE 6.5% 15 ML BTL OT ONE (15:30)
[2020-04-26] MEDS ORDERED: INSULIN GLARGINE SOLOSTAR 100 UNITS/ML 3 ML PEN SC SCH (21:00)
--- NOTE | 2020-04-26 22:20 | Hospitalist Progress Note ---
Date of Service April 26, 2020 Assessment & Plan (1) Altered mental status: Concern for CVA on admission, patient last known well on Saturday04/22/2020 at 0900 in the morning, outside therapeutic window. CTA of head and CTA of neck performed. MRI neg for acute stroke. -Essentially stroke has been ruled out. - ASA to be started with bleeding ruled out - Continue home statin therapy Lipid panel WNL - Neurology feels likely peripheral 7th nerve palsy and compression injury of L distal forearm, both resulting from lying on ground in same position for prolonged period of time t/c possible concussion/post-concussive syndrome - will likely need placement. - Will continue Amlodipine for now, will hold all other blood pressure and sedating medications. (2) Fall: - Admit to med Surg - PT/OT consults - CM to assist with dc planning for rehab as pt fell at the end of March as noted in PCP note - Supportive therapy with pain medication, IVF - Fall precautions - Patient unable to recall any events leading up to fall - Home safety evaluation and case management for placement evaluation following admission. (3) Abrasion of face: [facility] (4) Abrasion of elbow: (5) Abrasion of ankle: (6) Multiple fractures of ribs of left side: - Left 4,5,6,7 acute fracture - Incentive spirometry, flutter, pulmonary toilet, pain control - bacitracin ointment to abrased areas (7) Pressure injury of left buttock, stage 2: - Wound consult, sustained s/p fall onto the ground (8) Rhabdomyolysis: - CK of 13,785 on admission, aggressive hydration guided by urine output. Will replace with LR, patient is high risk. Urine PH 5.5 - Laid on the floor since fall which occured on Saturday, (>48hrs minimum) - No acute kidney issues on admission with cr still WNL Lauren catheter to guide resuscitation CK improving, continue IVF (9) Acute UTI: - UA appears grossly infected, cx pending - Continue ceftriaxone (10) Type 2 diabetes mellitus: - A1C = 6.6 from 04/18/20 - ISS with accuchecks achs - Hold glimepiride (11) HTN (hypertension): - HOLD losartan and cont amlodipine for now, BP stable, follow BMP to ensure no JEREMY. (12) Dyslipidemia: - Cont simvastatin - Lipids WNL - Adjust therapy if needed (13) Gastroesophageal reflux disease: - Cont pantoprazole (14) Depression: - HOLD trazodone 100 mg HS, mirtazapine 15 mg HS, clonazepam 1 mg HS These medications will need adjusted Likely not the entire cause of pt's current status, but may have contributed to previous falls (15) Prostate cancer: No acute needs. Lauren catheter will be placed. (16) PMR (polymyalgia rheumatica): - Hx of such DVT ppx: SCD's CODE: DNR/DNI Admission and Anticipated Discharge Date Admission Date: April 24, 2020 Subjective Patient reports more movement in his left hand today. Review of Systems Review of Systems: All systems reviewed & are unremarkable except as noted in HPI & below Physical Exam 2 Physical Exam: Constitutional: WD/WN, vitals as above Eyes: normal visual garcía by confrontation and + anicteric sclerae Neck: normal visual inspection and trachea midline Respiratory: normal respiratory effort, lungs clear to auscultation Cardiovascular: Rate/Rhythm: regular rate and regular rhythm Gastrointestinal (Abdomen): Inspection/Auscultation: abdomen not distended Percussion/Palpation: abdomen soft; abdomen nontender Musculoskeletal: Head/Neck/Chest: normocephalic and head atraumatic Skin: Multiple areas of abrasion noted Neurologic: awake; not confused Speech / Cognition: + abnormal speech (mumbles, Answers are c/w questions asked) Psychiatric: Orientation: oriented x 3 and cooperative Results & Data Results & Data ([facility]) Vital Signs (Past 12 Hours) Vital Signs Temp Pulse Pulse Resp BP Pulse Ox 04/26/20 19:25 36.8 C 88 17 149/74 H 92 04/26/20 15:37 87 04/26/20 15:36 36.8 C 85 27 H 142/71 H 93 04/26/20 11:25 36.7 C 86 19 128/71 97 PG Care Time/CCT Total # of Minutes Spent Total Time Spent with Patient: Total time spent is greater than 50% in coordination of care (as documented) at patient's floor/unit and/or counseling patient: Coding Level of Care Code 59766 Subseq Hosp Care Lvl 3 Diagnoses Altered mental status R41.82 Fall W19.XXXA Encounter type: initial encounter Abrasion of face S00.81XA Encounter type: initial encounter Abrasion of elbow S50.319A Encounter type: initial encounter Laterality: unspecified laterality Abrasion of ankle S90.519A Encounter type: initial encounter Laterality: unspecified laterality Multiple fractures of ribs of left side S22.42XA Encounter type: initial encounter Fracture type: closed Pressure injury of left buttock, stage 2 L89.322 Rhabdomyolysis T79.6XXA Encounter type: initial encounter Rhabdomyolysis type: traumatic Acute UTI N39.0 Type 2 diabetes mellitus E11.9 HTN (hypertension) I10 Dyslipidemia E78.5 Gastroesophageal reflux disease K21.9 Depression F32.9 Prostate cancer C61 PMR (polymyalgia rheumatica) M35.3 Time Spent (min) 35 (1) Multiple fractures of ribs of left side Encounter type: initial encounter Fracture type: closed Qualified Code(s): S22.42XA - Multiple fractures of ribs, left side, initial encounter for closed fracture (2) Rhabdomyolysis Encounter type: initial encounter Rhabdomyolysis type: traumatic Qualified Code(s): T79.6XXA - Traumatic ischemia of muscle, initial encounter (3) Abrasion of face Encounter type: initial encounter Qualified Code(s): S00.81XA - Abrasion of other part of head, initial encounter (4) Fall Encounter type: initial encounter Qualified Code(s): W19.XXXA - Unspecified fall, initial encounter (5) Abrasion of ankle Encounter type: initial encounter Laterality: unspecified laterality Qualified Code(s): S90.519A - Abrasion, unspecified ankle, initial encounter (6) Abrasion of elbow Encounter type: initial encounter Laterality: unspecified laterality Qualified Code(s): S50.319A - Abrasion of unspecified elbow, initial encounter
[2020-04-27] MEDS: LANTUS PER UNIT CHARGE SQ SCH (05:18)
[2020-04-27 06:53] LABS: Basophils # (auto) 0.01 K/uL (0-0.2); Basophils % (auto) 0.1 %; Eosinophils # (auto) 0.06 K/uL (0-0.5); Eosinophils % (auto) 0.3 %; Hematocrit (blood only) 42.8 % (42-52); Hemoglobin 13.9 g/dL (14.0-18.0); Immature Granulocytes # (auto) 0.12 K/uL (0.00-0.02); Immature Granulocytes % (auto) 0.7 %; Lymphocytes # (auto) 1.25 K/uL (1.2-3.4); Lymphocytes % (auto) 7.1 %; Mean Corpuscular Hemoglobin 27.6 pg (25-34); Mean Corpuscular Hgb Conc 32.5 g/dL (32-36); Mean Corpuscular Volume 84.9 fL (80-100); Mean Platelet Volume 9.7 fL (7.4-10.4); Monocytes # (auto) 1.39 K/uL (0.11-0.59); Monocytes % (auto) 7.9 %; Neutrophils # (auto) 14.84 K/uL (1.4-6.5); Neutrophils % (auto) 83.9 %; Platelet Count 318 K/uL (130-400); RDW Coefficient of Variation 14.7 % (11.5-14.5); RDW Standard Deviation 45.6 fL (36.4-46.3); Red Blood Count 5.04 M/uL (4.7-6.1); White Blood Count 17.67 K/uL (4.8-10.8)
[2020-04-27] MEDS: INSULIN ASPART 100 UNITS/ML 3 ML PEN SC SCH ×4 (08:23→21:20)
[2020-04-27] MEDS: BACITRACIN OINT 15 GM TUBE EXT SCH ×2 (08:24→21:17)
[2020-04-27] MEDS: ASPIRIN 81 MG CHEW PO SCH (08:25)
[2020-04-27] MEDS: LIDOCAINE 5% 1 PATCH TD SCH (08:25)
[2020-04-27] MEDS: PANTOprazole 40 MG TAB PO SCH (08:25)
[2020-04-27] MEDS: INSULIN GLARGINE SOLOSTAR 100 UNITS/ML 3 ML PEN SC SCH ×2 (08:26→21:19)
[2020-04-27] MEDS: SIMVASTATIN 20 MG TAB PO SCH (08:26)
[2020-04-27] MEDS: CHOLECALCIFEROL 1,000 UNITS 25 MCG TAB PO SCH (08:26)
[2020-04-27] MEDS ORDERED: clonazePAM 0.25 MG TAB PO STA (08:33)
[2020-04-27] MEDS ORDERED: MIRTAZAPINE TAB 15 MG TAB PO ONE (08:45)
[2020-04-27 10:17] LABS: BUN Creatinine Ratio 40.2 (10-20); Creatinine Clr Calc Pharmacy 63.7 ml/min; Est GFR (African American) 93.3; Est GFR (Non-African American) 80.5; Potassium 3.9 mmol/L (3.5-5.1)
--- NOTE | 2020-04-27 10:30 | Neurology Progress Note ---
Date of Service April 27, 2020 Assessment & Plan (1) Left arm weakness: (2) Facial nerve palsy: (3) Rhabdomyolysis: The patient has a left peripheral 7th weakness likely from swelling/compression injury to the exit point of the 7th cranial nerve under the ear on the left. He is a little more movement at the corner of the mouth today compared to yesterday. His left upper extremity weakness is likely peripheral. MRI of the brain did not show a stroke and I believe he has swelling and compression of multiple nerve in the upper forearm. he has no upper motor neuron signs. Examination today reveals a little better range of motion at the elbow and less tenderness with some movement of his fingers a little better than yesterday. His altered mental status could have been a combination of concussion, encephalopathy from a urinary tract infection, and/or dehydration with rhabd omyolysis and acute renal injury. Mental status was improved and stable yesterday and today. Recommendations: 1. continuing aspirin 81 milligrams daily 2. speech, occupational, and physical therapy. 3. Increase activity as able and he may be a good rehabilitation hospital candidate. 4. Agree with trying to wean off any sedative medication. I have no further neurologic testing or treatment recommendations to make at this time. Please contact me if I can be of further assistance on this case. Overall, I spent a total of 25 minutes with this case including review of records, direct evaluation the patient at bedside, and discussing the case with the patient at bedside. Admission and Anticipated Discharge Date Admission Date: April 24, 2020 Subjective Patient is not in any pain and is moving his left arm better. Nursing reports that he is a little bit more confused today. Results & Data ([facility]) Vital Signs (Past 12 Hours) Vital Signs Temp Pulse Pulse Pulse Pulse Resp BP 04/27/20 07:27 36.8 C 80 17 153/67 H 04/27/20 07:00 89 04/27/20 03:55 36.9 C 90 18 160/70 H 04/27/20 00:19 82 04/26/20 23:31 36.5 C 83 18 BP Pulse Ox 04/27/20 07:27 94 04/27/20 07:00 04/27/20 03:55 95 04/27/20 00:19 04/26/20 23:31 149/66 H 93 Exam (Neuro) Physical Exam: The patient was awake and alert. Speech was without aphasia or dysarthria. He has some tangential thinking but his mood was good. Extraocular eye muscles were intact without nystagmus and no facial droop. He has better movement of the left upper extremity proximally and distally but is still weak. He has some tenderness to palpation along his left hip but can move his leg. PG Care Time/CCT Total # of Minutes Spent Total Time Spent with Patient: Total time spent is greater than 50% in coordination of care (as documented) at patient's floor/unit and/or counseling patient: Coding Level of Care Code 39825 Subseq Hosp Care Lvl 2 Diagnoses Left arm weakness R29.898 Facial nerve palsy G51.0 Rhabdomyolysis T79.6XXA Encounter type: initial encounter Rhabdomyolysis type: traumatic Time Spent (min) 25 (1) Rhabdomyolysis Encounter type: initial encounter Rhabdomyolysis type: traumatic Qualified Code(s): T79.6XXA - Traumatic ischemia of muscle, initial encounter
[2020-04-27] MEDS: MULTIVITAMIN TAB PO SCH (11:54)
[2020-04-27] MEDS: amLODIPine BESYLATE 5 MG TAB PO SCH (11:54)
--- NOTE | 2020-04-27 12:46 | Pharmacy Report ---
Pharmacy Glycemic Short Note 2 - Date of Service April 27, 2020 - Glycemic Short BSG Results (Last 24 hours): 04/26/20 04/26/20 04/27/20 16:42 20:34 07:25 Glucose POC Glucose 213 H 180 H 128 H 04/27/20 04/27/20 09:21 11:09 Glucose 141 H POC Glucose 148 H ASSESSMENT: * Patient admitted after being found on floor of apt. Unsure of how long he was there. High concern for stroke. Patient appears to have left facial droop, l eft facial swelling, weakness of both left arm and left leg. 04/27: * Patient fairly well controlled receiving 22 units of insulin yesterday (13 unit basal, 9 units bolus). Lantus was altered for BID dosing and novolog goal range was lowered. If evening post prandial hyperglycemia continue this evening, will tighten novolog scale tomorrow. Patient does appear to be tolerating a diet. 04/25: * Patient remains NPO, continues on rocephin for UTI * BSGs stable this AM - 153 mg/dL, lunch time BSG trending up to 218 mg/dL / unclear reasoning. Plan to add small Lantus scale for HS if BSGs remain henrry vated PLAN FOR INPATIENT GLYCEMIC CONTROL: * Holding outpatient oral diabetes medications * Basal - 0-7 units BID depending on BSG value (7 units administered this morning) * Bolus insulin * NovoLog per scale ACHS or Q6hrs while NPO * Goal Range: Low 110 mg/dL - High 140 mg/dL * Correction Factor: 25 mg/dL/unit * Nutritional / Prandial insulin per carb ratio of 1 unit per 8 grams CHO consumed
[2020-04-27] MEDS: cefTRIAXone SODIUM 2,000 MG in DEXTROSE 5% 50 ML IV SCH (14:46)
[2020-04-27] MEDS ORDERED: INSULIN GLARGINE SOLOSTAR 100 UNITS/ML 3 ML PEN SC SCH (21:00)
[2020-04-27] MEDS ORDERED: MIRTAZAPINE TAB 15 MG TAB PO STA (22:25)
--- NOTE | 2020-04-27 22:36 | Hospitalist Progress Note ---
Date of Service April 27, 2020 Assessment & Plan (1) Altered mental status: Concern for CVA on admission, patient last known well on Saturday04/22/2020 at 0900 in the morning, outside therapeutic window. CTA of head and CTA of neck performed. MRI neg for acute stroke. -Essentially stroke has been ruled out. 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 Patient may have underlying dementia. This could also be from withdrawal of his medications. will restart intermittent dosing of his medicine: benzo and mirtazapine and monitor. - will likely need placement. - Will continue Amlodipine for now, will hold all other blood pressure and sedating medications. (2) Fall: - Admit to med Surg - PT/OT consults - CM to assist with dc planning for rehab as pt fell at the end of March as noted in PCP note - Supportive therapy with pain medication, IVF - Fall precautions - Patient unable to recall any events leading up to fall - Home safety evaluation and case management for placement evaluation following admission. (3) Abrasion of face: [facility] (4) Abrasion of elbow: (5) Abrasion of ankle: (6) Multiple fractures of ribs of left side: - Left 4,5,6,7 acute fracture - Incentive spirometry, flutter, pulmonary toilet, pain control - bacitracin ointment to abrased areas (7) Pressure injury of left buttock, stage 2: - Wound consult, sustained s/p fall onto the ground (8) Rhabdomyolysis: - CK of 13,785 on admission, aggressive hydration guided by urine output. Will replace with LR, patient is high risk. Urine PH 5.5 - Laid on the floor since fall which occured on Saturday, (>48hrs minimum) - No acute kidney issues on admission with cr still WNL Lauren catheter to guide resuscitation CK improving, continue IVF (9) Acute UTI: - UA appears grossly infected, cx pending - Continue ceftriaxone (10) Type 2 diabetes mellitus: - A1C = 6.6 from 04/18/20 - ISS with accuchecks achs - Hold glimepiride (11) HTN (hypertension): - HOLD losartan and cont amlodipine for now, BP stable, follow BMP to ensure no JEREMY. (12) Dyslipidemia: - Cont simvastatin - Lipids WNL - Adjust therapy if needed (13) Gastroesophageal reflux disease: - Cont pantoprazole (14) Depression: - HOLD trazodone 100 mg HS, mirtazapine 15 mg HS, clonazepam 1 mg HS These medications will need adjusted Likely not the entire cause of pt's current status, but may have contributed to previous falls (15) Prostate cancer: No acute needs. Lauren catheter will be placed. (16) PMR (polymyalgia rheumatica): - Hx of such DVT ppx: SCD's CODE: DNR/DNI Admission and Anticipated Discharge Date Admission Date: April 24, 2020 Subjective 84 yo male was more confused today. Review of Systems Review of Systems: All systems reviewed & are unremarkable except as noted in HPI & below Physical Exam Physical Exam: Constitutional: WD/WN, vitals as above Eyes: normal visual garcía by confrontation and + anicteric sclerae Neck: normal visual inspection and trachea midline Respiratory: normal respiratory effort, lungs clear to auscultation Cardiovascular: Rate/Rhythm: regular rate and regular rhythm Gastrointestinal (Abdomen): Inspection/Auscultation: abdomen not distended Percussion/Palpation: abdomen soft; abdomen nontender Musculoskeletal: Head/Neck/Chest: normocephalic and head atraumatic Skin: Multiple areas of abrasion noted Neurologic: awake; confused Speech / Cognition: + abnormal speech (mumbles, Answers are c/w questions asked) Psychiatric: Orientation: oriented x 1 Results & Data Results & Data ([facility]) Vital Signs (Past 12 Hours) Vital Signs Temp Pulse Pulse Pulse Resp BP BP 04/27/20 20:03 36.9 C 88 16 153/89 H 04/27/20 15:57 36.8 C 88 20 155/79 H 04/27/20 15:00 83 04/27/20 11:10 36.8 C 84 16 128/72 Pulse Ox 04/27/20 20:03 93 04/27/20 15:57 95 04/27/20 15:00 04/27/20 11:10 92 PG Care Time/CCT Total # of Minutes Spent Total Time Spent with Patient: Total time spent is greater than 50% in coordination of care (as documented) at patient's floor/unit and/or counseling patient: Coding Level of Care Code 51133 Subseq Hosp Care Lvl 3 Diagnoses Altered mental status R41.82 Fall W19.XXXA Encounter type: initial encounter Abrasion of face S00.81XA Encounter type: initial encounter Abrasion of elbow S50.319A Encounter type: initial encounter Laterality: unspecified laterality Abrasion of ankle S90.519A Encounter type: initial encounter Laterality: unspecified laterality Multiple fractures of ribs of left side S22.42XA Encounter type: initial encounter Fracture type: closed Pressure injury of left buttock, stage 2 L89.322 Rhabdomyolysis T79.6XXA Encounter type: initial encounter Rhabdomyolysis type: traumatic Acute UTI N39.0 Type 2 diabetes mellitus E11.9 HTN (hypertension) I10 Dyslipidemia E78.5 Gastroesophageal reflux disease K21.9 Depression F32.9 Prostate cancer C61 PMR (polymyalgia rheumatica) M35.3 Time Spent (min) 35 (1) Multiple fractures of ribs of left side Encounter type: initial encounter Fracture type: closed Qualified Code(s): S 22.42XA - Multiple fractures of ribs, left side, initial encounter for closed fracture (2) Rhabdomyolysis Encounter type: initial encounter Rhabdomyolysis type: traumatic Qualified Code(s): T79.6XXA - Traumatic ischemia of muscle, initial encounter (3) Abrasion of face Encounter type: initial encounter Qualified Code(s): S00.81XA - Abrasion of other part of head, initial encounter (4) Fall Encounter type: initial encounter Qualified Code(s): W19.XXXA - Unspecified fall, initial encounter (5) Abrasion of ankle Encounter type: initial encounter Laterality: unspecified laterality Qualified Code(s): S90.519A - Abrasion, unspecified ankle, initial encounter (6) Abrasion of elbow Encounter type: initial encounter Laterality: unspecified laterality Qualified Code(s): S50.319A - Abrasion of unspecified elbow, initial encounter
[2020-04-28] MEDS: MoRPHine SULFATE 2 MG/ML CARP IV PRN (04:26)
[2020-04-28] MEDS: ASPIRIN 81 MG CHEW PO SCH (08:24)
[2020-04-28] MEDS: SIMVASTATIN 20 MG TAB PO SCH (08:25)
[2020-04-28] MEDS: LIDOCAINE 5% 1 PATCH TD SCH (08:25)
[2020-04-28] MEDS: CHOLECALCIFEROL 1,000 UNITS 25 MCG TAB PO SCH (08:25)
[2020-04-28] MEDS: PANTOprazole 40 MG TAB PO SCH (08:25)
[2020-04-28] MEDS: BACITRACIN OINT 15 GM TUBE EXT SCH ×2 (08:26→21:02)
[2020-04-28] MEDS: INSULIN ASPART 100 UNITS/ML 3 ML PEN SC SCH ×4 (08:27→22:16)
[2020-04-28] MEDS: INSULIN GLARGINE SOLOSTAR 100 UNITS/ML 3 ML PEN SC SCH ×2 (08:27→22:15)
[2020-04-28 08:58] LABS: Basophils # (auto) 0.01 K/uL (0-0.2); Basophils % (auto) 0.1 %; Eosinophils # (auto) 0.06 K/uL (0-0.5); Eosinophils % (auto) 0.3 %; Hematocrit (blood only) 44.6 % (42-52); Hemoglobin 14.1 g/dL (14.0-18.0); Immature Granulocytes # (auto) 0.14 K/uL (0.00-0.02); Immature Granulocytes % (auto) 0.8 %; Lymphocytes # (auto) 1.07 K/uL (1.2-3.4); Lymphocytes % (auto) 6.2 %; Mean Corpuscular Hemoglobin 27.2 pg (25-34); Mean Corpuscular Hgb Conc 31.6 g/dL (32-36); Mean Corpuscular Volume 86.1 fL (80-100); Mean Platelet Volume 9.3 fL (7.4-10.4); Monocytes # (auto) 1.51 K/uL (0.11-0.59); Monocytes % (auto) 8.7 %; Neutrophils % (auto) 83.9 %; Platelet Count 443 K/uL (130-400); RDW Coefficient of Variation 14.7 % (11.5-14.5); RDW Standard Deviation 46.7 fL (36.4-46.3); Red Blood Count 5.18 M/uL (4.7-6.1); White Blood Count 17.29 K/uL (4.8-10.8)
[2020-04-28 09:26] LABS: BUN Creatinine Ratio 31.1 (10-20); Calcium 9.2 mg/dl (8.5-10.1); Creatinine Clr Calc Pharmacy 62.3 ml/min; Est GFR (African American) 92.3; Est GFR (Non-African American) 79.7; Potassium 3.8 mmol/L (3.5-5.1)
[2020-04-28] MEDS: MULTIVITAMIN TAB PO SCH (10:58)
[2020-04-28] MEDS: amLODIPine BESYLATE 5 MG TAB PO SCH (10:58)
[2020-04-28] MEDS: cefTRIAXone SODIUM 2,000 MG in DEXTROSE 5% 50 ML IV SCH (13:58)
--- NOTE | 2020-04-28 23:22 | Hospitalist Progress Note ---
Date of Service April 28, 2020 Assessment & Plan (1) Altered mental status: Concern for CVA on admission, patient last known well on Saturday04/22/2020 at 0900 in the morning, outside therapeutic window. CTA of head and CTA of neck performed. MRI neg for acute stroke. -Essentially stroke has been ruled out. 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 Patient may have underlying dementia. This could also be from withdrawal of his medications. restarted intermittent dosing of his medicine: benzo and mirtazapine and monitor. -improved on 04/28, still not at baseline. will resume dosing on 04/29 - will likely need placement. - Will continue Amlodipine for now, will hold all other blood pressure and sedating medications. (2) Fall: - Admit to med Surg - PT/OT consults - CM to assist with dc planning for rehab as pt fell at the end of March as noted in PCP note - Supportive therapy with pain medication, IVF - Fall precautions - Patient unable to recall any events leading up to fall - Home safety evaluation and case management for placement evaluation following admission. (3) Abrasion of face: [facility] (4) Abrasion of elbow: (5) Abrasion of ankle: (6) Multiple fractures of ribs of left side: - Left 4,5,6,7 acute fracture - Incentive spirometry, flutter, pulmonary toilet, pain control - bacitracin ointment to abrased areas (7) Pressure injury of left buttock, stage 2: - Wound consult, sustained s/p fall onto the ground (8) Rhabdomyolysis: - CK of 13,785 on admission, aggressive hydration guided by urine output. Will replace with LR, patient is high risk. Urine PH 5.5 - Laid on the floor since fall which occured on Saturday, (>48hrs minimum) - No acute kidney issues on admission with cr still WNL Lauren catheter to guide resuscitation CK improving, continue IVF (9) Acute UTI: - UA appears grossly infected, cx pending - Continue ceftriaxone (10) Type 2 diabetes mellitus: - A1C = 6.6 from 04/18/20 - ISS with accuchecks achs - Hold glimepiride (11) HTN (hypertension): - HOLD losartan and cont amlodipine for now, BP stable, follow BMP to ensure no JEREMY. (12) Dyslipidemia: - Cont simvastatin - Lipids WNL - Adjust therapy if needed (13) Gastroesophageal reflux disease: - Cont pantoprazole (14) Depression: - HELD trazodone 100 mg HS, mirtazapine 15 mg HS, clonazepam 1 mg HS These medications will need adjusted Likely not the entire cause of pt's current status, but may have contributed to previous falls (15) Prostate cancer: No acute needs. Lauren catheter will be placed. (16) PMR (polymyalgia rheumatica): - Hx of such DVT ppx: SCD's CODE: DNR/DNI Admission and Anticipated Discharge Date Admission Date: April 24, 2020 Subjective 84 yo male has remained intermittently confused today. However, has been more calm today. Review of Systems Review of Systems: All systems reviewed & are unremarkable except as noted in HPI & below Physical Exam Physical Exam: Constitutional: WD/WN, vitals as above Eyes: normal visual garcía by confrontation and + anicteric sclerae Neck: normal visual inspection and trachea midline Respiratory: normal respiratory effort, lungs clear to auscultation Cardiovascular: Rate/Rhythm: regular rate and regular rhythm Gastrointestinal (Abdomen): Inspection/Auscultation: abdomen not distended Percussion/Palpation: abdomen soft; abdomen nontender Musculoskeletal: Head/Neck/Chest: normocephalic and head atraumatic Skin: Multiple areas of abrasion noted Neurologic: awake; confused Speech / Cognition: + abnormal speech (mumbles, Answers are c/w questions asked) Psychiatric: Orientation: oriented x 1 Results & Data Results & Data ([facility]) Vital Signs (Past 12 Hours) Vital Signs Temp Pulse Pulse Pulse Resp BP BP 04/28/20 23:18 37.2 C 88 18 178/83 H 04/28/20 21:23 73 162/99 H 04/28/20 19:21 36.7 C 87 19 171/59 H 04/28/20 16:14 36.7 C 87 20 185/92 H 04/28/20 14:47 82 04/28/20 11:33 36.7 C 86 19 161/77 H Pulse Ox 04/28/20 23:18 93 04/28/20 21:23 04/28/20 19:21 95 04/28/20 16:14 95 04/28/20 14:47 04/28/20 11:33 96 PG Care Time/CCT Total # of Minutes Spent Total Time Spent with Patient: Total time spent is greater than 50% in coordination of care (as documented) at patient's floor/unit and/or counseling patient: Coding Level of Care Code 71012 Subseq Hosp Care Lvl 2 Diagnoses Altered mental status R41.82 Fall W19.XXXA Encounter type: initial encounter Abrasion of face S00.81XA Encounter type: initial encounter Abrasion of elbow S50.319A Encounter type: initial encounter Laterality: unspecified laterality Abrasion of ankle S90.519A Encounter type: initial encounter Laterality: unspecified laterality Multiple fractures of ribs of left side S22.42XA Encounter type: initial encounter Fracture type: closed Pressure injury of left buttock, stage 2 L89.322 Rhabdomyolysis T79.6XXA Encounter type: initial encounter Rhabdomyolysis type: traumatic Acute UTI N39.0 Type 2 diabetes mellitus E11.9 HTN (hypertension) I10 Dyslipidemia E78.5 Gastroesophageal reflux disease K21.9 Depression F32.9 Prostate cancer C61 PMR (polymyalgia rheumatica) M35.3 Time Spent (min) 25 (1) Multiple fractures of ribs of left side Encounter type: initial encounter Fracture type: closed Qualified Code(s): S22.42XA - Multiple fractures of ribs, left side, initial encounter for closed fracture (2) Rhabdomyolysis Encounter type: initial encounter Rhabdomyolysis type: traumatic Qualified Code(s): T79.6XXA - Traumatic ischemia of muscle, initial encounter (3) Abrasion of face Encounter type: initial encounter Qualified Code(s): S00.81XA - Abrasion of other part of head, initial encounter (4) Fall Encounter type: initial encounter Qualified Code(s): W19.XXXA - Unspecified fall, initial encounter (5) Abrasion of ankle Encounter type: initial encounter Laterality: unspecified laterality Qualified Code(s): S90.519A - Abrasion, unspecified ankle, initial encounter (6) Abrasion of elbow Encounter type: initial encounter Laterality: unspecified laterality Qualified Code(s): S50.319A - Abrasion of unspecified elbow, initial encounter
[2020-04-29] MEDS ORDERED: clonazePAM 0.5 MG TAB PO PRN (06:46)
[2020-04-29] MEDS: INSULIN ASPART 100 UNITS/ML 3 ML PEN SC SCH (08:03)
[2020-04-29] MEDS: ASPIRIN 81 MG CHEW PO SCH (08:09)
[2020-04-29] MEDS: INSULIN GLARGINE SOLOSTAR 100 UNITS/ML 3 ML PEN SC SCH (08:10)
[2020-04-29] MEDS: LIDOCAINE 5% 1 PATCH TD SCH (08:13)
[2020-04-29] MEDS: BACITRACIN OINT 15 GM TUBE EXT SCH (08:13)
[2020-04-29] MEDS: PANTOprazole 40 MG TAB PO SCH (08:14)
[2020-04-29] MEDS: CHOLECALCIFEROL 1,000 UNITS 25 MCG TAB PO SCH (08:14)
[2020-04-29] MEDS: SIMVASTATIN 20 MG TAB PO SCH (08:15)
--- NOTE | 2020-04-29 10:03 | Pharmacy Report ---
Pharmacy Glycemic Short Note 2 - Date of Service April 29, 2020 - Glycemic Short BSG Results (Last 24 hours): ASSESSMENT: 04/29: * Patient received 7 units basal insulin + 15 units bolus insulin for a total of 22 units yesterday * BSGs were well controlled: [phone] mg/dL * Fasting BSG well controlled today at 121 mg/dL * No changes to insulin regimen necessary at this time 04/27: * Patient fairly well controlled receiving 22 units of insulin yesterday (13 unit basal, 9 units bolus). Lantus was altered for BID dosing and novolog goal range was lowered. If evening post prandial hyperglycemia continue this evening, will tighten novolog scale tomorrow. Patient does appear to be tolerating a diet. PLAN FOR INPATIENT GLYCEMIC CONTROL: * Holding outpatient oral diabetes medications * Basal - no change * 0-7 units BID depending on BSG value * Bolus insulin - no change * NovoLog per scale ACHS or Q6hrs while NPO * Goal Range: Low 110 mg/dL - High 140 mg/dL * Correction Factor: 25 mg/dL/unit * Nutritional / Prandial insulin per carb ratio of 1 unit per 8 grams CHO consumed DISCHARGE RECOMMENDATIONS: * HbA1c = 6.7% which is very well controlled. Goal HbA1c would be < 8.0% for this patient. Consider discontinuing Glimepiride upon discharge to prevent hypoglycemia.
[2020-04-29] MEDS ORDERED: MIRTAZAPINE TAB 15 MG TAB PO SCH (21:00)
--- NOTE | 2020-05-08 17:26 | Discharge Summary ---
Date of Service April 29, 2020 Admission HPI Per Admitting Provider This is a 84-year-old male with PMHx of DM type II, HTN, HLD, depression, prostate cancer, GERD, who presents after being found on the ground in his home apartment bedroom by daughter. Last time known well Saturday morning around 9 AM. His last dose of pills known to be taken was Saturday afternoon. He recently fell about 2 weeks ago where he was evaluated here in the ER, after tripping on a blanket when trying to get out of bed. It is unknown how he fell at this point, and the patient is very confused. He is mumbling incoherently, unable to provide any recall of events, and cannot answer any questions. He does follow commands without difficulty. Patient has several areas of bruising and lacerations. Most significant is over his left elbow, and the left rib cage where multiple areas of bruising is. He also has a small area of abrasion over the right ring finger and middle finger, bilateral knees, bilateral ankles, and left temporal region with swelling moving down into the side of his left face. His daughter is present with him at bedside, states that she is the only family member in the area. He is able to asked me for water for his mouth. Denies any other specific complaints. Patient has full ROM to all extremities and neck. No pin-point tenderness to cervical or thoracic spine. Imaging performed in the EMD negavitve. Principal Diagnosis altered mental status Discharge Exam Constitutional: WD/WN, vitals as above Eyes: normal visual gacría by confrontation and + anicteric sclerae Neck: normal visual inspection and trachea midline Respiratory: normal respiratory effort, lungs clear to auscultation Cardiovascular: Rate/Rhythm: regular rate and regular rhythm Gastrointestinal (Abdomen): Inspection/Auscultation: abdomen not distended Percussion/Palpation: abdomen soft; abdomen nontender Musculoskeletal: Head/Neck/Chest: normocephalic and head atraumatic Skin: Multiple areas of abrasion noted Neurologic: awake; confused Speech / Cognition: + abnormal speech (mumbles, Answers are c/w questions asked) Psychiatric: Orientation: oriented x 1 Discharge Data Allergies Allergy/AdvReac Type Severity Reaction Status Date / Time Penicillins Allergy Unknown UNKNOWN Verified 04/24/20 12:58 celecoxib [From Celebrex] Allergy Verified 04/24/20 12:58 suvorexant [From Belsomra] Allergy Verified 04/24/20 12:58 temazepam Allergy Verified 04/24/20 12:58 venlafaxine [From Effexor] Allergy Verified 04/24/20 12:58 Consultations 04/24/20 13:14 ED Decision to Admit Stat 04/24/20 16:09 Consult Case Management - Discharge Planning Routine Consult Neurology Routine Ordered Studies 04/24/20 11:32 CT abd pelvis IV con only Urgent CT angio head w con Stat CT angio neck with con Stat CT cervical spine wo con Stat CT chest w con Stat CT head/brain wo con Stat 04/24/20 14:30 MR brain wo con Stat Hospital Course (1) Altered mental status: Concern for CVA on admission, patient last known well on Saturday04/22/2020 at 0900 in the morning, outside therapeutic window. CTA of head and CTA of neck performed. MRI neg for acute stroke. -Essentially stroke has been ruled out. 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 restarted intermittent dosing of his medicine: benzo and mirtazapine and monitor. -improved on 04/28, still not at baseline. will continue with decreased dosing of these medication. Will defer further titration with PCP. - will likely need placement. - Will continue Amlodipine for now, (2) Fall: - Admit to med Surg - PT/OT consults - CM to assist with dc planning for rehab as pt fell at the end of March as noted in PCP note - Supportive therapy with pain medication, IVF - Fall precautions - Patient unable to recall any events leading up to fall - Home safety evaluation and case management for placement evaluation following admission. (3) Abrasion of face: [facility] (4) Abrasion of elbow: (5) Abrasion of ankle: (6) Multiple fractures of ribs of left side: - Left 4,5,6,7 acute fracture - Incentive spirometry, flutter, pulmonary toilet, pain control - bacitracin ointment to abrased areas (7) Pressure injury of left buttock, stage 2: - Wound consult, sustained s/p fall onto the ground (8) Rhabdomyolysis: - CK of 13,785 on admission, aggressive hydration guided by urine output. Will replace with LR, patient is high risk. Urine PH 5.5 - Laid on the floor since fall which occured on Saturday, (>48hrs minimum) - No acute kidney issues on admission with cr still WNL Lauren catheter to guide resuscitation CK improving, treated with IVF (9) Acute UTI: - UA appears grossly infected, cx pending - Continue ceftriaxone (10) Type 2 diabetes mellitus: - A1C = 6.6 from 04/18/20 - ISS with accuchecks achs - Hold glimepiride (11) HTN (hypertension): - HOLD losartan and cont amlodipine for now, BP stable, follow BMP to ensure no JEREMY. (12) Dyslipidemia: - Cont simvastatin - Lipids WNL - Adjust therapy if needed (13) Gastroesophageal reflux disease: - Cont pantoprazole (14) Depression: - HELD trazodone 100 mg HS, mirtazapine 15 mg HS, clonazepam 1 mg HS These medications will need adjusted Likely not the entire cause of pt's current status, but may have contributed to previous falls (15) Prostate cancer: No acute needs. Lauren catheter will be placed. (16) PMR (polymyalgia rheumatica): - Hx of such DVT ppx: SCD's CODE: DNR/DNI Total Time Total Time Spent Total Time Spent (In Minutes): 32 Total Time Includes: Examination of the Patient, Discharge Planning and Medication Reconciliation Discharge Plan Discharge Items Patient Disposition[facility] Reason For Visit: POSSIBLE CVA WITH LOC,RHABDOMYOLOSIS,COMPLICATED U Discharge Diagnosis: Rhabdomyolysis Activity: Resume your previous activity Non-emergency contact: Primary Care Provider Call non-emergency contact if: you have any medication questions Follow-up/Referrals: Bo Mitchell DO [Primary Care Provider] - Diet: Carb Consistent or DM2 and Heart Healthy Diet Comment: minced/ moist Addtl Attending Provider Instructions: You have been hospitalized for an acute medical problem. During your stay at [facility], we have made an effort to correct the problem that brought you to the hospital while keeping you as comfortable as possible. Medications were used to bring your condition under control and your discharge instructions will include directions for any medications you should take after leaving the hospital. Please make sure you see your Primary Care Provider as part of your follow up plan. You had a work up for a stroke but this was negative. You had rhabdomyolysis however, you were treated with IVF. You alsop have likely nerve compression issues. Will recommend rehab. Also will likely need to taper off slowly your medications for agitation. FOLLOWUP WITH pcp in 1-2 weeks Pending Studies at Discharge: No Stand-Alone Forms: My [facility] Skilled Items Patient informed of condition?: Yes DNR: Yes Discharge Level of Care: Skilled Communicable Disease: No Discharge Prognosis: Stable Lines: None Urinary Catheter: No Medications and DC Order Prescriptions: New atorvastatin 10 mg tablet 10 mg PO HS Qty: 30 RF: 0 clonazepam 0.5 mg Tablet 0.5 mg PO HS Qty: 10 RF: 0 lidocaine 5 % Adhesive Patch,Medicated 1 patch transdermal QAM Qty: 10 RF: 0 aspirin 81 mg tablet,delayed release (DR/EC) 81 mg PO DAILY Qty: 30 RF: 0 Continued glimepiride 1 mg tablet 1 mg PO QAM Qty: 90 RF: 3 losartan 100 mg tablet 100 mg PO QAM Qty: 90 RF: 2 pantoprazole 40 mg tablet,delayed release (DR/EC) 40 mg PO QAM RF: 0 multivitamin [Multiple Vitamins] tablet 1 tab PO QDL RF: 0 cholecalciferol (vitamin D3) 25 mcg (1,000 unit) capsule 25 mcg PO QAM RF: 0 PreserVision AREDS-2 [id number] Capsule 1 tab PO BID RF: 0 amlodipine 5 mg tablet 5 mg PO QDL RF: 0 mirtazapine 15 mg tablet 15 mg PO HS RF: 0 Toviaz 4 mg tablet extended release 24 hr 4 mg PO PM RF: 0 Changed trazodone 50 mg tablet 50 mg PO HS Qty: 60 RF: 2 Discontinued simvastatin 20 mg tablet 20 mg PO QAM Qty: 90 RF: 3 diclofenac sodium 1 % gel 4 g topical QID Qty: 100 RF: 2 clonazepam 1 mg tablet 1 mg PO HS Qty: 30 RF: 1 ibuprofen 200 mg Tablet 600 mg PO Q6H PRN (Reason: Pain) RF: 0 turmeric 400 mg Capsule 1,500 mg PO PM RF: 0 Discharge Orders: Discharge Order (Routine); Ordered 04/29/20 Ordered By: Rip Barrow/Other Patient Handouts: High Blood Sugar (Hyperglycemia), Hypoglycemia (Low Blood Sugar), Managing Type 2 Diabetes Admission Data Admit Date/Time: 04/24/20 14:30 Attending Provider: Rip Lake Admit Provider: Selin Alex Primary Care Provider: Bo Mitchell Other Providers: Selin Alex ; Bo Lopez ; Laxmi Ibrahim [facility] Other Interventions: Discharge Summary Assessment (RN) Last Done: 04/29/20 10:37 Coding Level of Care Code D/C Day Management >30 mins Diagnoses Altered mental status R41.82 Fall W19.XXXA Encounter type: initial encounter Abrasion of face S00.81XA Encounter type: initial encounter Abrasion of elbow S50.319A Encounter type: initial encounter Laterality: unspecified laterality Abrasion of ankle S90.519A Encounter type: initial encounter Laterality: unspecified laterality Multiple fractures of ribs of left side S22.42XA Encounter type: initial encounter Fracture type: closed Pressure injury of left buttock, stage 2 L89.322 Rhabdomyolysis T79.6XXA Encounter type: initial encounter Rhabdomyolysis type: traumatic Acute UTI N39.0 Type 2 diabetes mellitus E11.9 HTN (hypertension) I10 Dyslipidemia E78.5 Gastroesophageal reflux disease K21.9 Depression F32.9 Prostate cancer C61 PMR (polymyalgia rheumatica) M35.3 Time Spent (min) 32
== END 2020-04-29 11:08 | DRG 565 ==
LOC: ED 11:20 → 2E 14:30 → SUATTDRO 14:30 → 2E 15:41 → 2S 04-28 18:50

== ENCOUNTER 2022-07-17 12:02 | Inpatient (IN) ==
[2022-07-17] MEDS ORDERED: MoRPHine SULFATE 2 MG/ML CARP IV PRN (12:08)
--- NOTE | 2022-07-17 12:13 | Emergency Department Note ---
Impression & Plan Fall, Closed hip fracture, Leukocytosis ED Provider Note NAME: JENNIFER SIMPSON AGE: 86 SEX: M : 1935 ARRIVES VIA: Ambulance INFORMANT: Patient ED PROVIDER(S): Reece Quiroz DO CHIEF COMPLAINT: fall and left hip pain HPI: Patient is an 86-year-old male who presents the ER he was walking with his walker. He notes he tripped over his walker and his feet and fell onto his left hip. He did not hit his head. No head or neck pain. He is complaining of left hip pain. He has been unable to ambulate secondary to the pain. Currently an 8 out of 10. He is taking Tylenol with no significant improvement of pain. Brought in by EMS. No chest pain or shortness of breath. No dizziness or lightheadedness. PAST MEDICAL HISTORY:See Below PAST SURGICAL HISTORY:See Below FAMILY HISTORY:See Below SOCIAL HISTORY:See Below HOME MEDICATIONS:See Below ALLERGIES:See Below VITALS:See Below PHYSICAL EXAMINATION: GENERAL: alert, well appearing, well nourished, no distress, non-toxic HEAD: normal cephalic, atraumatic EYE EXAM: normal conjunctiva, PERRL and EOM's grossly intact OROPHARYNX: no exudate, no erythema, lips, buccal mucosa, and tongue normal and mucous membranes are moist NECK: supple, no nuchal rigidity, no adenopathy, non-tender CHEST: stable to compression anteriorly and posteriorly LUNGS: clear to auscultation. Normal chest wall mechanics HEART: no murmurs, S1 normal and S2 normal ABDOMEN: abdomen soft, non-tender, normo-active bowel sounds, no masses, no rebound or guarding. PELVIS: stable to compression anteriorly and posteriorly BACK: Back is symmetrical on inspection and there is no deformity, no midline tenderness, no CVA tenderness. UPPER EXTREMITIES: full active and passive range of motion of all joints without tenderness to palpation LOWER EXTREMITIES: No tenderness throughout the entire right lower extremity on palpation. Tenderness over the left hip with significant pain with any movement. No tenderness at the mid femur distal femur knee tib-fib ankle or foot. DPs 2 out of 4. Gross sensation intact. NEURO EXAM: Normal sensorium, cranial nerves II-XII grossly intact, normal speech, no gross weakness of arms, no gross weakness of legs. GCS: 15. MEDICAL DECISION MAKING: Patient is a 86-year-old male who presents ER following mechanical fall. IV was established blood work was obtained. Discussed with EMS upon arrival. Labs show leukocytosis of 18,000. No significant anemia. He is complaining of hip pain. X-rays confirm hip fracture. BMP was unremarkable. LFTs were normal. No other complaints. UA was obtained after admission does show UTI. Please see hospitalist note for further treatment. COVID was negative. Discussed with Dr. Silva from orthopedic surgery in regards to the left hip fracture. He will see the patient as inpatient. Discussed with Dr. Sean Bai for further evaluation and treatment and admission. External records were reviewed. Patient was given IV fluids and IV narcotics Triage Nursing notes reviewed. Limited review of prior medical records performed Vital Signs: reviewed and remarkable for HTN Differential diagnosis: Differential diagnoses include major intracranial, cervical, spinal, thoracic, abdominal, pelvic and neurologic injury. Fracture, contusion, sprain, strain, laceration, abrasions included as well. ER treatment provided: See below Diagnostics interpreted by me include EKG and cardiac monitoring as listed below: -Cardiac Monitoring: An order was placed for continuous cardiac monitoring. The monitor shows a rate of 80 with sinus rhythm. -ECG: Sinus rhythm rate 75 Normal axis No PVCs QTC 426 -Laboratory studies:Interpreted by me as stated above in MDM and shown below. Imaging studies: Xrays: As interpreted by me: Portable AP upright 1 view of the chest shows no focal infiltrate X-rays of the hip and pelvis show left hip fracture CTs show: none Consultation(s): As described above discussed with care management in regards to admission and work-up. 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 Gallstones Gastric peptic ulcer History of prostate cancer s/p radiation treatment HTN (hypertension) Insomnia Irritable bowel syndrome detention current use of systemic steroids Mild obstructive sleep apnea No device PT REPORTS SLEEP INSOMNIA - DENIES HX SLEEP APNEA/NO DEVICES AT NIGHT Mixed conductive and sensorineural hearing loss Osteoarthritis Overactive bladder PMR (polymyalgia rheumatica) Rhabdomyolysis 04/2020 s/p fall (found one day after fall laying on left side*) Steroid-induced osteoporosis (~07/27/20) Type 2 diabetes mellitus NIDDM Vision problems WORSENING OVER THE LAST 3 MONTHS Surgical History Family history of reaction to anesthesia Post-op nausea H/O hand surgery H/O sinus surgery History of cataract surgery RT/LEFT History of colonoscopy History of esophagogastroduodenoscopy (EGD) last 12/19/21 @ [facility] History of excision of lesion Skin, left flank, excision: In office procedure Dr. Agustin 05/09/21 - Basal cell carcinoma, adenoid type - Examined margins free of neoplasm History of tooth extraction Hx laparoscopic cholecystectomy (06/22/21) Laparoscopic Cholecystectomy Dr. Agustin 06/22/2021 Family History Mother Stomach cancer Cancer Hypertension Daughter Breast cancer Family history of diabetes mellitus Other Family history non-contributory Denies family history of Ovarian cancer Prostate cancer Clotting disorder Myocardial infarction Lung cancer Colorectal cancer Social History Smoking Status: Former smoker Tobacco Type: Cigarettes Age Started Using Tobacco: 14; Age Quit Using Tobacco: 48; packs per day: 1; Second Hand Exposure: No; Hx Alcohol Use: No Hx Substance Use: No Preferred Language: Macanese Communication Ability: Effective Visual Impairment: Limited Hearing Ability: Use of Hearing Aid Completion Manager Required: No Beliefs That Will Affect Care: None marital status: Current Living Situation: Alone Current Living Situation Comment: LIVES IN APARTMENT BUILDING>FRIENDS CHECK IN current occupational status: retired How many Children do You have: 3 Feels Safe at Home: Yes Childhood Exposure to Second-Hand Smoke: No caffeine: Yes (cup of tea daily ) Dental Care, Regularly: Yes Physical Activity Frequency: Does not Exercise Seatbelt Use: always Sunscreen Use: No (doesn't go in sun) Assistive Devices: Denture - Upper and Hearing Aid - Bilateral Allergies Allergies Allergy/AdvReac Type Severity Reaction Status Date / Time No Known Allergies Allergy Verified 07/17/22 14:59 Home Meds Home Medications Medication Instructions Recorded Confirmed multivitamin (Multiple Vitamins 1 tab PO QDL 02/03/19 07/17/22 tablet) cholecalciferol (vitamin D3) 25 25 mcg PO QAM 12/14/19 07/17/22 mcg (1,000 unit) capsule omega [id number]-[id number]-fish oil 1,000 mg 1,100 cap PO ACHS 10/25/21 07/17/22 (120 mg-180 mg) capsule (Fish Oil) sodium chloride 2 % eye drops 1 drp ophthalmic (eye) BID 10/25/21 07/17/22 (Alecia 128) sodium chloride 5 % eye ointment 1 applic ophthalmic (eye) HS 10/25/21 07/17/22 (Alecia 128) esomeprazole magnesium 40 mg 40 mg PO DAILYBB 07/17/22 07/17/22 capsule,delayed release prednisolone acetate 1 % eye 1 drp OPB QAM 07/17/22 07/17/22 drops,suspension Previous Rx's Medication Instructions Recorded metformin 500 mg tablet 500 mg PO QAM #90 tabs 11/28/21 losartan 100 mg tablet 100 mg PO QDL #90 tabs 03/23/22 mirtazapine 15 mg tablet 15 mg PO HS #90 tabs 03/23/22 clonazepam 1 mg tablet 1 mg PO HS #30 tabs 04/25/22 simvastatin 20 mg tablet 20 mg PO QDL #90 tabs 04/25/22 trazodone 100 mg tablet 100 mg PO HS #90 tabs 05/03/22 amlodipine 5 mg tablet 7.5 mg PO QAM #135 tabs 06/01/22 fesoterodine 4 mg tablet,extended 4 mg PO QPM #90 tabs 06/13/22 release 24 hr (Toviaz) Results & Data (ED) Vital Signs Vital Signs - 24 hr 07/17/22 12:07 07/17/22 14:11 07/17/22 15:37 Temperature 37.1 C Temperature Source Oral Pulse Rate 85 Pulse Rate [Apical] 85 85 Respiratory Rate 18 18 16 Respiratory Effort / Characteristics Non-Labored Spontaneous Non-Labored Spontaneous Non-Labored Spontaneous Respiratory Depth Normal Normal Normal Blood Pressure 172/87 H Blood Pressure [Right Arm] 152/79 H 136/72 Blood Pressure Mean 115 Blood Pressure Mean [Right Arm] 103 93 Blood Pressure Position Lying Pulse Oximetry 93 93 92 Oxygen Delivery Method Room Air Room Air Room Air Sepsis Recent Fever Within 48 Hours No Sepsis New/Unexplained Change in Mental Status No Sepsis Action Taken by Nursing No Action Required Laboratory Data 07/17/22 12:34 07/17/22 12:34 Lab Results 07/17/22 07/17/22 07/17/22 Range/Units 12:34 12:34 12:34 WBC 18.58 H (4.8-10.8) K/ul RBC 5.59 (4.70-6.10) M/uL Hgb 15.5 (14.0-18.0) g/dl Hct 47.0 (42.0-52.0) % MCV 84.1 (80.0-100.0) fL MCH 27.7 (25.0-34.0) pg MCHC 33.0 (32.0-36.0) g/dL RDW Std Deviation 41.4 (36.4-46.3) fL RDW Coeff of Amilcar 13.5 (11.5-14.5) % Plt Count 287 (130-400) K/uL MPV 8.7 L (9.4-12.4) fL Immature Gran % (Auto) 0.8 % Neut % (Auto) 89.8 % Lymph % (Auto) 4.3 % Eagle % (Auto) 4.8 % Eos % (Auto) 0.1 % Baso % (Auto) 0.2 % Neut # (Auto) 16.69 H (1.40-6.50) K/uL Lymph # (Auto) 0.79 L (1.2-3.4) K/uL Eagle # (Auto) 0.90 H (0.11-0.59) K/uL Eos # (Auto) 0.02 (0-0.50) K/uL Baso # (Auto) 0.03 (0-0.2) K/uL Immature Gran # (Auto) 0.15 (0.01-0.20) K/uL PT 11.7 (9.0-12.0) Seconds INR 1.1 (0.9-1.1) APTT 27.6 (21.0-31.0) Seconds PTT Ratio 1.0 Sodium 142 (136-145) mmol/L Potassium 3.8 (3.5-5.1) mmol/L Chloride 106 (98-107) mmol/L Carbon Dioxide 26 (21-32) mmol/L Anion Gap 10 (3-11) BUN 16 (6-23) mg/dl Creatinine 0.82 (0.6-1.4) mg/dl Est Cr Clr Drug Dosing 60.2 ml/min Est GFR ( Amer) 91.5 ml/min Est GFR (Non-Af Amer) 79.0 ml/min BUN/Creatinine Ratio 19.5 (10-20) Glucose 136 H (70-99(Fasting)) mg/dl Calcium 9.7 (8.5-10.1) mg/dl Total Bilirubin 0.7 (0.2-1.0) mg/dl AST 18 (13-39) U/L ALT 16 (7-52) U/L Alkaline Phosphatase 72 (34-104) U/L Total Protein 6.9 (6.0-8.3) gm/dl Albumin 4.4 (3.4-5.0) gm/dl Globulin 2.5 (2.5-4.0) gm/dl Albumin/Globulin Ratio 1.8 (0.9-2) Urine Color Urine Appearance (Clear) Urine pH (4.5-7.5) Ur Specific [place] (1.000-1.030) Urine Protein (Negative) Urine Glucose (UA) (Negative) Urine Ketones (Negative) Urine Blood (Negative) Urine Nitrite (Negative) Urine Bilirubin (Negative) Urine Urobilinogen (Negative) Ur Leukocyte Esterase (Negative) Urine WBC (Auto) (0-5) /hpf Urine RBC (Auto) (0-4) /hpf U Hyaline Cast (Auto) (0-5) /lpf U Epithel Cells (Auto) (0-5) /lpf Urine Bacteria (Auto) (Negative) SARS-CoV-2, RNA, NAAT (NEGATIVE) 07/17/22 07/17/22 Range/Units 12:34 13:17 WBC (4.8-10.8) K/ul RBC (4.70-6.10) M/uL Hgb (14.0-18.0) g/dl Hct (42.0-52.0) % MCV (80.0-100.0) fL MCH (25.0-34.0) pg MCHC (32.0-36.0) g/dL RDW Std Deviation (36.4-46.3) fL RDW Coeff of Amilcar (11.5-14.5) % Plt Count (130-400) K/uL MPV (9.4-12.4) fL Immature Gran % (Auto) % Neut % (Auto) % Lymph % (Auto) % Eagle % (Auto) % Eos % (Auto) % Baso % (Auto) % Neut # (Auto) (1.40-6.50) K/uL Lymph # (Auto) (1.2-3.4) K/uL Eagle # (Auto) (0.11-0.59) K/uL Eos # (Auto) (0-0.50) K/uL Baso # (Auto) (0-0.2) K/uL Immature Gran # (Auto) (0.01-0.20) K/uL PT (9.0-12.0) Seconds INR (0.9-1.1) APTT (21.0-31.0) Seconds PTT Ratio Sodium (136-145) mmol/L Potassium (3.5-5.1) mmol/L Chloride (98-107) mmol/L Carbon Dioxide (21-32) mmol/L Anion Gap (3-11) BUN (6-23) mg/dl Creatinine (0.6-1.4) mg/dl Est Cr Clr Drug Dosing ml/min Est GFR ( Amer) ml/min Est GFR (Non-Af Amer) ml/min BUN/Creatinine Ratio (10-20) Glucose (70-99(Fasting)) mg/dl Calcium (8.5-10.1) mg/dl Total Bilirubin (0.2-1.0) mg/dl AST (13-39) U/L ALT (7-52) U/L Alkaline Phosphatase (34-104) U/L Total Protein (6.0-8.3) gm/dl Albumin (3.4-5.0) gm/dl Globulin (2.5-4.0) gm/dl Albumin/Globulin Ratio (0.9-2) Urine Color Dark Yellow Urine Appearance Clear (Clear) Urine pH 7.0 (4.5-7.5) Ur Specific [place] 1.022 (1.000-1.030) Urine Protein 1+ H (Negative) Urine Glucose (UA) Negative (Negative) Urine Ketones Trace H (Negative) Urine Blood Negative (Negative) Urine Nitrite Positive A (Negative) Urine Bilirubin Negative (Negative) Urine Urobilinogen Negative (Negative) Ur Leukocyte Esterase 1+ H (Negative) Urine WBC (Auto) >30 H (0-5) /hpf Urine RBC (Auto) 0-4 (0-4) /hpf U Hyaline Cast (Auto) 5-10 H (0-5) /lpf U Epithel Cells (Auto) 5-10 H (0-5) /lpf Urine Bacteria (Auto) 2+ H (Negative) SARS-CoV-2, RNA, NAAT NEGATIVE (NEGATIVE) Administered Medications Morphine Sulfate (Morphine Sulfate 4 Mg/Ml 1 Ml Carp\Vial) 4 mg IV Q1H PRN PRN Reason: Severe Pain (Rating 7,8,9,10) Stop: 07/31/22 12:07 Last Admin: 07/17/22 14:10 Dose: 4 mg Documented By: Admin: 07/17/22 12:37 Dose: 4 mg Documented By: JOHN Imaging Data Radiologist's Impression: Hip/Pelvis X-Ray 07/17/22 12:08 SINGLE VIEW PELVIS; 2 VIEWS LEFT HIP CLINICAL HISTORY: Fall. Left hip injury. FINDINGS: An AP view of the pelvis with AP and crosstable lateral views of the left hip are obtained. Correlation is made with pelvic CT dated 11/05/2021. The s keletal structures are osteopenic. There is an impacted fracture of the left femoral neck. Mild overlying soft tissue edema is noted. No additional fracture is seen involving the right hip or the visualized bony pelvis. Moderate arthritic change and joint space narrowing is seen in the hips. Degenerative sclerosis is noted in the sacroiliac joints and pubic symphysis. Lumbosacral spondylosis is partially visualized. Metallic fiducials are present within the prostate gland. There is no bowel obstruction. Atherosclerotic calcification is noted in the femoral arteries. IMPRESSION: Impacted fracture of the left femoral neck. Electronically signed by: Andres Ambriz M.D. 07/17/2022 1:24 PM Chest X-Ray 07/17/22 13:04 XR chest 1V portable HISTORY: Fall. hip fx COMPARISON: Chest 11/05/2021. FINDINGS: No pneumothorax. No pleural effusions. The heart is normal in size. There are old, healed right-sided rib fractures. Mild chronic interstitial thickening remains unchanged. Otherwise, the lungs are clear. There are calcifications within the aortic knob. Prior cholecystectomy. Nondisplaced left lateral ninth rib fracture which appears acute. IMPRESSION: 1. Nondisplaced left lateral ninth rib fracture which appears acute. 2. No pneumothorax. ACT 112: Negative or not required by law. Electronically signed by: Eduar Huizar M.D. 07/17/2022 1:24 PM Discharge Plan Visit Data Chief Complaint: Fall Stated Complaint: FALL ED Provider: Reece Quiroz Discharge Problem: Fall, Closed hip fracture, Leukocytosis Forms Stand Alone Forms: My [facility] Virtual View App Prescriptions Prescriptions: No Action losartan 100 mg tablet 100 mg PO QDL Qty: 90 3RF mirtazapine 15 mg tablet 15 mg PO HS Qty: 90 1RF clonazepam 1 mg tablet 1 mg PO HS Qty: 30 5RF trazodone 100 mg tablet 100 mg PO HS Qty: 90 3RF Toviaz 4 mg tablet extended release 24 hr 4 mg PO QPM Qty: 90 3RF multivitamin [Multiple Vitamins] tablet 1 tab PO QDL cholecalciferol (vitamin D3) 25 mcg (1,000 unit) capsule 25 mcg PO QAM simvastatin 20 mg tablet 20 mg PO QDL Qty: 90 3RF omega 7-idx-vbq-fish oil [Fish Oil] 1,000 mg (120 mg-180 mg) capsule 1,100 cap PO ACHS Alecia 128 2 % drops 1 drp ophthalmic (eye) BID Label Comments: 5% sodium chloride [Alecia 128] 5 % ointment 1 applic ophthalmic (eye) HS Label Comments: BOTH EYES metformin 500 mg tablet 500 mg PO QAM Qty: 90 3RF amlodipine 5 mg tablet 7.5 mg PO QAM Qty: 135 3RF prednisolone acetate 1 % drops,suspension 1 drp OPB QAM esomeprazole magnesium 40 mg capsule,delayed release(DR/EC) 40 mg PO DAILYBB Referrals Referrals: Bo Mitchell DO [Primary Care Provider] -
[2022-07-17] MEDS: MoRPHine SULFATE 4 MG/ML 1 ML CARP\\VIAL IV PRN ×2 (12:37→14:10)
[2022-07-17 12:56] LABS: Basophils # (auto) 0.03 K/uL (0-0.2); Basophils % (auto) 0.2 %; Eosinophils # (auto) 0.02 K/uL (0-0.50); Eosinophils % (auto) 0.1 %; Hemoglobin 15.5 g/dl (14.0-18.0); Immature Granulocytes # (auto) 0.15 K/uL (0.01-0.20); Immature Granulocytes % (auto) 0.8 %; Lymphocytes # (auto) 0.79 K/uL (1.2-3.4); Lymphocytes % (auto) 4.3 %; Mean Corpuscular Hemoglobin 27.7 pg (25.0-34.0); Mean Corpuscular Volume 84.1 fL (80.0-100.0); Mean Platelet Volume 8.7 fL (9.4-12.4); Monocytes % (auto) 4.8 %; Neutrophils # (auto) 16.69 K/uL (1.40-6.50); Neutrophils % (auto) 89.8 %; Platelet Count 287 K/uL (130-400); RDW Coefficient of Variation 13.5 % (11.5-14.5); RDW Standard Deviation 41.4 fL (36.4-46.3); Red Blood Count 5.59 M/uL (4.70-6.10); White Blood Count 18.58 K/ul (4.8-10.8)
[2022-07-17 13:24] LABS: INR 1.1 (0.9-1.1); Partial Thromboplastin Time 27.6 Seconds (21.0-31.0); Prothrombin Time 11.7 Seconds (9.0-12.0)
--- NOTE | 2022-07-17 13:25 | XRay Report ---
SINGLE VIEW PELVIS; 2 VIEWS LEFT HIP CLINICAL HISTORY: Fall. Left hip injury. FINDINGS: An AP view of the pelvis with AP and crosstable lateral views of the left hip are obtained. Correlation is made with pelvic CT dated 11/05/2021. The skeletal structures are osteopenic. There is an impacted fracture of the left femoral neck. Mild overlying soft tissue edema is noted. No additio nal fracture is seen involving the right hip or the visualized bony pelvis. Moderate arthritic change and joint space narrowing is seen in the hips. Degenerative sclerosis is noted in the sacroiliac gloria nts and pubic symphysis. Lumbosacral spondylosis is partially visualized. Metallic fiducials are pres ent within the prostate gland. There is no bowel obstruction. Atherosclerotic calcification is noted in the femoral arteries. IMPRESSION: Impacted fracture of the left femoral neck. Electronically signed by: Andres Ambriz M.D. 07/17/2022 1:24 PM
--- NOTE | 2022-07-17 13:26 | XRay Report ---
XR chest 1V portable HISTORY: Fall. hip fx COMPARISON: Chest 11/05/2021. FINDINGS: No pneumothorax. No pleural effusions. The heart is normal in size. There are old, healed r ight-sided rib fractures. Mild chronic interstitial thickening remains unchanged. Otherwise, the lung s are clear. There are calcifications within the aortic knob. Prior cholecystectomy. Nondisplaced lef t lateral ninth rib fracture which appears acute. IMPRESSION: 1. Nondisplaced left lateral ninth rib fracture which appears acute. 2. No pneumothorax. ACT 112: Negative or not required by law. Electronically signed by: Eduar Huizar M.D. 07/17/2022 1:24 PM
[2022-07-17 13:37] LABS: Albumin Level 4.4 gm/dl (3.4-5.0); Bilirubin,Total 0.7 mg/dl (0.2-1.0); Calcium 9.7 mg/dl (8.5-10.1); Potassium 3.8 mmol/L (3.5-5.1)
[2022-07-17 13:42] LABS: Appearance Urine Clear (Clear); Bacteria Urine Automated 2+ (Negative); Bilirubin Urine Negative (Negative); Blood Urine Negative (Negative); Color Urine Dark Yellow; Glucose Urine UA Negative (Negative); Ketones Urine Trace (Negative); Leukocyte Esterase Urine 1+ (Negative); Nitrite Urine Positive (Negative); Protein Urine 1+ (Negative); Specific Gravity Urine 1.022 (1.000-1.030); Urobilinogen Urine Negative (Negative); WBC Urine Automated >30 /hpf (0-5)
[2022-07-17 13:43] LABS: Albumin Globulin Ratio 1.8 (0.9-2); BUN Creatinine Ratio 19.5 (10-20); Creatinine Clr Calc Pharmacy 60.2 ml/min; Est GFR (African American) 91.5 ml/min; Globulin 2.5 gm/dl (2.5-4.0); Total Protein 6.9 gm/dl (6.0-8.3)
--- NOTE | 2022-07-17 14:07 | History & Physical Report ---
Date of Service July 17, 2022 Assessment & Plan (1) Fracture of femoral neck, left: Plan: Fragility Fracture of L Femoral Neck - s/p fall at home with resulting impacted fracture of the L femoral neck - Consult orthopedics, Dr. Silva -- appreciate surgical expertise and ?need for stabilization/ARMAND - NPO w/ D5-1/2NS @ 80cc/hr - PT, OT ordered - NWB until seen by ortho - Hold ARB - Scheduled APAP, morphine for breakthrough pain - Vitamin D level in AM - Will require bisphosphonate consideration as outpatient (2) Type 2 diabetes mellitus: Plan: T2DM - A1c at 6.5% in 05/2022 - controlled with metformin - Hold home medications - q6h BSG checks while NPO - SSI for now- adjust and add basal as required (3) HTN (hypertension): Plan: HTN - Hold home ARB - Continue amlodipine when appropriate (4) Gastric ulcer: Plan: PUD - Continue PPI as IV, transition back to NPO when appropriate (5) Hyperlipemia: Plan: HLD - Continue simvastatin when appropriate (6) Insomnia: Plan: Insomnia, Depression, Anxiety Continue nightly clonazepam when appropriate -- hold for now --> Do not want to precipitate withdrawal; can given spot doses IV Ativan PRN but need to be careful with ongoing morphine therapy --> Resume when appropriate Continue mirtazapine and trazodone Plan Code: DNR/DNI - confirmed w/ pt and daughter at bedside PPX: Give 1x dose of Lovenox now, then SCDs Diet: NPO w/ D5-1/2NS @ 80cc/hr Dispo: Anticipate patient will likely need rehab Consult: Ortho, PT OT History of Present Illness Primary Care Provider: Bo Mitchell DO This is an 86-year-old male with a history of hyperlipidemia, GERD, prostate adenocarcinoma, peptic ulcer disease, hypertension, type 2 diabetes, dementia who presented to [facility] following a fall and landing on his L hip. Since that time, he has had hip pain and an inability to ambulate. He denies hitting his head. He denies neck pain or head pain. He does not think he lost consciousness but said 'everything happened so fast.' He lives at home alone and does not have home health aids. His daughter says he reports feeling dizzy often, sometimes while standing up. He is often quite anxious and has been on Klonapin, mirtazapine, trazodone for a long time. He denies issues with voiding or stooling. No recent illnesses. He ambulates with a walker at baseline. In the ED, patient was found to be hemodynamically stable with blood pressure 170/90, heart rate 85, afebrile. Admission labs revealing leukocytosis to 18.6 with a left shift, relative monocytosis and lymphopenia. BUN 16/creatinine 0.82. X-ray of the left hip did demonstrate impacted fracture of the left femoral neck. He was given morphine 4 mg IV. Orthopedics was spoken to by the emergency physician. Allergies Allergy/AdvReac Type Severity Reaction Status Date / Time No Known Allergies Allergy Verified 07/17/22 14:59 Home Medications Medication Instructions Recorded Confirmed Type multivitamin (Multiple Vitamins 1 tab PO QDL 02/03/19 07/17/22 History tablet) cholecalciferol (vitamin D3) 25 25 mcg PO QAM 12/14/19 07/17/22 History mcg (1,000 unit) capsule omega 5-sla-fkp-fish oil 1,000 mg 1,100 cap PO ACHS 10/25/21 07/17/22 History (120 mg-180 mg) capsule (Fish Oil) sodium chloride 2 % eye drops 1 drp ophthalmic (eye) BID 10/25/21 07/17/22 History (Alecia 128) sodium chloride 5 % eye ointment 1 applic ophthalmic (eye) HS 10/25/21 07/17/22 History (Alecia 128) metformin 500 mg tablet 500 mg PO QAM #90 tabs 11/28/21 07/17/22 Rx losartan 100 mg tablet 100 mg PO QDL #90 tabs 03/23/22 07/17/22 Rx mirtazapine 15 mg tablet 15 mg PO HS #90 tabs 03/23/22 07/17/22 Rx clonazepam 1 mg tablet 1 mg PO HS #30 tabs 04/25/22 07/17/22 Rx simvastatin 20 mg tablet 20 mg PO QDL #90 tabs 04/25/22 07/17/22 Rx trazodone 100 mg tablet 100 mg PO HS #90 tabs 05/03/22 07/17/22 Rx amlodipine 5 mg tablet 7.5 mg PO QAM #135 tabs 12/16/22 01/31/23 Rx fesoterodine 4 mg tablet,extended 4 mg PO QPM #90 tabs 06/13/22 07/17/22 Rx release 24 hr (Toviaz) esomeprazole magnesium 40 mg 40 mg PO DAILYBB 07/17/22 07/17/22 History capsule,delayed release prednisolone acetate 1 % eye 1 drp OPB QAM 07/17/22 07/17/22 History drops,suspension Past Med/Surg History Medical History Allergic fungal sinusitis (AFS) Anxiety and depression Basal cell carcinoma of skin Chronic rhinitis Constipation Dry eye syndrome Dyslipidemia Facial paralysis on left side Facial paralysis on right side Gallstones Gastric peptic ulcer History of prostate cancer s/p radiation treatment HTN (hypertension) Insomnia Irritable bowel syndrome intermediate current use of systemic steroids Mild obstructive sleep apnea No device PT REPORTS SLEEP INSOMNIA - DENIES HX SLEEP APNEA/NO DEVICES AT NIGHT Mixed conductive and sensorineural hearing loss Osteoarthritis Overactive bladder PMR (polymyalgia rheumatica) Rhabdomyolysis 04/2020 s/p fall (found one day after fall laying on left side*) Steroid-induced osteoporosis (~07/27/20) Type 2 diabetes mellitus NIDDM Vision problems WORSENING OVER THE LAST 3 MONTHS Surgical History Family history of reaction to anesthesia Post-op nausea H/O hand surgery H/O sinus surgery History of cataract surgery RT/LEFT History of colonoscopy History of esophagogastroduodenoscopy (EGD) last 12/19/21 @ [facility] History of excision of lesion Skin, left flank, excision: In office procedure Dr. Agustin 05/09/21 - Basal cell carcinoma, adenoid type - Examined margins free of neoplasm History of tooth extraction Hx laparoscopic cholecystectomy (06/22/21) Laparoscopic Cholecystectomy Dr. Agustin 06/22/2021 Family History Mother Stomach cancer Cancer Hypertension Daughter Breast cancer Family history of diabetes mellitus Other Family history non-contributory Denies family history of Ovarian cancer Prostate cancer Clotting disorder Myocardial infarction Lung cancer Colorectal cancer Social History Smoking Status: Never smoker Tobacco Type: Cigarettes Age Started Using Tobacco: 14; Age Quit Using Tobacco: 48; packs per day: 1; Second Hand Exposure: No; Hx Alcohol Use: No Hx Substance Use: No Preferred Language: Citizen Of [place] Communication Ability: Effective Visual Impairment: Limited Hearing Ability: Use of Hearing Aid Third Rail Installer Required: No Beliefs That Will Affect Care: None marital status: Current Living Situation: Alone Current Living Situation Comment: LIVES IN APARTMENT BUILDING>FRIENDS CHECK IN current occupational status: retired How many Children do You have: 3 Feels Safe at Home: Yes Safety Concerns: Feels Safe At This Time Childhood Exposure to Second-Hand Smoke: No caffeine: Yes (cup of tea daily ) Dental Care, Regularly: Yes Physical Activity Frequency: Does not Exercise Seatbelt Use: always Sunscreen Use: No (doesn't go in sun) Assistive Devices: Hearing Aid - Bilateral and Walker Review of Systems Review of Systems: as per HPI Physical Exam Physical Exam: General: 86-year old male who is alert, oriented, and appears in no acute distress. HEENT: NCAT. - Eyes - Sclera are white, anicteric, and without injection. - Mouth - MMM - Neck - supple, no appreciable JVD Cardiac: Normal rate and regular rhythm; S1 and S2 present with no murmurs, rubs, or gallops. Pulmonary: Good respiratory effort with symmetric expansion of the chest. No use of accessory muscles. Lungs were clear to auscultation bilaterally with no crackles or wheezes. Abdominal: Normoactive bowel sounds. Abdomen was soft, nondistended, and non- tender to palpation. Extremities: Upper and lower extremities are warm and well perfused. No peripheral edema in the lower extremities bilaterally. MSK: Mild TTP over the general region of the L greater trochanter. Strength and sensation are both in-tact in the distal lower extremities bilaterally. No clonus. Psych: Well-developed, well-nourished, appropriately dressed for occasion. Behavior is cooperative and appropriate. Affect is WNL. Insight is appropriate. Results & Data Results & Data ([facility]) Vital Signs (Past 12 Hours) Vital Signs Temp Pulse Resp BP Pulse Ox O2 Del Method 07/17/22 12:07 37.1 C 85 18 172/87 H 93 Room Air Supervising Physician Co-Signing Physician Notes I personally saw and examined the patient. I verified all alves points and agree with resident physician Dr Reece Murguia, with the following exceptions and/or additions: 86 year old male presents to the ER after falling on his left hip. Left hip fracture on x-ray. Concern for dizziness prior to falling. O/E A&Ox3, HS, RRR, no murmurs, Chest CTAB, Abdo SNT, DP/PT pulses intact distal to # site, Left 1st MTPJ 5/5 dorsi/plantarflexion A/P Left hip fracture - Pre-op Lovenox 40mg SQ, vitamin D level in AM, DEXA scan as outpatient, pre-op EKG NSR without ischemic changes, CXR rib # but no PNA, NPO after midnight, IV fluids, pain medications as order, consult orthopedics for definitive # management tomorrow Rib # - incentive spirometer Hypertension - hold losartan given concerns for dizziness on standing, continue amlodipine but hold if sBP < 120 Insomnia - ordered Klonopin, although increased risk of falls he has been on this for years and do not wish to precipitate withdrawal, consider reduction if unsteady on his feet post operatively Resident Activity Tracking Resident Involvement: Resident Care Provided Care Provided: Adult Hospital Medicine (1) Type 2 diabetes mellitus Diabetes mellitus complication status: without complication Diabetes mellitus ad terminal makeup operator insulin use: unspecified ad terminal makeup operator insulin use status Qualified Code(s): E11.9 - Type 2 diabetes mellitus without complications
[2022-07-17 14:22] LABS: RBC Urine Automated 0-4 /hpf (0-4)
[2022-07-17] MEDS ORDERED: ENOXAPARIN INJ 40 MG/0.4 ML SYR SQ ONE (15:45)
[2022-07-17] MEDS ORDERED: D5W AND 1/2NSS 1,000 ML IV SCH (16:26)
[2022-07-17] MEDS ORDERED: NALOXONE HCL 0.4 MG/1 ML VIAL/CARP IV PRN (16:26)
[2022-07-17] MEDS ORDERED: GLUCOSE 10 TAB/TUBE PO PRN (16:26)
[2022-07-17] MEDS ORDERED: CARBOHYDRATES FOR HYPOGLYCEMIA PO PRN (16:26)
[2022-07-17] MEDS ORDERED: GLUCAGON FOR INJ 1 MG VIAL SQ PRN (16:26)
[2022-07-17] MEDS ORDERED: ACETAMINOPHEN 10MG/ML Custom 1,000 MG in EMPTY BAG 0 ML IV SCH (16:26)
[2022-07-17] MEDS ORDERED: ONDANSETRON INJ 2 MG/ML 2 ML VIAL IV PRN (16:26)
[2022-07-17] MEDS ORDERED: DEXTROSE 50% 50 ML SYRINGE IV PRN (16:26)
[2022-07-17] MEDS ORDERED: GLUCOSE 40% GEL 15 GM TUBE PO PRN (16:26)
[2022-07-17] MEDS ORDERED: GLYCERIN PR PRN (16:26)
--- NOTE | 2022-07-17 17:04 | Orthopedic Consultation ---
Date of Service July 17, 2022 Assessment & Plan (1) Closed hip fracture: 86-year-old gentleman with a displaced femoral neck fracture. He previously ambulated use of walker. Lives by himself. He has been admitted by the medicine service and indicated for surgical treatment. We discussed treatment option with the patient his daughter today. Certainly there favoring and strong desire to have his hip fixed. We will proceed with a left cemented bipolar hip arthroplasty. He is got some mild arthritis but not enough to warrant more aggressive intervention. The risks and benefits of a cemented bipolar hip arthroplasty were explained to the patient and family include but not limited to DVT PE infection neurological and vascular bleeding palm pain limb range of motion stiffness failure relieve symptoms incomplete relief of symptoms etc. The patient understands and desires to proceed. Informed consent was obtained. They did give him 1 dose of Lovenox. We will hold all anticoagulation after that. Could continue DVT prophylax include thigh teds SCDs. He will likely need a rehab stay postoperatively. History of Present Illness Reason for Consultation: . Left hip fracture Requesting Physician: . Attending Physician: Sean Bai MD . Patient is an 86-year-old gentleman who lives by himself and ambulates with use of a walker who sustained a fall earlier today. He just, lost his balance on his left hip and had the cute onset of pain. He was brought to emergency room w here x-rays revealed a displaced femoral neck fracture. We are consulted for evaluation. He denies any other injuries. He does have some pre-existing hip and knee pain. He walks with use of a walker. He does live by himself. He is got some mild dementia. His daughter is with him today. Allergies Allergy/AdvReac Type Severity Reaction Status Date / Time No Known Allergies Allergy Verified 07/17/22 14:59 Home Medications Medication Instructions Recorded Confirmed Type multivitamin (Multiple Vitamins 1 tab PO QDL 02/03/19 07/17/22 History tablet) cholecalciferol (vitamin D3) 25 25 mcg PO QAM 12/14/19 07/17/22 History mcg (1,000 unit) capsule omega 4-gyp-lyr-fish oil 1,000 mg 1,100 cap PO ACHS 10/25/21 07/17/22 History (120 mg-180 mg) capsule (Fish Oil) sodium chloride 2 % eye drops 1 drp ophthalmic (eye) BID 10/25/21 07/17/22 Hi story (Alecia 128) sodium chloride 5 % eye ointment 1 applic ophthalmic (eye) HS 10/25/21 07/17/22 History (Alecia 128) metformin 500 mg tablet 500 mg PO QAM #90 tabs 11/28/21 07/17/22 Rx losartan 100 mg tablet 100 mg PO QDL #90 tabs 03/23/22 07/17/22 Rx mirtazapine 15 mg tablet 15 mg PO HS #90 tabs 03/23/22 07/17/22 Rx clonazepam 1 mg tablet 1 mg PO HS #30 tabs 04/25/22 07/17/22 Rx simvastatin 20 mg tablet 20 mg PO QDL #90 tabs 04/25/22 07/17/22 Rx trazodone 100 mg tablet 100 mg PO HS #90 tabs 05/03/22 07/17/22 Rx amlodipine 5 mg tablet 7.5 mg PO QAM #135 tabs 06/01/22 07/17/22 Rx fesoterodine 4 mg tablet,extended 4 mg PO QPM #90 tabs 06/13/22 07/17/22 Rx release 24 hr (Toviaz) esomeprazole magnesium 40 mg 40 mg PO DAILYBB 07/17/22 07/17/22 History capsule,delayed release prednisolone acetate 1 % eye 1 drp OPB QAM 07/17/22 07/17/22 History drops,suspension Past Med/Surg History Medical History Allergic fungal sinusitis (AFS) Anxiety and depression Basal cell carcinoma of skin Chronic rhinitis Constipation Dry eye syndrome Dyslipidemia Facial paralysis on left side Facial paralysis on right side Gallstones Gastric peptic ulcer History of prostate cancer s/p radiation treatment HTN (hypertension) Insomnia Irritable bowel syndrome intermediate current use of systemic steroids Mild obstructive sleep apnea No device PT REPORTS SLEEP INSOMNIA - DENIES HX SLEEP APNEA/NO DEVICES AT NIGHT Mixed conductive and sensorineural hearing loss Osteoarthritis Overactive bladder PMR (polymyalgia rheumatica) Rhabdomyolysis 04/2020 s/p fall (found one day after fall laying on left side*) Steroid-induced osteoporosis (~07/27/20) Type 2 diabetes mellitus NIDDM Vision problems WORSENING OVER THE LAST 3 MONTHS Surgical History Family history of reaction to anesthesia Post-op nausea H/O hand surgery H/O sinus surgery History of cataract surgery RT/LEFT History of colonoscopy History of esophagogastroduodenoscopy (EGD) last 12/19/21 @ [facility] History of excision of lesion Skin, left flank, excision: In office procedure Dr. Agustin 05/09/21 - Basal cell carcinoma, adenoid type - Examined margins free of neoplasm History of tooth extraction Hx laparoscopic cholecystectomy (06/22/21) Laparoscopic Cholecystectomy Dr. Agustin 06/22/2021 Family History Mother Stomach cancer Cancer Hypertension Daughter Breast cancer Family history of diabetes mellitus Other Family history non-contributory Denies family history of Ovarian cancer Prostate cancer Clotting disorder Myocardial infarction Lung cancer Colorectal cancer Social History Smoking Status: Former smoker Tobacco Type: Cigarettes Age Started Using Tobacco: 14; Age Quit Using Tobacco: 48; packs per day: 1; Second Hand Exposure: No; Hx Alcohol Use: No Hx Substance Use: No Preferred Language: [place] Communication Ability: Effective Visual Impairment: Limited Hearing Ability: Use of Hearing Aid Counseling Department Chair Required: No Beliefs That Will Affect Care: None marital status: Current Living Situation: Alone Current Living Situation Comment: LIVES IN APARTMENT BUILDING>FRIENDS CHECK IN current occupational status: retired How many Children do You have: 3 Feels Safe at Home: Yes Childhood Exposure to Second-Hand Smoke: No caffeine: Yes (cup of tea daily ) Dental Care, Regularly: Yes Physical Activity Frequency: Does not Exercise Seatbelt Use: always Sunscreen Use: No (doesn't go in sun) Assistive Devices: Denture - Upper and Hearing Aid - Bilateral Review of Systems All systems reviewed & are unremarkable except as noted in HPI & below. Physical Exam . Physical examination of the left leg reveals the patient be lying in bed. His leg is clearly shortened flexed and externally rotated. There is no bruising or swelling. He is got some mild degenerative changes in his knee. He is got marked pain with any type of hip motion. He cannot do a straight leg raise. He is neurologically intact otherwise. Examination of the right leg reveals to be well aligned. Is got some bony bridge fragments knee. No pain with hip motion. Results & Data Results & Data Laboratory Results . Diagnostic Findings . X-rays of the pelvis and left hip were reviewed. Shows displaced femoral neck fracture. Is got very mild hip arthritis. Good good superior joint space. A little inferior arthritis and osteophyte formation. Diffuse osteopenia. PG Care Time/CCT Total # of Minutes Spent Total Time Spent with Patient: Total time spent is greater than 50% in coordination of care (as documented) at patient's floor/unit and/or counseling patient: Coding Level of Care Code INP/OBS CONSULT LVL 5, 80 MIN Diagnoses Closed hip fracture S72.009A
--- NOTE | 2022-07-17 17:12 | Anesthesiology Consultation ---
Date of Service July 17, 2022 Assessment & Plan (1) Encounter for pre-operative examination: Chart Review Chart Review: medical charge entry specialist initiated History Surgery Operation Date: 07/18/22 10:10 Proposed Procedures p Left Cemented Bipolar Arthroplasty - Suleiman Silva MD Height/Weight Height: 5 ft 8 in Weight: 75 kg Allergies Allergy/AdvReac Type Severity Reaction Status Date / Time No Known Allergies Allergy Verified 07/17/22 14:59 Medications Home Medications Medication Instructions Recorded Confirmed Last Taken multivitamin (Multiple Vitamins 1 tab PO QDL 02/03/19 07/17/22 07/16/22 tablet) cholecalciferol (vitamin D3) 25 25 mcg PO QAM 12/14/19 07/17/22 07/17/22 mcg (1,000 unit) capsule omega 8-qrz-uua-fish oil 1,000 mg 1,100 cap PO ACHS 10/25/21 07/17/22 07/17/22 08:00 (120 mg-180 mg) capsule (Fish Oil) sodium chloride 2 % eye drops 1 drp ophthalmic (eye) BID 10/25/21 07/17/22 07/17/22 08:00 (Alecia 128) sodium chloride 5 % eye ointment 1 applic ophthalmic (eye) HS 10/25/21 07/17/22 07/16/22 (Alecia 128) metformin 500 mg tablet 500 mg PO QAM #90 tabs 11/28/21 07/17/22 07/17/22 losartan 100 mg tablet 100 mg PO QDL #90 tabs 03/23/22 07/17/22 07/16/22 mirtazapine 15 mg tablet 15 mg PO HS #90 tabs 03/23/22 07/17/22 07/16/22 clonazepam 1 mg tablet 1 mg PO HS #30 tabs 04/25/22 07/17/22 07/16/22 simvastatin 20 mg tablet 20 mg PO QDL #90 tabs 04/25/22 07/17/22 07/16/22 trazodone 100 mg tablet 100 mg PO HS #90 tabs 05/03/22 07/17/22 07/16/22 amlodipine 5 mg tablet 7.5 mg PO QAM #135 tabs 06/01/22 07/17/22 07/17/22 fesoterodine 4 mg tablet,extended 4 mg PO QPM #90 tabs 06/13/22 07/17/22 07/16/22 release 24 hr (Toviaz) esomeprazole magnesium 40 mg 40 mg PO DAILYBB 07/17/22 07/17/22 07/17/22 capsule,delayed release prednisolone acetate 1 % eye 1 drp OPB QAM 07/17/22 07/17/22 07/17/22 drops,suspension Active Medications Generic Name Dose Route Start Last Admin Trade Name Freq PRN Reason Stop Dose Admin Morphine Sulfate 4 mg 07/17/22 12:08 07/17/22 14:10 Morphine Sulfate 4 Mg/Ml 1 Ml Carp\Vial IV 07/31/22 12:07 4 mg Q1H PRN Administration Severe Pain (Rating 7,8,9,10) Past Medical History Medical History Allergic fungal sinusitis (AFS) Anxiety and depression Basal cell carcinoma of skin Chronic rhinitis Constipation Dry eye syndrome Dyslipidemia Facial paralysis on left side Facial paralysis on right side Gallstones Gastric peptic ulcer History of prostate cancer s/p radiation treatment HTN (hypertension) Insomnia Irritable bowel syndrome skilled nursing current use of systemic steroids Mild obstructive sleep apnea No device PT REPORTS SLEEP INSOMNIA - DENIES HX SLEEP APNEA/NO DEVICES AT NIGHT Mixed conductive and sensorineural hearing loss Osteoarthritis Overactive bladder PMR (polymyalgia rheumatica) Rhabdomyolysis 04/2020 s/p fall (found one day after fall laying on left side*) Steroid-induced osteoporosis (~07/27/20) Type 2 diabetes mellitus NIDDM Vision problems WORSENING OVER THE LAST 3 MONTHS Past Family History Family History Mother Stomach cancer Cancer Hypertension Daughter Breast cancer Family history of diabetes mellitus Other Family history non-contributory Denies family history of Ovarian cancer Prostate cancer Clotting disorder Myocardial infarction Lung cancer Colorectal cancer Past Surgical History Surgical History Family history of reaction to anesthesia Post-op nausea H/O hand surgery H/O sinus surgery History of cataract surgery RT/LEFT History of colonoscopy History of esophagogastroduodenoscopy (EGD) last 12/19/21 @ [facility] History of excision of lesion Skin, left flank, excision: In office procedure Dr. Agustin 05/09/21 - Basal cell carcinoma, adenoid type - Examined margins free of neoplasm History of tooth extraction Hx laparoscopic cholecystectomy (06/22/21) Laparoscopic Cholecystectomy Dr. Agustin 06/22/2021 Social History Smoking Status: Never smoker tobacco type: cigarettes Hx Alcohol Use: No Hx Substance Use: No substance use type: does not use Physical Exam Vital Signs Last Vital Signs Temp 97.5 F L 07/17/22 16:28 Pulse 94 H 07/17/22 16:28 Resp 18 07/17/22 16:28 BP 179/75 H 07/17/22 16:28 Pulse Ox 93 07/17/22 16:28 O2 Del Method 07/17/22 16:28 Testing Laboratory Results 07/17/22 12:34 07/17/22 12:34 PT 11.7 Seconds (9.0-12.0) 07/17/22 12:34 INR 1.1 (0.9-1.1) 07/17/22 12:34 APTT 27.6 Seconds (21.0-31.0) 07/17/22 12:34 Urine Color Dark Yellow 07/17/22 13:17 Urine Appearance Clear (Clear) 07/17/22 13:17 Urine pH 7.0 (4.5-7.5) 07/17/22 13:17 Ur Specific [place] 1.022 (1.000-1.030) 07/17/22 13:17 Urine Protein 1+ (Negative) H 07/17/22 13:17 Urine Glucose (UA) Negative (Negative) 07/17/22 13:17 Urine Ketones Trace (Negative) H 07/17/22 13:17 Urine Nitrite Positive (Negative) A 07/17/22 13:17 Ur Leukocyte Esterase 1+ (Negative) H 07/17/22 13:17 Urine WBC (Auto) >30 /hpf (0-5) H 07/17/22 13:17 Urine RBC (Auto) 0-4 /hpf (0-4) 07/17/22 13:17 U Hyaline Cast (Auto) 5-10 /lpf (0-5) H 07/17/22 13:17 U Epithel Cells (Auto) 5-10 /lpf (0-5) H 07/17/22 13:17 Urine Bacteria (Auto) 2+ (Negative) H 07/17/22 13:17 Electrocardiogram Date: 11/05/21 Normal sinus rhythm, rate 75 bpm Normal ECG When compared with ECG of 18-MAY-2021 09:10, Nonspecific T wave abnormality has replaced inverted T waves in Inferior leads Confirmed by Dm Davila ([id number]) on 11/05/2021 3:14:00 PM Chest X-Ray Date: 07/17/22 FINDINGS: No pneumothorax. No pleural effusions. The heart is normal in size. There are old, healed right-sided rib fractures. Mild chronic interstitial thi ckening remains unchanged. Otherwise, the lungs are clear. There are calcifications within the aortic knob. Prior cholecystectomy. Nondisplaced left lateral ninth rib fracture which appears acute. IMPRESSION: 1. Nondisplaced left lateral ninth rib fracture which appears acute. 2. No pneumothorax. Echocardiogram Date: 04/25/20 Normal LV size. Mild concentric LVH. LVEF 65-70%. No regional wall motion abnormalities. Normal RV size and function. No significant valvular pathology. Normal estimated PA and RA pressures. Negative saline contrast study for interatrial shunt.
[2022-07-17] MEDS: ACETAMINOPHEN 1,000 MG/100 ML VIAL IV SCH (17:53)
[2022-07-17] MEDS: INSULIN ASPART PER UNIT SC SCH ×2 (17:54→22:25)
[2022-07-17] MEDS ORDERED: ENOXAPARIN INJ 40 MG/0.4 ML SYR SQ STA (18:56)
[2022-07-17] MEDS: SODIUM CHLORIDE 5% (MURO) OP OINT 3.5 GM TUBE OP SCH (20:06)
[2022-07-17] MEDS: traZODone HCL 100 MG TAB PO SCH (22:20)
[2022-07-17] MEDS: clonazePAM 1 MG TAB PO SCH (22:20)
[2022-07-17] MEDS: MIRTAZAPINE TAB 15 MG TAB PO SCH (22:21)
[2022-07-18] MEDS: ACETAMINOPHEN 1,000 MG/100 ML VIAL IV SCH ×3 (01:19→18:27)
[2022-07-18] MEDS: INSULIN ASPART PER UNIT SC SCH ×6 (01:23→21:20)
--- NOTE | 2022-07-18 02:38 | Billing Data ---
Date of Service July 17, 2022 Coding Level of Care Code 42773 INT INP/OBS CARE
[2022-07-18] MEDS: MoRPHine SULFATE 4 MG/ML 1 ML CARP\\VIAL IV PRN (04:50)
[2022-07-18] MEDS ORDERED: NON-FORMULARY MEDICATION (Esomeprazole Magnesium 40 mg capsule,delayed release(DR/EC)) PO SCH (06:30)
[2022-07-18] MEDS ORDERED: D5W AND 1/2NSS 1,000 ML IV SCH (06:45)
[2022-07-18 08:03] LABS: Basophils # (auto) 0.02 K/uL (0-0.2); Basophils % (auto) 0.2 %; Eosinophils # (auto) 0.11 K/uL (0-0.50); Eosinophils % (auto) 0.9 %; Hematocrit (blood only) 44.1 % (42.0-52.0); Hemoglobin 14.5 g/dl (14.0-18.0); Immature Granulocytes # (auto) 0.23 K/uL (0.01-0.20); Lymphocytes # (auto) 0.79 K/uL (1.2-3.4); Lymphocytes % (auto) 6.8 %; Mean Corpuscular Hemoglobin 27.6 pg (25.0-34.0); Mean Corpuscular Hgb Conc 32.9 g/dL (32.0-36.0); Mean Platelet Volume 8.8 fL (9.4-12.4); Monocytes # (auto) 0.69 K/uL (0.11-0.59); Monocytes % (auto) 5.9 %; Neutrophils # (auto) 9.83 K/uL (1.40-6.50); Neutrophils % (auto) 84.2 %; Platelet Count 231 K/uL (130-400); RDW Coefficient of Variation 13.7 % (11.5-14.5); RDW Standard Deviation 41.9 fL (36.4-46.3); Red Blood Count 5.25 M/uL (4.70-6.10); White Blood Count 11.67 K/ul (4.8-10.8)
[2022-07-18] MEDS: amLODIPine BESYLATE 5 MG TAB PO SCH (09:30)
[2022-07-18] MEDS: prednisoLONE acetate 1% OP SUSP 5 ML BTL OPB SCH (09:31)
[2022-07-18 10:22] LABS: Albumin Globulin Ratio 1.7 (0.9-2); Albumin Level 3.9 gm/dl (3.4-5.0); BUN Creatinine Ratio 17.1 (10-20); Bilirubin,Total 1.6 mg/dl (0.2-1.0); Est GFR (African American) 94.4 ml/min; Est GFR (Non-African American) 81.5 ml/min; Globulin 2.3 gm/dl (2.5-4.0); Total Protein 6.2 gm/dl (6.0-8.3)
[2022-07-18] MEDS: PANTOprazole 40 MG in SYRINGE 0 ML IV SCH (11:01)
[2022-07-18] MEDS: SIMVASTATIN 20 MG TAB PO SCH (11:01)
--- NOTE | 2022-07-18 13:32 | History & Physical Bridge Note ---
Date of Service July 18, 2022 History & Physical Bridge Note I have examined the patient, reviewed the History & Physical and in the interval since the performance of the History & Physical I have noted the following changes of clinical significance: no changes noted
[2022-07-18] MEDS ORDERED: ceFAZolin 2,000 MG/15 ML IV PUSH IV ONE (13:44)
[2022-07-18] MEDS ORDERED: ceFAZolin 2000MG 2,000 MG/15 ML SYR IV ONE (13:44)
[2022-07-18] MEDS ORDERED: fentaNYL citrate 100 MCG/2 ML VIAL IV PRN (13:58)
[2022-07-18] MEDS ORDERED: ATROPINE SULFATE 0.1 MG/ML 10ML SYR IV PRN (13:58)
[2022-07-18] MEDS ORDERED: ONDANSETRON INJ 2 MG/ML 2 ML VIAL IV PRN (13:58)
[2022-07-18] MEDS ORDERED: ePHEDrine sulfate 50 MG/ML AMP IV PRN (13:58)
[2022-07-18] MEDS ORDERED: BUPIVACAINE 0.5 % 5 MG/1 ML PF 10ML VIAL ONE (14:04)
[2022-07-18] MEDS ORDERED: PROPOFOL IV EMULSION 10 MG/ML 20 ML VIAL IV ONE (14:24)
[2022-07-18] MEDS ORDERED: LIDOCAINE 2% MPF LOCAL 5 ML VIAL INFIL ONE (14:24)
--- NOTE | 2022-07-18 15:26 | Electrocardiogram Report ---
Test Reason : Blood Pressure : / mmHG Vent. Rate : 078 BPM Atrial Rate : 078 BPM P-R Int : 198 ms QRS Dur : 082 ms QT Int : 362 ms P-R-T Axes : 039 010 061 degrees QTc Int : 412 ms Poor data quality, interpretation may be adversely affected Normal sinus rhythm Normal ECG When compared with ECG of 05-NOV-2021 12:43, No significant change was found Confirmed by Dm Davila ([id number]) on 07/18/2022 3:26:37 PM Referred By: REFERRED SELF Confirmed By:Dm Davila
[2022-07-18] MEDS ORDERED: ALBUMIN HUMAN 5% 12.5 GM/250 ML VIAL IV ONE (16:25)
--- NOTE | 2022-07-18 16:57 | Fluoroscopy Report ---
FL hip LT 1V CLINICAL HISTORY: Left anterior hip arthroplasty. COMPARISON STUDY: Pelvis and left hip 07/17/2022. FLUOROSCOPY TIME: 6 seconds FLUOROSCOPY IMAGES: 2 Ka, r: 0.9 mGy FINDINGS: There is a left hip hemiarthroplasty. Hardware appears intact. IMPRESSION: Fluoroscopic assistance as above. ACT 112: Negative or not required by law. Electronically signed by: Eduar Huizar M.D. 07/18/2022 4:56 PM
--- NOTE | 2022-07-18 17:29 | Anesthesiology Progress Note ---
Date of Service July 18, 2022 Anesthesia Post Procedure Vital Signs Vital Signs: Temp Pulse Pulse Resp BP BP Pulse Ox 07/18/22 17:15 73 21 122/67 100 07/18/22 17:05 74 20 104/73 100 07/18/22 16:55 37.1 C 71 22 94/60 L 100 07/18/22 13:14 37.6 C H 81 18 169/93 H 91 07/18/22 07:55 07/18/22 07:28 36.7 C 85 18 162/75 H 96 07/17/22 21:52 36.8 C 18 123/66 97 O2 Del Method O2 Flow Rate 07/18/22 17:15 Oxymask 3 07/18/22 17:05 Oxymask 4 07/18/22 16:55 Oxymask 6 07/18/22 13:14 Room Air 07/18/22 07:55 Nasal Cannula 2 07/18/22 07:28 Nasal Cannula 2 07/17/22 21:52 Room Air Pain Intensity Left Hip: Pain Intensity: 7 Transfer of Care Handoff Completed per policy Notes Mental Status: alert / awake / arousable and participated in evaluation Patient Amnestic to Procedure: Yes Nausea / Vomiting: adequately controlled Pain: adequately controlled Airway Patency, RR, SpO2: stable & adequate BP & HR: stable & adequate Hydration State: stable & adequate Neuraxial Anesthesia: was administered and sensory block is resolving Anesthetic Complications: no major complications apparent and Pt Satisfied with anesthetic care
--- NOTE | 2022-07-18 17:31 | Operative Report ---
PG Post Operative Report Pre & Post Diagnosis Operation Date: 07/18/22 08:50 Pre-Op Diagnosis: Left Displaced Femoral Neck Fracture Post-Op Diagnosis: Left Displaced Femoral Neck Fracture I identified the patient and participated in the time-out.: Yes Procedure Operation Date: 07/18/22 08:50 Actual Procedures p Left Cemented Anterior Bipolar Arthroplasty(Left) - Bo Gill DO Surgeon Bo Gill DO Pull Worker None Estimated Blood Loss 300 Findings Consistent with Post-Op Diagnosis Specimens Left femoral head Description of Procedure Implants used I used a [employer] total hip arthroplasty system with a size 12 LDFX stem, 28 mm +3.5 femoral head and a 53 mm shell, the femoral stem was cemented with Bi omet cement. Regino was brought in from his hospital room to the preoperative holding area. The operative extremity was identified and signed. He was given a preoperative antibiotic and team back to the operating room. He was given a spinal anesthetic in the operating room. He was then transferred to the OR table. He was given basic sedation. The operative leg was secured to a Puristst leg po sitioner. The hip was then prepped and draped in sterile fashion. A timeout was done and the patient and the operative extremity was properly identified. An anterior approach was used. Dissection was taken down through the fascia and the tensor muscle belly was retracted laterally and the rectus was retracted medially. The circumflex vessels were identified and ligated. The capsule was then incised and tagged for later repair. The femoral neck was then cut and the femoral head was removed. The acetabulum was exposed. Time was spent doing a complete circumferential labral release. The femoral head measured to be a size 53. A 53 trial head was used. I was happy with the overall fit. The proximal femur was then exposed. Sequential broaching up to a size 13 broach was done. Off that broach a size 28 head with a +2.5 neck was trialed with a 53 mm shell. The hip was reduced and fluoroscopic images showed anatomic alignment of the implants in acceptable length. The broach was removed. The final size 12 LDFX stem was then cemented into place with Biomet cement. Once cement had hardened a 28 mm head with a +3.5 neck and a 53 mm shell was then impacted onto the femoral stem. The hip was then reduced. Final fluoroscopic images showed anatomic alignment of the left hip. The capsule was then closed with #1 Vicryl suture. The joint was then irrigated with normal saline solution. The fascia was closed with #1 PDS suture. Skin was closed with 2-0 Vicryl, kate, and a Silverlon dressing. He was then transferred to a hospital bed and taken to the post anesthesia care unit in stable condition. He tolerated the procedure well. I attest to the content of the Intraoperative Record and any orders documented therein. Any exceptions are noted below.
[2022-07-18] MEDS ORDERED: SODIUM CHLORIDE 0.9% 1000ML 1,000 ML IV SCH (17:51)
[2022-07-18] MEDS ORDERED: Nursing to Pharmacy Communication SCH (18:15)
--- NOTE | 2022-07-18 19:48 | XRay Report ---
XR hip LT min 2V CLINICAL HISTORY: Postoperative evaluation. COMPARISON: Pelvis and left hip radiographs July 17, 2022. FINDINGS: Alignment of the left hip arthroplasty is anatomic. There is no periprosthetic fracture. T here is no unexpected radiopaque foreign body. There are skin kate. IMPRESSION: Expected findings following left hip arthroplasty. ACT 112: Negative or not required by law. Electronically signed by: George Luna M.D. 07/18/2022 7:47 PM
[2022-07-18] MEDS: ASPIRIN 81 MG ECTAB PO SCH (20:48)
[2022-07-18] MEDS: MIRTAZAPINE TAB 15 MG TAB PO SCH (20:49)
[2022-07-18] MEDS: FESOTERODINE FUMARATE PO SCH (20:49)
[2022-07-18] MEDS: traZODone HCL 100 MG TAB PO SCH (20:49)
[2022-07-18] MEDS: SODIUM CHLORIDE 5% (MURO) OP OINT 3.5 GM TUBE OP SCH (20:50)
--- NOTE | 2022-07-18 21:05 | Hospitalist Progress Note ---
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 Silva -- appreciate surgical expertise and ?need for stabilization/ARMAND - NPO w/ D5-1/2NS @ 80cc/hr - PT, OT ordered - NWB until seen by ortho - Hold ARB - Scheduled APAP, morphine for breakthrough pain - Vitamin D level in AM - Will require bisphosphonate consideration as outpatient -On 07/18, patient came back to room after surgery repair. Patient is comofortbale. resumed diet. will contiue above plan. (2) Type 2 diabetes mellitus: Plan: T2DM - A1c at 6.5% in 05/2022 - controlled with metformin - Hold home medications - q6h BSG checks while NPO - SSI for now- adjust and add basal as required (3) HTN (hypertension): Plan: HTN - Hold home ARB - Continue amlodipine when appropriate (4) Gastric ulcer: Plan: PUD - Continue PPI as IV, transition back to NPO when appropriate (5) Hyperlipemia: Plan: HLD - Continue simvastatin when appropriate (6) Insomnia: Plan: Insomnia, Depression, Anxiety Continue nightly clonazepam when appropriate -- hold for now --> Do not want to precipitate withdrawal; can given spot doses IV Ativan PRN but need to be careful with ongoing morphine therapy --> Resume when appropriate Continue mirtazapine and trazodone Plan Code: DNR/DNI - confirmed w/ pt and daughter at bedside PPX: Give 1x dose of Lovenox now, then SCDs Ortho ordered ASA BID. Dispo: MS. Anticipate patient will likely need rehab Consult: Ortho, PT OT Admission and Anticipated Discharge Date Admission Date: July 17, 2022 Subjective 86 yo male reports not having any pain. He is breathing well and is comfortable. Review of Systems Review of Systems: All systems reviewed & are unremarkable except as noted in HPI & below Physical Exam Physical Exam: General: 86-year old male who is alert, oriented, and appears in no acute distress. HEENT: NCAT. - Eyes - Sclera are white, anicteric, and without injection. - Mouth - MMM - Neck - supple, no appreciable JVD Cardiac: Normal rate and regular rhythm; S1 and S2 present with no murmurs, rubs, or gallops. Pulmonary: Good respiratory effort with symmetric expansion of the chest. No use of accessory muscles. Lungs were clear to auscultation bilaterally with no crackles or wheezes. Abdominal: Normoactive bowel sounds. Abdomen was soft, nondistended, and non- tender to palpation. Extremities: Upper and lower extremities are warm and well perfused. No peripheral edema in the lower extremities bilaterally. MSK: Mild TTP over the general region of the L greater trochanter. Strength and sensation are both in-tact in the distal lower extremities bilaterally. No clonus. Psych: Well-developed, well-nourished, appropriately dressed for occasion. Behavior is cooperative and appropriate. Affect is WNL. Insight is appropriate. Results & Data Results & Data ([facility]) Vital Signs (Past 12 Hours) Vital Signs Temp Pulse Pulse Resp BP BP Pulse Ox 07/18/22 19:50 36.8 C 92 H 18 146/73 H 94 07/18/22 18:49 36.6 C 99 H 18 166/82 H 96 07/18/22 18:29 36.6 C 86 18 148/61 H 96 07/18/22 17:50 36.6 C 85 18 150/63 H 97 07/18/22 17:25 37.1 C 79 21 146/92 H 94 07/18/22 17:15 73 21 122/67 100 07/18/22 17:05 74 20 104/73 100 07/18/22 16:55 37.1 C 71 22 94/60 L 100 07/18/22 13:14 37.6 C H 81 18 169/93 H 91 O2 Del Method O2 Flow Rate 07/18/22 19:50 Nasal Cannula 2 07/18/22 18:49 Nasal Cannula 2 07/18/22 18:29 Nasal Cannula 2 07/18/22 17:50 Room Air 07/18/22 17:25 Room Air 07/18/22 17:15 Oxymask 3 07/18/22 17:05 Oxymask 4 07/18/22 16:55 Oxymask 6 07/18/22 13:14 Room Air PG Care Time/CCT Total # of Minutes Spent Total Time Spent with Patient: Total time spent is greater than 50% in coordination of care (as documented) at patient's floor/unit and/or counseling patient: Coding Level of Care Code 83864 SUB INP/OBS CARE 2MIN Diagnoses Fracture of femoral neck, left S72.002A Type 2 diabetes mellitus E11.9 Diabetes mellitus complication status: without complication Diabetes mellitus intermodal truck driver insulin use: unspecified group home insulin use status HTN (hypertension) I10 Gastric ulcer K25.9 Hyperlipemia E78.5 Insomnia G47.00 (1) Type 2 diabetes mellitus Diabetes mellitus complication status: without complication Diabetes mellitus group home insulin use: unspecified intermodal truck driver insulin use status Qualified Code(s): E11.9 - Type 2 diabetes mellitus without complications
[2022-07-18] MEDS: clonazePAM 1 MG TAB PO SCH (21:20)
[2022-07-18] MEDS: ceFAZolin 1000MG 1,000 MG/7.5 ML SYR IV SCH (22:31)
[2022-07-19] MEDS: ACETAMINOPHEN 1,000 MG/100 ML VIAL IV SCH ×3 (01:25→18:15)
[2022-07-19] MEDS: ceFAZolin 1000MG 1,000 MG/7.5 ML SYR IV SCH (06:31)
--- NOTE | 2022-07-19 08:03 | Orthopedic Progress Note ---
Date of Service July 19, 2022 Assessment & Plan (1) Status post left hip replacement: Overall he is doing very well. He is not having much pain in the left hip. He is on aspirin for DVT prophylaxis for 6 weeks. He will be seen by physical therapy today for ambulation and range of motion exercises. If he is very slow to get out of bed then we can always switch his DVT prophylaxis to Lovenox if needed. Full orthopedic discharge instructions were placed in the discharge summary. Wei Lacy was seen and examined at bedside this morning. Overall he seems to be doing fairly well. I was just waking him up when I came in the room. He does not seem to be having much pain in the hip. He has no complaints.. Review of Systems All systems reviewed & are unremarkable except as noted in HPI & below. Physical Exam On physical examination of the left hip, the dressing is clean and dry. His legs out in full extension.. Results & Data Results & Data Laboratory Results . Diagnostic Findings Postoperative x-rays of the left hip show the prosthesis to be in good alignment without any evidence of fracture, education, or loosening.. PG Care Time/CCT Total # of Minutes Spent Total Time Spent with Patient: Total time spent is greater than 50% in coordination of care (as documented) at patient's floor/unit and/or counseling patient: Coding Level of Care Code 30537 Post Operative Follow-Up Diagnoses Status post left hip replacement Z96.642
[2022-07-19] MEDS: CHOLECALCIFEROL 1,000 UNITS 25 MCG TAB PO SCH (08:30)
[2022-07-19] MEDS: amLODIPine BESYLATE 5 MG TAB PO SCH (08:30)
[2022-07-19] MEDS: metFORMIN HCL 500 MG TAB PO SCH (08:31)
[2022-07-19] MEDS: ASPIRIN 81 MG ECTAB PO SCH ×2 (08:31→20:19)
[2022-07-19] MEDS: prednisoLONE acetate 1% OP SUSP 5 ML BTL OPB SCH (08:31)
[2022-07-19 08:42] LABS: Basophils # (auto) 0.02 K/uL (0-0.2); Basophils % (auto) 0.2 %; Eosinophils # (auto) 0.17 K/uL (0-0.50); Eosinophils % (auto) 1.7 %; Hematocrit (blood only) 36.6 % (42.0-52.0); Hemoglobin 11.9 g/dl (14.0-18.0); Immature Granulocytes # (auto) 0.05 K/uL (0.01-0.20); Immature Granulocytes % (auto) 0.5 %; Lymphocytes % (auto) 7.1 %; Mean Corpuscular Hemoglobin 27.6 pg (25.0-34.0); Mean Corpuscular Hgb Conc 32.5 g/dL (32.0-36.0); Mean Corpuscular Volume 84.9 fL (80.0-100.0); Monocytes # (auto) 0.83 K/uL (0.11-0.59); Monocytes % (auto) 8.4 %; Neutrophils % (auto) 82.1 %; Platelet Count 190 K/uL (130-400); RDW Coefficient of Variation 13.7 % (11.5-14.5); RDW Standard Deviation 42.7 fL (36.4-46.3); Red Blood Count 4.31 M/uL (4.70-6.10); White Blood Count 9.87 K/ul (4.8-10.8)
[2022-07-19] MEDS: INSULIN ASPART PER UNIT SC SCH ×4 (09:00→20:40)
--- NOTE | 2022-07-19 10:02 | Hospitalist Progress Note ---
Date of Service July 19, 2022 Assessment & Plan (1) Fracture of femoral neck, left: Plan: Acute Fragility Fracture of L Femoral Neck s/p mechanical fall. 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 Silva -- surgical correction 07/18/22 will need rehab at d/c . (2) Type 2 diabetes mellitus: Plan: T2DM chronic stable - A1c at 6.5% in 05/2022 - controlled with metformin - Hold home medications - q6h BSG checks while NPO - SSI for now- adjust and add basal as required monitor for hypoglycemia (3) HTN (hypertension): Plan: HTN chronic stable - Hold home ARB - Continue amlodipine when appropriate (4) Gastric ulcer: Plan: PUD chronic and stable - Continue PPI as IV, transition back to NPO when appropriate (5) Insomnia: Plan: Insomnia, Depression, Anxiety restarted pm clonazepam --> Do not want to precipitate withdrawal; can given spot doses IV Ativan PRN but need to be careful with ongoing morphine therapy Continue mirtazapine and trazodone Plan Code: DNR/DNI - confirmed w/ pt and daughter on admission Ortho ordered ASA BID., If patient at rehab may consider Lovenox at rehab Admission and Anticipated Discharge Date Admission Date: July 17, 2022 Subjective Patient is doing well status post left anterior hip replacement. Does have modest acute blood loss anemia postoperatively Noted to have a staph JAROD urinary tract infection present on admission however it is pansensitive MSSA we will institute oral amoxicillin as the patient did receive perioperative antibiotics already Likely will need rehab at time of discharge Physical Exam Physical Exam: Awake alert and appropriate. Surgical site is clean dry and intact there is very little bruising or induration his distal extremities with good sensation intact certainly and strength needs to return Cardiac exam is regular lungs are diminished but clear Results & Data Results & Data ([facility]) Vital Signs (Past 12 Hours) Vital Signs Temp Pulse Resp BP Pulse Ox O2 Del Method O2 Flow Rate 07/19/22 07:38 98.6 F 79 20 122/72 98 Nasal Cannula 2 07/19/22 06:00 78 18 95 Nasal Cannula 07/19/22 04:34 92 Nasal Cannula 07/19/22 04:31 99.3 F 80 18 136/77 90 Room Air 07/18/22 23:50 97.9 F 82 18 145/81 H 95 Nasal Cannula 2 Diagnostic Findings CBC was reviewed Chemistries reviewed Vitamin D level reviewed and appropriate PG Care Time/CCT Total # of Minutes Spent Total Time Spent with Patient: Total time spent is greater than 50% in coordination of care (as documented) at patient's floor/unit and/or counseling patient: Coding Level of Care Code 15685 SUB INP/OBS CARE 2/35MIN Diagnoses Fracture of femoral neck, left S72.002A Type 2 diabetes mellitus E11.9 Diabetes mellitus complication status: without complication Diabetes mellitus assisted insulin use: unspecified assisted insulin use status HTN (hypertension) I10 Gastric ulcer K25.9 Insomnia G47.00 (1) Type 2 diabetes mellitus Diabetes mellitus complication status: without complication Diabetes mellitus exterminator helper insulin use: unspecified exterminator helper insulin use status Qualified Code(s): E11.9 - Type 2 diabetes mellitus without complications
[2022-07-19 11:25] LABS: BUN Creatinine Ratio 22.1 (10-20); Calcium 8.5 mg/dl (8.5-10.1); Creatinine Clr Calc Pharmacy 64.2 ml/min; Est GFR (African American) 93.9 ml/min; Potassium 4.1 mmol/L (3.5-5.1)
[2022-07-19] MEDS: PANTOprazole 40 MG in SYRINGE 0 ML IV SCH (12:06)
[2022-07-19] MEDS: SIMVASTATIN 20 MG TAB PO SCH (12:07)
[2022-07-19] MEDS: MULTIVITAMIN TAB PO SCH (12:07)
[2022-07-19] MEDS: LOSARTAN POTASSIUM 50 MG TAB PO SCH (12:07)
--- NOTE | 2022-07-19 18:29 | Hospitalist Progress Note ---
Date of Service July 19, 2022 Assessment & Plan (1) Fracture of femoral neck, left: Plan: Acute Fragility Fracture of L Femoral Neck s/p mechanical fall. 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 Silva -- surgical correction 07/18/22 will need rehab at d/c . (2) Type 2 diabetes mellitus: Plan: T2DM chronic stable - A1c at 6.5% in 05/2022 - controlled with metformin - Hold home medications - q6h BSG checks while NPO - SSI for now- adjust and add basal as required monitor for hypoglycemia (3) HTN (hypertension): Plan: HTN chronic stable - Hold home ARB - Continue amlodipine when appropriate (4) Gastric ulcer: Plan: PUD chronic and stable - Continue PPI as IV, transition back to NPO when appropriate (5) Insomnia: Plan: Insomnia, Depression, Anxiety restarted pm clonazepam --> Do not want to precipitate withdrawal; can given spot doses IV Ativan PRN but need to be careful with ongoing morphine therapy Continue mirtazapine and trazodone (6) Urinary tract infection: Plan: Patient on them MSSA in his urine on presentation. He is given perioperative Ancef. He will continue Amoxil likely for 5-day total course as this may have a had a play in his fall if it influence some encephalopathy prior to presentation Plan Code: DNR/DNI - confirmed w/ pt and daughter on admission Ortho ordered ASA BID., If patient at rehab may consider Lovenox at rehab Admission and Anticipated Discharge Date Admission Date: July 17, 2022 Results & Data Results & Data ([facility]) Vital Signs (Past 12 Hours) Vital Signs Temp Pulse Resp BP Pulse Ox O2 Del Method O2 Flow Rate 07/19/22 14:02 98.1 F 99 H 18 126/73 94 Nasal Cannula 2 07/19/22 12:15 98.8 F 97 H 18 129/72 94 Nasal Cannula 2 07/19/22 07:38 98.6 F 79 20 122/72 98 Nasal Cannula 2 PG Care Time/CCT Total # of Minutes Spent Total Time Spent with Patient: Total time spent is greater than 50% in coordination of care (as documented) at patient's floor/unit and/or counseling patient: Coding Level of Care Code None Diagnoses Fracture of femoral neck, left S72.002A Type 2 diabetes mellitus E11.9 Diabetes mellitus complication status: without complication Diabetes mellitus long term acute care registered nurse insulin use: unspecified residential insulin use status HTN (hypertension) I10 Gastric ulcer K25.9 Insomnia G47.00 Urinary tract infection N39.0 (1) Type 2 diabetes mellitus Diabetes mellitus complication status: without complication Diabetes mellitus residential insulin use: unspecified long term acute care registered nurse insulin use status Qualified Code(s): E11.9 - Type 2 diabetes mellitus without complications
[2022-07-19] MEDS: AMOXICILLIN 500 MG CAP PO SCH (20:18)
[2022-07-19] MEDS: FESOTERODINE FUMARATE PO SCH (20:19)
[2022-07-19] MEDS: SODIUM CHLORIDE 5% (MURO) OP OINT 3.5 GM TUBE OP SCH (20:20)
[2022-07-19] MEDS: traZODone HCL 100 MG TAB PO SCH (21:36)
[2022-07-19] MEDS: clonazePAM 1 MG TAB PO SCH (21:36)
[2022-07-19] MEDS: MIRTAZAPINE TAB 15 MG TAB PO SCH (21:36)
[2022-07-20] MEDS: ACETAMINOPHEN 1,000 MG/100 ML VIAL IV SCH (02:23)
--- NOTE | 2022-07-20 07:24 | Hospitalist Progress Note ---
Date of Service July 20, 2022 Assessment & Plan (1) Fracture of femoral neck, left: Plan: Acute Fragility Fracture of L Femoral Neck s/p mechanical fall. 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 Silva -- surgical correction 07/18/22 will need rehab at d/c . (2) Type 2 diabetes mellitus: Plan: T2DM chronic stable - A1c at 6.5% in 05/2022 - controlled with metformin - Hold home medications - q6h BSG checks while NPO - SSI for now- adjust and add basal as required monitor for hypoglycemia (3) HTN (hypertension): Plan: HTN chronic stable - Hold home ARB - Continue amlodipine when appropriate (4) Gastric ulcer: Plan: PUD chronic and stable - Continue PPI as IV, transition back to NPO when appropriate (5) Insomnia: Plan: Insomnia, Depression, Anxiety restarted pm clonazepam --> No withdrawal is noted Continue mirtazapine and trazodone (6) Urinary tract infection: Plan: Patient on them MSSA in his urine on presentation. He is given perioperative Ancef. He will continue Augmentin likely for 5-day total course as this may have a had a play in his fall if it influence some encephalopathy prior to presentation Plan Code: DNR/DNI - confirmed w/ pt and daughter on admission Ortho ordered ASA BID., If patient at rehab may consider Lovenox at rehab Admission and Anticipated Discharge Date Admission Date: July 17, 2022 Subjective Patient is doing well status post left anterior hip replacement. Noted to have a staph urinary tract infection present on admission however it is pansensitive MSSA we will institute oral augmentin as the patient did receive perioperative antibiotics already Likely will need rehab at time of discharge Physical Exam Physical Exam: Patient awake alert no complaints or problems at this time was ambulating in the hallway Exam is regular without murmurs lungs are clear without wheeze or crackles extremities are with good peripheral pulses and capillary refill Results & Data Results & Data ([facility]) Vital Signs (Past 12 Hours) Vital Signs Temp Pulse Resp BP Pulse Ox O2 Del Method 07/19/22 21:57 98.4 F 84 18 124/71 93 Room Air 07/19/22 19:46 98.6 F 90 18 125/76 92 Room Air Diagnostic Findings Will order chemistry and CBC for 07/21/2022 PG Care Time/CCT Total # of Minutes Spent Total Time Spent with Patient: Total time spent is greater than 50% in coordination of care (as documented) at patient's floor/unit and/or counseling patient: Coding Level of Care Code 63890 SUB INP/OBS CARE 2/35MIN Diagnoses Fracture of femoral neck, left S72.002A Type 2 diabetes mellitus E11.9 Diabetes mellitus complication status: without complication Diabetes mellitus care home insulin use: unspecified terminal gauger supervisor insulin use status HTN (hypertension) I10 Gastric ulcer K25.9 Insomnia G47.00 Urinary tract infection N39.0 (1) Type 2 diabetes mellitus Diabetes mellitus complication status: without complication Diabetes mellitus terminal gauger supervisor insulin use: unspecified terminal gauger supervisor insulin use status Qualified Code(s): E11.9 - Type 2 diabetes mellitus without complications
[2022-07-20] MEDS: ASPIRIN 81 MG ECTAB PO SCH ×2 (08:20→20:06)
[2022-07-20] MEDS: AMOXICILLIN 500 MG CAP PO SCH (08:20)
[2022-07-20] MEDS: amLODIPine BESYLATE 5 MG TAB PO SCH (08:20)
[2022-07-20] MEDS: metFORMIN HCL 500 MG TAB PO SCH (08:20)
[2022-07-20] MEDS: CHOLECALCIFEROL 1,000 UNITS 25 MCG TAB PO SCH (08:21)
[2022-07-20] MEDS: prednisoLONE acetate 1% OP SUSP 5 ML BTL OPB SCH (08:21)
[2022-07-20] MEDS: INSULIN ASPART PER UNIT SC SCH ×4 (08:56→21:31)
[2022-07-20] MEDS: ACETAMINOPHEN 500 MG TAB PO SCH ×2 (10:04→18:18)
[2022-07-20] MEDS: SIMVASTATIN 20 MG TAB PO SCH (12:04)
[2022-07-20] MEDS: AMOXICILLIN/CLAVULANATE 500 MG TAB PO SCH ×2 (12:05→20:09)
[2022-07-20] MEDS: PANTOprazole 40 MG in SYRINGE 0 ML IV SCH (12:05)
[2022-07-20] MEDS: MULTIVITAMIN TAB PO SCH (12:05)
[2022-07-20] MEDS: LOSARTAN POTASSIUM 50 MG TAB PO SCH (12:05)
--- NOTE | 2022-07-20 13:30 | Orthopedic Progress Note ---
Date of Service July 20, 2022 Assessment & Plan (1) Status post left hip replacement: Overall he is doing well and happy with his progress. He is not having too much pain in the left hip. He has been doing really well with physical therapy. He is on aspirin for DVT prophylaxis. He is orthopedically stable for discharge to rehab when medically ready. Full orthopedic discharge instructions were placed in the discharge summary. He will follow-up with orthopedics in 2 weeks. Wei Lacy was seen and examined at bedside this morning. Overall he is doing very well. He sitting up in a chair. He is not having much pain in the left hip. Is been working well with physical therapy. He has no complaints.. Review of Systems All systems reviewed & are unremarkable except as noted in HPI & below. Physical Exam On physical examination of the left hip, the dressing is clean and dry. His leg lengths are equal.. Results & Data Results & Data Laboratory Results . Diagnostic Findings . PG Care Time/CCT Total # of Minutes Spent Total Time Spent with Patient: Total time spent is greater than 50% in coordination of care (as documented) at patient's floor/unit and/or counseling patient: Coding Level of Care Code 09436 Post Operative Follow-Up Diagnoses Status post left hip replacement Z96.642
[2022-07-20] MEDS: oxyCODONE HCL IR 5 MG TAB (IMMEDIATE RELEASE) PO PRN (14:41)
[2022-07-20] MEDS: clonazePAM 1 MG TAB PO SCH (20:07)
[2022-07-20] MEDS: MIRTAZAPINE TAB 15 MG TAB PO SCH (20:07)
[2022-07-20] MEDS: traZODone HCL 100 MG TAB PO SCH (20:07)
[2022-07-20] MEDS: FESOTERODINE FUMARATE PO SCH (20:07)
[2022-07-20] MEDS: SODIUM CHLORIDE 5% (MURO) OP OINT 3.5 GM TUBE OP SCH (20:08)
[2022-07-21] MEDS: ACETAMINOPHEN 500 MG TAB PO SCH ×3 (02:48→18:23)
[2022-07-21] MEDS: oxyCODONE HCL IR 5 MG TAB (IMMEDIATE RELEASE) PO PRN ×3 (07:45→22:38)
[2022-07-21] MEDS: AMOXICILLIN/CLAVULANATE 500 MG TAB PO SCH ×2 (07:45→20:57)
[2022-07-21] MEDS: amLODIPine BESYLATE 5 MG TAB PO SCH (07:46)
[2022-07-21] MEDS: ASPIRIN 81 MG ECTAB PO SCH ×2 (07:46→20:57)
[2022-07-21] MEDS: CHOLECALCIFEROL 1,000 UNITS 25 MCG TAB PO SCH (07:47)
[2022-07-21] MEDS: prednisoLONE acetate 1% OP SUSP 5 ML BTL OPB SCH (07:47)
[2022-07-21 08:28] LABS: Hematocrit (blood only) 33.1 % (42.0-52.0); Mean Corpuscular Hgb Conc 33.2 g/dL (32.0-36.0); Mean Corpuscular Volume 84.2 fL (80.0-100.0); Mean Platelet Volume 9.5 fL (9.4-12.4); Platelet Count 243 K/uL (130-400); RDW Coefficient of Variation 13.7 % (11.5-14.5); RDW Standard Deviation 42.3 fL (36.4-46.3); Red Blood Count 3.93 M/uL (4.70-6.10); White Blood Count 10.85 K/ul (4.8-10.8)
--- NOTE | 2022-07-21 08:29 | Hospitalist Progress Note ---
Date of Service July 21, 2022 Assessment & Plan (1) Fracture of femoral neck, left: Plan: Acute Fragility Fracture of L Femoral Neck s/p mechanical fall. 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 Silva -- surgical correction 07/18/22 will need rehab at d/c . (2) Type 2 diabetes mellitus: Plan: T2DM chronic stable - A1c at 6.5% in 05/2022 - controlled with metformin - Hold home medications - q6h BSG checks while NPO - SSI for now- adjust and add basal as required monitor for hypoglycemia (3) HTN (hypertension): Plan: HTN chronic stable - Hold home ARB - Continue amlodipine when appropriate (4) Gastric ulcer: Plan: PUD chronic and stable - Continue PPI as IV, transition back to NPO when appropriate (5) Insomnia: Plan: Insomnia, Depression, Anxiety restarted pm clonazepam --> No withdrawal is noted Continue mirtazapine and trazodone (6) Urinary tract infection: Plan: Patient on them MSSA in his urine on presentation. He is given perioperative Ancef. He will continue Augmentin likely for 5-day total course as this may have a had a play in his fall if it influence some encephalopathy prior to presentation Plan Code: DNR/DNI - confirmed w/ pt and daughter on admission Ortho ordered ASA BID., If patient at rehab may consider Lovenox at rehab Admission and Anticipated Discharge Date Admission Date: July 17, 2022 Subjective Patient is doing well status post left anterior hip replacement. Noted to have a staph urinary tract infection present on admission however it is pansensitive MSSA we will institute oral augmentin as the patient did receive perioperative antibiotics already Likely will need rehab at time of discharge Physical Exam Physical Exam: Patient awake alert no complaints or problems at this time was ambulating in the hallway Exam is regular without murmurs lungs are clear without wheeze or crackles extremities are with good peripheral pulses and capillary refill Results & Data Results & Data ([facility]) Vital Signs (Past 12 Hours) Vital Signs Temp Pulse Resp BP BP Pulse Ox O2 Del Method 07/21/22 07:44 93 Room Air 07/21/22 07:32 98.2 F 84 16 148/80 H 91 Room Air 07/20/22 21:41 97.7 F 79 17 113/65 95 Room Air Laboratory Results Reviewed CBC evidence of acute blood loss anemia Reviewed chemistry PG Care Time/CCT Total # of Minutes Spent Total Time Spent with Patient: Total time spent is greater than 50% in coordination of care (as documented) at patient's floor/unit and/or counseling patient: Coding Level of Care Code 28698 SUB INP/OBS CARE 07/11MIN Diagnoses Fracture of femoral neck, left S72.002A Type 2 diabetes mellitus E11.9 Diabetes mellitus complication status: without complication Diabetes mellitus skilled nursing insulin use: unspecified skilled nursing insulin use status HTN (hypertension) I10 Gastric ulcer K25.9 Insomnia G47.00 Urinary tract infection N39.0 (1) Type 2 diabetes mellitus Diabetes mellitus complication status: without complication Diabetes mellitus skilled nursing insulin use: unspecified skilled nursing insulin use status Qualified Code(s): E11.9 - Type 2 diabetes mellitus without complications
[2022-07-21 08:54] LABS: BUN Creatinine Ratio 40.2 (10-20); Calcium 9.9 mg/dl (8.5-10.1); Creatinine Clr Calc Pharmacy 56.8 ml/min; Est GFR (African American) 89.3 ml/min; Est GFR (Non-African American) 77.1 ml/min; Potassium 4.1 mmol/L (3.5-5.1)
[2022-07-21] MEDS: INSULIN ASPART PER UNIT SC SCH ×4 (09:22→21:10)
[2022-07-21] MEDS: metFORMIN HCL 500 MG TAB PO SCH (09:22)
[2022-07-21] MEDS: DOCUSATE SODIUM/SENNA 50/8.6MG TAB PO SCH (09:22)
[2022-07-21] MEDS: MULTIVITAMIN TAB PO SCH (11:54)
[2022-07-21] MEDS: SIMVASTATIN 20 MG TAB PO SCH (11:54)
[2022-07-21] MEDS: PANTOprazole 40 MG in SYRINGE 0 ML IV SCH (11:54)
[2022-07-21] MEDS: LOSARTAN POTASSIUM 50 MG TAB PO SCH (11:54)
[2022-07-21] MEDS: clonazePAM 1 MG TAB PO SCH (20:57)
[2022-07-21] MEDS: SODIUM CHLORIDE 5% (MURO) OP OINT 3.5 GM TUBE OP SCH (20:57)
[2022-07-21] MEDS: MIRTAZAPINE TAB 15 MG TAB PO SCH (20:57)
[2022-07-21] MEDS: traZODone HCL 100 MG TAB PO SCH (20:57)
[2022-07-21] MEDS: FESOTERODINE FUMARATE PO SCH (20:57)
[2022-07-22] MEDS: ACETAMINOPHEN 500 MG TAB PO SCH ×3 (02:45→17:53)
[2022-07-22] MEDS: AMOXICILLIN/CLAVULANATE 500 MG TAB PO SCH ×2 (09:12→21:20)
[2022-07-22] MEDS: amLODIPine BESYLATE 5 MG TAB PO SCH (09:12)
[2022-07-22] MEDS: metFORMIN HCL 500 MG TAB PO SCH (09:12)
[2022-07-22] MEDS: CHOLECALCIFEROL 1,000 UNITS 25 MCG TAB PO SCH (09:12)
[2022-07-22] MEDS: prednisoLONE acetate 1% OP SUSP 5 ML BTL OPB SCH (09:13)
[2022-07-22] MEDS: DOCUSATE SODIUM/SENNA 50/8.6MG TAB PO SCH (09:13)
[2022-07-22] MEDS: ASPIRIN 81 MG ECTAB PO SCH ×2 (09:13→21:20)
[2022-07-22] MEDS: INSULIN ASPART PER UNIT SC SCH ×4 (09:21→21:28)
[2022-07-22] MEDS: oxyCODONE HCL IR 5 MG TAB (IMMEDIATE RELEASE) PO PRN ×2 (09:36→15:25)
[2022-07-22] MEDS: LOSARTAN POTASSIUM 50 MG TAB PO SCH (11:55)
[2022-07-22] MEDS: MULTIVITAMIN TAB PO SCH (11:55)
[2022-07-22] MEDS: PANTOprazole 40 MG in SYRINGE 0 ML IV SCH (11:56)
[2022-07-22] MEDS: SIMVASTATIN 20 MG TAB PO SCH (11:56)
--- NOTE | 2022-07-22 14:22 | Hospitalist Progress Note ---
Date of Service July 22, 2022 Assessment & Plan (1) Fracture of femoral neck, left: Plan: Acute Fragility Fracture of L Femoral Neck s/p mechanical fall. 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 Silva -- surgical correction 07/18/22 will need rehab at d/c . (2) Type 2 diabetes mellitus: Plan: T2DM chronic stable - A1c at 6.5% in 05/2022 - controlled with metformin - Hold home medications - q6h BSG checks while NPO - SSI as required monitor for hypoglycemia (3) HTN (hypertension): Plan: HTN chronic stable - Hold home ARB - Continue amlodipine when appropriate (4) Gastric ulcer: Plan: PUD chronic and stable - Continue PPI as IV, transition back to NPO when appropriate (5) Insomnia: Plan: Insomnia, Depression, Anxiety restarted pm clonazepam --> No withdrawal is noted Continue mirtazapine and trazodone (6) Urinary tract infection: Plan: Patient on them MSSA in his urine on presentation. He is given perioperative Ancef. He will continue Augmentin likely for 5-day total course as this may have a had a play in his fall if it influence some encephalopathy prior to presentation Plan Code: DNR/DNI - confirmed w/ pt and daughter on admission Ortho ordered ASA BID., If patient at rehab may consider Lovenox at rehab Admission and Anticipated Discharge Date Admission Date: July 17, 2022 Subjective Patient is doing well status post left anterior hip replacement. Noted to have a staph urinary tract infection present on admission however it is pansensitive MSSA we will institute oral augmentin as the patient did receive perioperative antibiotics already Likely will need rehab at time of discharge Physical Exam Physical Exam: Patient awake alert no complaints or problems at this time was ambulating in the hallway Exam is regular without murmurs lungs are clear without wheeze or crackles extremities are with good peripheral pulses and capillary refill Results & Data Results & Data ([facility]) Vital Signs (Past 12 Hours) Vital Signs Temp Pulse Resp BP BP Pulse Ox O2 Del Method 07/22/22 11:55 112/72 07/22/22 11:30 96 Room Air 07/22/22 08:35 Room Air 07/22/22 07:06 98.1 F 76 16 156/76 H 95 Nasal Cannula O2 Flow Rate 07/22/22 11:55 07/22/22 11:30 07/22/22 08:35 07/22/22 07:06 2 PG Care Time/CCT Total # of Minutes Spent Total Time Spent with Patient: Total time spent is greater than 50% in coordination of care (as documented) at patient's floor/unit and/or counseling patient: Coding Level of Care Code 05919 SUB INP/OBS CARE 07/11MIN Diagnoses Fracture of femoral neck, left S72.002A Type 2 diabetes mellitus E11.9 Diabetes mellitus complication status: without complication 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
[2022-07-22] MEDS: clonazePAM 1 MG TAB PO SCH (21:20)
[2022-07-22] MEDS: SODIUM CHLORIDE 5% (MURO) OP OINT 3.5 GM TUBE OP SCH (21:20)
[2022-07-22] MEDS: MIRTAZAPINE TAB 15 MG TAB PO SCH (21:20)
[2022-07-22] MEDS: traZODone HCL 100 MG TAB PO SCH (21:20)
[2022-07-22] MEDS: FESOTERODINE FUMARATE PO SCH (21:20)
[2022-07-23] MEDS: ACETAMINOPHEN 500 MG TAB PO SCH ×3 (02:46→18:10)
[2022-07-23] MEDS: metFORMIN HCL 500 MG TAB PO SCH (08:03)
[2022-07-23] MEDS: CHOLECALCIFEROL 1,000 UNITS 25 MCG TAB PO SCH (08:03)
[2022-07-23] MEDS: DOCUSATE SODIUM/SENNA 50/8.6MG TAB PO SCH (08:03)
[2022-07-23] MEDS: amLODIPine BESYLATE 5 MG TAB PO SCH (08:03)
[2022-07-23] MEDS: prednisoLONE acetate 1% OP SUSP 5 ML BTL OPB SCH (08:04)
[2022-07-23] MEDS: ASPIRIN 81 MG ECTAB PO SCH ×2 (08:04→21:50)
[2022-07-23] MEDS: AMOXICILLIN/CLAVULANATE 500 MG TAB PO SCH ×2 (08:05→21:49)
[2022-07-23] MEDS: oxyCODONE HCL IR 5 MG TAB (IMMEDIATE RELEASE) PO PRN ×3 (08:51→22:01)
[2022-07-23] MEDS: INSULIN ASPART PER UNIT SC SCH ×4 (09:44→21:47)
[2022-07-23] MEDS: LOSARTAN POTASSIUM 50 MG TAB PO SCH (11:13)
[2022-07-23] MEDS: PANTOprazole 40 MG in SYRINGE 0 ML IV SCH (11:13)
[2022-07-23] MEDS: SIMVASTATIN 20 MG TAB PO SCH (11:13)
[2022-07-23] MEDS: MULTIVITAMIN TAB PO SCH (11:13)
--- NOTE | 2022-07-23 15:43 | Hospitalist Progress Note ---
Date of Service July 23, 2022 Assessment & Plan (1) Fracture of femoral neck, left: Plan: Acute Fragility Fracture of L Femoral Neck s/p mechanical fall. 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 Silva -- surgical correction 07/18/22 will need rehab at d/c . Pain control with oral medications and localized ice (2) Type 2 diabetes mellitus: Plan: T2DM chronic stable - A1c at 6.5% in 05/2022 - controlled with metformin - Hold home medications - q6h BSG checks while NPO - SSI as required monitor for hypoglycemia (3) HTN (hypertension): Plan: HTN chronic stable - Hold home ARB - Continue amlodipine when appropriate (4) Gastric ulcer: Plan: PUD chronic and stable - Continue PPI (5) Insomnia: Plan: Insomnia, Depression, Anxiety restarted pm clonazepam --> No withdrawal is noted Continue mirtazapine and trazodone (6) Urinary tract infection: Plan: Patient on them MSSA in his urine on presentation. He is given perioperative Ancef. He will continue Augmentin likely for 5-day total course as this may have a had a play in his fall if it influence some encephalopathy prior to presentation Plan Code: DNR/DNI - confirmed w/ pt and daughter on admission Ortho ordered ASA BID., If patient at rehab may consider Lovenox at rehab Admission and Anticipated Discharge Date Admission Date: July 17, 2022 Subjective Patient is doing well status post left anterior hip replacement. On 07/23/2022 having slightly increased pain Noted to have a staph urinary tract infection present on admission however it is pansensitive MSSA we will institute oral augmentin as the patient did receive perioperative antibiotics already last dose will be 07/23/2022 will need rehab at time of discharge Physical Exam Physical Exam: Patient awake alert increased left hip pain after ambulation Exam is regular without murmurs lungs are clear without wheeze or crackles extremities are with good peripheral pulses and capillary refill Surgical site does not have any increased induration fluctuance tenderness or warmth Results & Data Results & Data ([facility]) Vital Signs (Past 12 Hours) Vital Signs Temp Pulse Resp BP BP Pulse Ox O2 Del Method 07/23/22 14:42 98.8 F 76 16 105/51 L 92 Room Air 07/23/22 13:16 95 07/23/22 08:35 90 18 133/78 93 Room Air 07/23/22 07:51 98.1 F 82 18 152/82 H 95/53 L 91 Room Air PG Care Time/CCT Total # of Minutes Spent Total Time Spent with Patient: Total time spent is greater than 50% in coordination of care (as documented) at patient's floor/unit and/or counseling patient: Coding Level of Care Code 62487 SUB INP/OBS CARE 235MIN Diagnoses Fracture of femoral neck, left S72.002A Type 2 diabetes mellitus E11.9 Diabetes mellitus complication status: without complication Diabetes mellitus exterminator termite insulin use: unspecified [facility] insulin use status HTN (hypertension) I10 Gastric ulcer K25.9 Insomnia G47.00 Urinary tract infection N39.0 (1) Type 2 diabetes mellitus Diabetes mellitus complication status: without complication Diabetes mellitus [facility] insulin use: unspecified exterminator termite insulin use status Qualified Code(s): E11.9 - Type 2 diabetes mellitus without complications
[2022-07-23] MEDS: FESOTERODINE FUMARATE PO SCH (21:49)
[2022-07-23] MEDS: SODIUM CHLORIDE 5% (MURO) OP OINT 3.5 GM TUBE OP SCH (21:50)
[2022-07-23] MEDS: MIRTAZAPINE TAB 15 MG TAB PO SCH (21:50)
[2022-07-23] MEDS: traZODone HCL 100 MG TAB PO SCH (21:51)
[2022-07-23] MEDS: clonazePAM 1 MG TAB PO SCH (21:56)
[2022-07-24] MEDS: ACETAMINOPHEN 500 MG TAB PO SCH ×3 (03:34→19:20)
[2022-07-24] MEDS: DOCUSATE SODIUM/SENNA 50/8.6MG TAB PO SCH (08:15)
[2022-07-24] MEDS: ASPIRIN 81 MG ECTAB PO SCH ×2 (08:15→21:05)
[2022-07-24] MEDS: CHOLECALCIFEROL 1,000 UNITS 25 MCG TAB PO SCH (08:15)
[2022-07-24] MEDS: AMOXICILLIN/CLAVULANATE 500 MG TAB PO SCH ×2 (08:15→21:05)
[2022-07-24] MEDS: amLODIPine BESYLATE 5 MG TAB PO SCH (08:15)
[2022-07-24] MEDS: prednisoLONE acetate 1% OP SUSP 5 ML BTL OPB SCH (08:16)
[2022-07-24] MEDS: metFORMIN HCL 500 MG TAB PO SCH (08:17)
[2022-07-24] MEDS: PANTOprazole 40 MG TAB PO SCH (09:01)
[2022-07-24] MEDS: INSULIN ASPART PER UNIT SC SCH ×4 (09:35→21:00)
[2022-07-24] MEDS: oxyCODONE HCL IR 5 MG TAB (IMMEDIATE RELEASE) PO PRN ×2 (09:39→17:25)
--- NOTE | 2022-07-24 12:08 | Orthopedic Progress Note ---
Date of Service July 24, 2022 Assessment & Plan (1) Status post left hip replacement: Overall he is doing fairly well. He is not having too much pain in the hip. The nursing staff can remove the Silverlon dressing and leave the kate open to air today if it is not draining. He can be weight-bear as tolerated. He is orthopedically stable for discharge when medically ready. Full orthopedic discharge instructions were placed in the discharge summary. He will follow-up with orthopedics in 2 weeks. Wei Lacy was seen and examined at bedside this morning. Overall is doing okay. Is not having too much pain in the left hip. He has been working well with physical therapy and has been ambulating. He is currently awaiting placement.. Review of Systems All systems reviewed & are unremarkable except as noted in HPI & below. Physical Exam On physical examination of the left hip, the Silverlon dressing still in place. This should be changed today. He is neurovascular intact.. Results & Data Results & Data Laboratory Results . Diagnostic Findings . PG Care Time/CCT Total # of Minutes Spent Total Time Spent with Patient: Total time spent is greater than 50% in coordination of care (as documented) at patient's floor/unit and/or counseling patient: Coding Level of Care Code 94176 Post Operative Follow-Up Diagnoses Status post left hip replacement Z96.642
[2022-07-24] MEDS: MULTIVITAMIN TAB PO SCH (12:39)
[2022-07-24] MEDS: SIMVASTATIN 20 MG TAB PO SCH (12:40)
[2022-07-24] MEDS: LOSARTAN POTASSIUM 50 MG TAB PO SCH (12:40)
--- NOTE | 2022-07-24 16:15 | Hospitalist Progress Note ---
Date of Service July 24, 2022 Assessment & Plan (1) Fracture of femoral neck, left: Plan: Acute Fragility Fracture of L Femoral Neck s/p mechanical fall. 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 Silva -- surgical correction 07/18/22 will need rehab at d/c . Pain control with oral medications and localized ice (2) Type 2 diabetes mellitus: Plan: T2DM chronic stable - A1c at 6.5% in 05/2022 - controlled with metformin - Hold home medications - q6h BSG checks while NPO - SSI as required monitor for hypoglycemia (3) HTN (hypertension): Plan: HTN chronic stable - Hold home ARB - Continue amlodipine when appropriate (4) Gastric ulcer: Plan: PUD chronic and stable - Continue PPI (5) Insomnia: Plan: Insomnia, Depression, Anxiety restarted pm clonazepam --> No withdrawal is noted Continue mirtazapine and trazodone (6) Urinary tract infection: Plan: Patient on them MSSA in his urine on presentation. He is given perioperative Ancef. He will continue Augmentin likely for 5-day total course, last dose 07/25/2022 as this may have a had a play in his fall if it influence some encephalopathy prior to presentation Plan Code: DNR/DNI - confirmed w/ pt and daughter on admission Ortho ordered ASA BID., If patient at rehab may consider Lovenox at rehab Admission and Anticipated Discharge Date Admission Date: July 17, 2022 Subjective Patient is doing well status post left anterior hip replacement. Patient doing well on 08/13/2022 Noted to have a staph urinary tract infection present on admission however it is pansensitive MSSA we will institute oral augmentin as the patient did receive perioperative antibiotics already last dose will be 07/23/2022 will need rehab at time of discharge Physical Exam Physical Exam: Patient awake alert increased left hip pain after ambulation Exam is regular without murmurs lungs are clear without wheeze or crackles extremities are with good peripheral pulses and capillary refill Surgical site still remains clean dry and intact Results & Data Results & Data ([facility]) Vital Signs (Past 12 Hours) Vital Signs Temp Pulse Resp BP BP Pulse Ox O2 Del Method 07/24/22 15:20 97.9 F 87 17 156/78 H 96 Room Air 07/24/22 08:20 89 18 124/76 93 Room Air 07/24/22 07:45 98.2 F 86 17 149/73 H 91 Room Air PG Care Time/CCT Total # of Minutes Spent Total Time Spent with Patient: Total time spent is greater than 50% in coordination of care (as documented) at patient's floor/unit and/or counseling patient: Coding Level of Care Code 09019 SUB INP/OBS CARE Diagnoses Fracture of femoral neck, left S72.002A Type 2 diabetes mellitus E11.9 Diabetes mellitus complication status: without complication 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
[2022-07-24] MEDS: MIRTAZAPINE TAB 15 MG TAB PO SCH (21:05)
[2022-07-24] MEDS: clonazePAM 1 MG TAB PO SCH (21:05)
[2022-07-24] MEDS: traZODone HCL 100 MG TAB PO SCH (21:05)
[2022-07-24] MEDS: FESOTERODINE FUMARATE PO SCH (21:06)
[2022-07-24] MEDS: SODIUM CHLORIDE 5% (MURO) OP OINT 3.5 GM TUBE OP SCH (21:07)
[2022-07-25] MEDS: ACETAMINOPHEN 500 MG TAB PO SCH ×2 (01:46→10:39)
[2022-07-25] MEDS: oxyCODONE HCL IR 5 MG TAB (IMMEDIATE RELEASE) PO PRN ×2 (07:58→14:28)
[2022-07-25] MEDS: metFORMIN HCL 500 MG TAB PO SCH (07:59)
[2022-07-25] MEDS: amLODIPine BESYLATE 5 MG TAB PO SCH (08:00)
[2022-07-25] MEDS: DOCUSATE SODIUM/SENNA 50/8.6MG TAB PO SCH (08:00)
[2022-07-25] MEDS: CHOLECALCIFEROL 1,000 UNITS 25 MCG TAB PO SCH (08:01)
[2022-07-25] MEDS: ASPIRIN 81 MG ECTAB PO SCH (08:01)
[2022-07-25] MEDS: PANTOprazole 40 MG TAB PO SCH (08:01)
[2022-07-25] MEDS: prednisoLONE acetate 1% OP SUSP 5 ML BTL OPB SCH (08:01)
[2022-07-25] MEDS: INSULIN ASPART PER UNIT SC SCH ×2 (09:38→13:10)
[2022-07-25] MEDS: SIMVASTATIN 20 MG TAB PO SCH (10:40)
[2022-07-25] MEDS: MULTIVITAMIN TAB PO SCH (10:41)
[2022-07-25] MEDS: LOSARTAN POTASSIUM 50 MG TAB PO SCH (10:41)
--- NOTE | 2022-07-25 13:11 | Discharge Summary ---
Date of Service July 25, 2022 Admission HPI Per Admitting Provider This is an 86-year-old male with a history of hyperlipidemia, GERD, prostate adenocarcinoma, peptic ulcer disease, hypertension, type 2 diabetes, dementia who presented to [facility] following a fall and landing on his L hip. Since that time, he has had hip pain and an inability to ambulate. He denies hitting his head. He denies neck pain or head pain. He does not think he lost consciousness but said 'everything happened so fast.' He lives at home alone and does not have home health aids. His daughter says he reports feeling dizzy often, sometimes while standing up. He is often quite anxious and has been on Klonapin, mirtazapine, trazodone for a long time. He denies issues with voiding or stooling. No recent illnesses. He ambulates with a walker at baseline. In the ED, patient was found to be hemodynamically stable with blood pressure 170/90, heart rate 85, afebrile. Admission labs revealing leukocytosis to 18.6 with a left shift, relative monocytosis and lymphopenia. BUN 16/creatinine 0.82. X-ray of the left hip did demonstrate impacted fracture of the left femoral neck. He was given morphine 4 mg IV. Orthopedics was spoken to by the emergency physician. Principal Diagnosis Left acute hip fracture with bipolar arthroplasty Urinary tract infection present on admission treated Discharge Exam The patient appeared stable Vital signs as documented. Lungs are clear to auscultation and appear unlabored Cardiac exam, Rhythm is regular.. No murmurs, rubs or gallops. Abdominal exam reveals normal bowel sounds, soft non tender, no masses Extremities are nonedematous and both pedal pulses are normal. Neurologic exam is alert and oriented, no focal loss of strength or sensation Skin is without bruises or rashes Psychologically is without concerns for anxiety or depression. Discharge Data Allergies Allergy/AdvReac Type Severity Reaction Status Date / Time No Known Allergies Allergy Verified 07/17/22 14:59 Consultations 07/17/22 13:43 ED Decision to Admit Stat 07/17/22 16:05 Consult Orthopedic Surgery Routine Procedures Performed Operation Date: 07/18/22 08:50 Actual Procedures p Left Cemented Anterior Bipolar Arthroplasty(Left) - Bo Gill DO Ordered Studies 07/18/22 14:45 FL hip LT 1V Routine Hospital Course (1) Fracture of femoral neck, left: Acute Fragility Fracture of L Femoral Neck s/p mechanical fall. 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 Silva -- surgical correction 07/18/22 Pain control with oral medications and localized ice (2) Type 2 diabetes mellitus: T2DM chronic stable - A1c at 6.5% in 05/2022 - controlled with metformin -Resume home medications of metformin and a carbohydrate conservative diet (3) HTN (hypertension): HTN chronic stable -Resume ARB for prevention of diabetic nephropathy -Continue with amlodipine (4) Gastric ulcer: PUD chronic and stable - Continue PPI (5) Insomnia: Insomnia, Depression, Anxiety pm clonazepam --> No withdrawal is noted Continue mirtazapine and trazodone (6) Urinary tract infection: Patient on them MSSA in his urine on presentation. He is given perioperative Ancef. He will continue Augmentin for 5-day total course, last dose 07/25/2022 as this may have a had a play in his fall if it influence some encephalopathy prior to presentation Plan Code: DNR/DNI - confirmed w/ pt and daughter on admission Ortho ordered ASA BID., Complete 1 month course Total Time Total Time Spent Total Time Spent (In Minutes): It required greater than 30 minutes to prepare this patient for discharge Discharge Plan Discharge Items Patient Disposition: Transfer [facility] Reason For Visit: L HIP FX Discharge Diagnosis: Left hip fracture with repair uti poa treated Activity: Per Instructions section Activity Comment: post bipolar hip arthroplasty rehab Non-emergency contact: Primary Care Provider Follow-up/Referrals: Bo Mitchell, [Primary Care Provider] - Diet: Carb Consistent or DM2 Addtl Attending Provider Instructions: please schedule follow up with pcp upon discharge from rehab Addtl Fiber Analyst Provider Instructions: ORTHOPEDIC INSTRUCTIONS Hip Hemiarthroplasty Activity and Therapy Recommendations: 1. You were shown a series of exercises in the hospital. Do these exercises three times each day if you are able. 2. Get up and walk several times each day if you are capable. Make sure you have assistance is needed. For the first four weeks, try not to stand or walk for more than one hour at a time. If you do stand or walk for more than one hour, you will not hurt anything, but your leg will likely swell. 3. As you feel comfortable, you may change from the walker or crutches to a cane and then to independent walking if you are able. Please be safe. Medications: 1. Narcotic You will likely be sent from the hospital with the narcotic pain medication that worked best throughout your stay. 2. Aspirin You will be required to take Aspirin 81mg twice a day for 6 weeks after surgery to prevent blood clots. 3. Other medications may be given for specific circumstances. If you have any questions, please call the office at [phone]. 4. Resume previous home medications unless otherwise instructed TEDs/Elastic Stockings: The white elastic stockings help limit swelling and prevent blood clots from forming in your legs. The more you wear them, the more they work. Wear them for six weeks. Dressing Care: Leave the Silverlon dressing in place for 7 days. After 7 days you may remove the dressing. If the incision is not draining then you may leave the kate open to air. If there is a little bit of drainage or if the kate are getting stuck on your clothing then cover the incision with a dry dressing. The kate will be removed at your 2 week follow-up appointment. Showering: You may shower with the Silverlon dressing in place. Do not let the shower spray hit the dressing directly. Pat the Silverlon dressing dry. If the dressing becomes wet underneath, then simply remove the dressing. Keep the incision dry until you are 7 days out from the day of surgery. After 7 days you may remove the Silverlon dressing and shower with the kate exposed. Let soapy water run over the kate and pat them dry. Do not scrub or soak the incision. Things To Watch For: 1. Drainage from the incision site that occurs more than one week after your surgery. 2. Increased redness at the incision site. 3. Fever above 102 degrees Fahrenheit. 4. Unusual chest pain or shortness of breath. 5. Call [facility] at with any of the above problems Follow-Up Visit: Follow-up with Dr. Gill's PA (Bo Chu) 2-3 weeks after your day of surgery. He will remove your kate and answer any questions. If you have any additional questions or concerns, Dr Gill is usually in the office at the same time and will be available Please call the office to make an appointment for a time that works for you. Pending Studies at Discharge: No Stand-Alone Forms: My [facility] Skilled Items Patient informed of condition?: Yes DNR: Yes Discharge Level of Care: Acute rehab Communicable Disease: No Discharge Prognosis: Stable Lines: None Urinary Catheter: No Medications and DC Order Prescriptions: New aspirin 81 mg Tablet,Delayed Release (Dr/Ec) 81 mg PO BID Qty: 60 0RF acetaminophen [Tylenol Extra Strength] 500 mg Tablet 1,000 mg PO Q8H Qty: 90 0RF sennosides-docusate sodium [Senokot-S] 8.6-50 mg Tablet 2 tab PO QAM Qty: 30 0RF oxycodone 5 mg Tablet 5 mg PO Q6H MDD 15mg PRN (Reason: pain) Qty: 30 0RF pantoprazole 40 mg Tablet,Delayed Release (Dr/Ec) 40 mg PO QAM Qty: 30 0RF Continued losartan 100 mg tablet 100 mg PO QDL Qty: 90 3RF mirtazapine 15 mg tablet 15 mg PO HS Qty: 90 1RF clonazepam 1 mg tablet 1 mg PO HS Qty: 30 5RF trazodone 100 mg tablet 100 mg PO HS Qty: 90 3RF Toviaz 4 mg tablet extended release 24 hr 4 mg PO QPM Qty: 90 3RF multivitamin [Multiple Vitamins] tablet 1 tab PO QDL cholecalciferol (vitamin D3) 25 mcg (1,000 unit) capsule 25 mcg PO QAM simvastatin 20 mg tablet 20 mg PO QDL Qty: 90 3RF omega 4-jys-nmn-fish oil [Fish Oil] 1,000 mg (120 mg-180 mg) capsule 1,100 cap PO ACHS Alecia 128 2 % drops 1 drp ophthalmic (eye) BID Label Comments: 5% sodium chloride [Alecia 128] 5 % ointment 1 applic ophthalmic (eye) HS Label Comments: BOTH EYES metformin 500 mg tablet 500 mg PO QAM Qty: 90 3RF amlodipine 5 mg tablet 7.5 mg PO QAM Qty: 135 3RF prednisolone acetate 1 % drops,suspension 1 drp OPB QAM esomeprazole magnesium 40 mg capsule,delayed release(DR/EC) 40 mg PO DAILYBB Discharge Orders: Discharge Order (Routine); Ordered 07/25/22 Ordered By: Gerard Kasper Admission Data Admit Date/Time: 07/17/22 14:07 Attending Provider: Gerard Kasper Admit Provider: Reece Murguia Primary Care Provider: Bo Mitchell Other Providers: Laxmi Ibrahim [place] ; [place] ; Sean Bai ; Suleiman Silva Coding Level of Care Code HOSP INP/OBS DISCH >30 MIN Diagnoses Fracture of femoral neck, left S72.002A Type 2 diabetes mellitus E11.9 Diabetes mellitus complication status: without complication Diabetes mellitus terminal gauger insulin use: unspecified long-term insulin use status HTN (hypertension) I10 Gastric ulcer K25.9 Insomnia G47.00 Urinary tract infection N39.0
== END 2022-07-25 15:32 | DRG 522 ==
LOC: ED 12:02 → SUATTDRO 14:07 → 3N 14:07